=== PATIENT | male | born 1965 | race Caucasian/White ===

== ENCOUNTER 2025-01-19 09:02 | Outpatient (OUT) | payer MEDICARE, SELFPAY ==
--- OUTSIDE RECORDS SUMMARY | 2024-11-09 09:00 | XMS_ITS ---
Author Organization [facility] Address [address] [place] [address] Care Team Providers Care Locomotive Engineer Diesel Name Role Phone Eunice Bright Primary Care Provider Celina Person [phone] REASON FOR VISIT 6 MONTH Encounters Encounter Location Date Provider Diagnosis [facility] [address] [place] [address] 11/09/2024 Celina Person Plan Of Treatment Next Appt Details Provider Name:Eunice harper, 02/22/2025 11:15:00 AM, [address] [place], [address], Provider Name:Yuliana English , 04/05/2025 10:05:00 AM, [address] [place], [address], Progress Notes * STEVE BUTLERDOB: [birth year] (59 yo M)Acc No.[id number]:11/09/2024 Patient: Jane MANSTEVE Provider: Laith Person :1965 A ge:58 Y S ex:Male Date:11/09/2024 Address:[address] [place] [address] [id number] Pcp:Eunice Bright Subjective: * Chief Complaints: * 1 . 6 MONTH. * Medical History: Objective: * Vitals: Assessment: Plan: * Treatment: * Images: * Electronic signature of Eden Person on 01/19/2025 at 09:06 AM EDT Sign off status: Pending * Provider: Laith Person Date: 0 11/09/2024 Generated for Mary Randle/Abad on: 0 01/19/2025 09:06 AM EDT
--- OUTSIDE RECORDS SUMMARY | 2025-01-18 10:05 | XMS_ITS ---
Author Organization [facility] Address [address] [place] [address] Care Team Providers Care Chemistry Technologist Name Role Phone Eunice Bright Primary Care Provider [phone] Martha Rider [phone] REASON FOR VISIT FILLING Encounters Encounter Location Date Provider Diagnosis [facility] [address] [place] [address] 01/18/2025 Martha Rider Plan Of Treatment Next Appt Details Provider Name:Eunice harper, 02/22/2025 11:15:00 AM, [address] [place], [address], Provider Name:Yuliana English , 04/05/2025 10:05:00 AM, [address] [place], [address], Progress Notes * STEVE BUTLERDOB: [birth year] (59 yo M)Acc No.[id number]:01/18/2025 Patient: Jane MAN STEVE Tellez Provider: Rosalinda Rider :1965 A ge:59 Y S ex:Male Date:01/18/2025 Address:[address] [place] [address] [id number] Pcp:Eunice Bright Subjective: * Chief Complaints: * 1 . FILLING. * Medical History: Objective: * Vitals: Assessment: Plan: * Treatment: * Images: * Electronic signature of Jing Rider , DMD on 01/19/2025 at 09:05 AM EDT Sign off status: Pending * Provider: Rosalinda Rider Date: 0 01/18/2025 Generated for Mary Randle/Abad on: 0 01/19/2025 09:05 AM EDT
--- OUTSIDE RECORDS SUMMARY | 2025-01-19 09:06 | XMS_ITS | Encounter Summary ---
Author Organization [facility] Address [facility] [place] [id number] Care Team Providers Care Ship Carpenter Name Role Phone Wayne Meyers MD Primary Care Provider [phone] Source Comments In the event this information is protected by the Federal Confidentiality of Alcohol and Drug AbusePatient Records regulations: The Federal rules restrict any use of the information to criminally investigate or prosecute any alcohol or drug abuse patient.[facility] Encounter Details Date Type Department Care Team (Late st Contact Info) Description 11/15/2019 Patient Msg Rehab Medicine [address] [phone] Eunice Shepherd MD [address] [phone] RE: Request an Appointment Social History Tobacco Use Types Packs/Day Years Used Date Smoking Tobacco: Former Smokeless Tobacco: Former PHQ-2 Answer Date Recorded PHQ-2 score 3 04/15/2019 Sex and Gender Information Value Date Recorded Sex Assigned at Not on file Legal Sex Male 1:28 PM EDT Gender Identity Not on file Sexual Orientation Not on file documented as of this encounter Plan of Treatment Not on file documented as of this encounter Visit Diagnoses Not on filedocumented in this encounter Care Teams Ship Carpenter Relationship Specialty Start Date End Date Wayne Meyers MD [address] [place] [address] PCP - General Family Medicine 04/12/19 documented as of this encounter
--- OUTSIDE RECORDS SUMMARY | 2025-01-19 09:06 | XMS_ITS | Encounter Summary ---
Author Organization [facility] Address [facility] [place] [id number] Care Team Providers Care Jewelry Engraver Name Role Phone Wayne Meyers MD Primary Care Provider [phone] Source Comments In the event this information is protected by the Federal Confidentiality of Alcohol and Drug AbusePatient Records regulations: The Federal rules restrict any use of the information to criminally investigate or prosecute any alcohol or drug abuse patient.[facility] Encounter Details Date Type Department Care Team (Late st Contact Info) Description 02/22/2020 Patient Msg Rehab Medicine [address] [phone] Eunice Shepherd MD [address] [phone] RE: Request an Appointment Social History Tobacco Use Types Packs/Day Years Used Date Smoking Tobacco: Former Smokeless Tobacco: Former PHQ-2 Answer Date Recorded PHQ-2 score 3 04/15/2019 Sex and Gender Information Value Date Recorded Sex Assigned at Not on file Legal Sex Male 1:28 PM EDT Gender Identity Not on file Sexual Orientation Not on file COVID-19 Exposure Response Date Recorded In the last month, have you been in contact with someone who was confirmed or suspected to have Coronavirus / COVID-19? No / Unsure 02/22/2020 8:45 AM EDT documented as of this encounter Plan of Treatment Not on file documented as of this encounter Visit Diagnoses Not on filedocumented in this encounter Care Teams Jewelry Engraver Relationship Specialty Start Date End Date Wayne Meyers MD [address] [place] [id number] PCP - General Family Medicine 04/12/19 documented as of this encounter
--- OUTSIDE RECORDS SUMMARY | 2025-01-19 09:06 | XMS_ITS | Encounter Summary ---
Author Organization [facility] Address [address] [place] [address] Care Team Providers Care Truck Trailer Mechanic Name Role Phone Wayne Meyers MD Primary Care Provider [phone] Source Comments In the event this information is protected by the Federal Confidentiality of Alcohol and Drug AbusePatient Records regulations: The Federal rules restrict any use of the information to criminally investigate or prosecute any alcohol or drug abuse patient.[facility] Encounter Details Date Type Department Care Team (Late st Contact Info) Description 07/18/2019 Patient Msg Rehab Medicine [address] [phone] Provider, [facility] surgical eval info Social History Tobacco Use Types Packs/Day Years [...] on filedocumented in this encounter Care Teams Truck Trailer Mechanic Relationship Specialty Start Date End Date Wayne Meyers MD [address] [place] [address] PCP - General Family Medicine 04/12/19 documented as of this encounter
--- OUTSIDE RECORDS SUMMARY | 2025-01-19 09:06 | XMS_ITS | Patient Health Record ---
Author Organization [email or web address] Address [address] [place] [address] Care Team Providers Care Bread Jockey Name Role Phone Eunice Bright Primary Care Provider [phone] Dr. Medhat Flores Unavailable [phone] Aniyah Suarez Unavailable [phone] Checo Grayson Unavailable [phone] Celina Person Unavailable [phone] Martha Rider Unavailable [phone] Allergies No Known Allergies Reason For Referral No Information Medications Medication SIG (Take, Route, Frequency, Duration) Notes Start Date End Date Status Gabapentin 300 MG 1 capsule Orally Onc e a day Not-Taking tiZANidine HCl 4 MG 1 tablet as needed Orally Three times a day Not-Taking Cyclobenzaprine HCl 10 MG 1 tablet at be dtime as needed Orally three times a day (tid) as needed (prn) Not-Taking Diclofenac 35 MG 1 capsule as needed Orally Three times a day Not-Taking QUEtiapine Fumarate 400 MG TAKE 1 TABLET BY MOUTH DAILY AT BEDTIME Orally daily; Duration: 30 days Active lamoTRIgine 200 MG TAKE 1 TABLET BY MOUTH DAILY Orally daily; Duration: 30 days Active buPROPion HCl 100 MG 1 tablet Orally artis ly in AM; Duration: 30 days Active Diclofenac Potassium 50 MG 1 tablet with food or milk as needed Orally Twice a day Active Social History Tobacco Use: Social History Observation Description Date Details (start date - stop date) Current Smoker NA - NA Alcohol Screening: Question Answer Notes Did you have a drink contain ing alcohol in the past year? Yes How often did you have a dri nk containing alcohol in the past year? Two to four times a month (2 points) How many drinks did you have on a typical day when you were drinking in the past year? 3 or 4 (1 point) How often did you have six o r more drinks on one occasion in the past year? Less than monthly (1 point) Points 4 Interpretation Positive Tobacco Control (Standard) Question Answer Notes Tobacco use: Current smoker How often do you smoke cigarettes? Every day How many cigarettes a day do you smoke? 5 or les s Problems Problem Type SNOMED Code ICD Code Onset Dates Problem Status W/U Status Risk Notes Problem Bipolar affective disorder, currently manic, moderate (315995606) Bipolar 1 disorder with moderate earline (F31.12) Active confirmed Vital Signs Heart Rate 79 /min 08/24/2024 Temperature 98.8 degrees Fahrenheit 08/24/2024 Oximetry 94 % 08/24/2024 Blood pressure diastolic 92 mm Hg 08/24/2024 Height 76 in 08/24/2024 Blood pressure systolic 145 mm Hg 08/24/2024 Weight 249.8 lbs 08/24/2024 BMI 30.4 kg/m2 08/24/2024 Encounters Encounter Location Date Provider Diagnosis [facility] [address] [place] [address] 02/19/2024 Aniyah Suarez [facility] [address] [place] [address] 08/30/2024 Checo Filimarkell Bipolar 1 disorder with moderate earline F31.12 [facility] [address] [place] [address] 05/06/2024 Medhat Flores Dental caries on pit and fissure surface penetrating into dentin K02.52 ; Necrosis of pulp K04.1 ; Encounter for dental examination and cleaning with abnormal findings Z01.21 ; Other dental procedure status Z98.818 and Disturbances in tooth eruption K00.6 [facility] [address] [place] [address] 05/09/2024 Celina Person Acute gingivitis, plaque induced K05.00 [facility] [place] [address] 09/27/2024 Martha Rider [facility] [address] [place] [address] 01/12/2025 Martha Rider [facility] [address] [place] [place] [address] 03/02/2024 Checo Grayson Bipolar 1 disorder with moderate earline F31.12 [facility] [address] [place] [address] 08/24/2024 Checo Grayson Bipolar 1 disorder with moderate earline F31.12 Assessments Encounter Date Diagnosis (ICD Code) Assessment Notes Treatment Notes Treatment Clinical Notes Section Notes 03/02/2024 Bipolar 1 disorder with moderate earline (ICD-10 - F31.12) Patient will continue current treatment plan. Patient verbally acknowledges understanding instructions including medication education and has no further questions comments or concerns at this time. . Follow in 6 Month . Recommended treatment for Bipolar disorder includes FDA approved and OFF label medications: second generation antipsychotics and mood stabilizers. Discussed life threatening side effect of Lamotrigine. Pt is to monitor for new skin rashes or sensation of a sunburn or itchiness or redness, mouth sores or sores in mucus membranes, and call provider immediately and or go to ER, and stop the medication. Second generation antipsychotic medications can cause headache, drowsiness, agitation, dizziness, nausea, or extrapyramidal symptoms such as tremors, muscle spasms, slowness of movement or jerking of muscles. . Stable . The patient verbalizes understanding with all questions answered thoroughly and is in agreement with treatment plan. . Continue current treatment. Call for problems . GOALS: . Maintain medication regimen . _Improve mood stability . _Improve anxiety control . _Improve social and interpersonal functioning . Patient/Guardian will call sooner if symptoms worsen. Patient understands to go to ER if needed if symptoms become severe. . Crisis Intervention plan was discussed and agreed upon. Patient/Guardian will call 911 in case of emergency. Emergency contact information was provided to the patient/guardian. . Pharmacological management: . Alternative medication plans were discussed with the patient/guardian. All relevant side effects and potential adverse effects were discussed with the patient/guardian. Standard cautions and potential benefits were discussed. Patient/Guardian consented to the start/continuation of the treatment. 05/06/2024 Dental caries on pit and fissure surface penetrating into dentin (ICD-10 - K02.52) 05/09/2024 Acute gingivitis, plaque induced (ICD-10 - K05.00) 08/24/2024 Bipolar 1 disorder with moderate earline (ICD-10 - F31.12) Patient will continue current treatment plan. Patient verbally acknowledges understanding instructions including medication education and has no further questions comments or concerns at this time. . Follow in 6 Month . Recommended treatment for Bipolar disorder includes FDA approved and OFF label medications: second generation antipsychotics and mood stabilizers. Discussed life threatening side effect of Lamotrigine. Pt is to monitor for new skin rashes or sensation of a sunburn or itchiness or redness, mouth sores or sores in mucus membranes, and call provider immediately and or go to ER, and stop the medication. Second generation antipsychotic medications can cause headache, drowsiness, agitation, dizziness, nausea, or extrapyramidal symptoms such as tremors, muscle spasms, slowness of movement or jerking of muscles. . Stable . The patient verbalizes understanding with all questions answered thoroughly and is in agreement with treatment plan. . Continue current treatment. Call for problems . GOALS: . Maintain medication regimen . _Improve mood stability . _Improve anxiety control . _Improve social and interpersonal functioning . Patient/Guardian will call sooner if symptoms worsen. Patient understands to go to ER if needed if symptoms become severe. . Crisis Intervention plan was discussed and agreed upon. Patient/Guardian will call 911 in case of emergency. Emergency contact information was provided to the patient/guardian. . Pharmacological management: . Alternative medication plans were discussed with the patient/guardian. All relevant side effects and potential adverse effects were discussed with the patient/guardian. Standard cautions and potential benefits were discussed. Patient/Guardian consented to the start/continuation of the treatment. 08/30/2024 Bipolar 1 disorder with moderate earline (ICD-10 - F31.12) 05/06/2024 Necrosis of pulp (ICD-10 - K04.1) 05/06/2024 Encounter for dental examination and cleaning with abnormal findings (ICD-10 - Z01.21) 05/06/2024 Other dental procedure status (ICD-10 - Z98.818) 05/06/2024 Disturbances in tooth eruption (ICD-10 - K00.6) Plan Of Treatment Next Appt Details Provider Name:Eunice harpre, 02/22/2025 11:15:00 AM, [address] [facility], [place], [address], Provider Name:Yuliana English , 04/05/2025 10:05:00 AM, [address], [place], [address], Insurance Providers Payer Name Payer Address Payer Phone Subscriber Number Group Number Insured Name Patient Relationship to Insured Coverage Start Date Coverage End Date [employer] E [address] [place] [address] [id number] STEVE POWELL Self - patient is the insured 3 [employer] [address] [place] [address] [id number] STEVE POWELL Self - patient is the insured 1 2 [employer] CLAIM[employer] [address] [address] [place] [address] [phone] [id number] STEVE POWELL Self - patient is the insured 1 2 [employer] [facility] [address] [address] [place] [address] [id number] STEVE POWELL Self - patient is the insured 1 2 DENTAL [employer] MEDICARE [address] [place] [address] [id number] STEVE POWELL Self - patient is the insured 6 2 DENTAL [employer] MEDICARE [address] [address] [place] [address] [id number] STEVE POWELL Self - patient is the insured 3 Medical (General) History Medical History History ICD Code back injury bipolar Surgical History Surgery Date(Month/Year) hernia tonsillectomy ablation- 11/02
--- OUTSIDE RECORDS SUMMARY | 2025-01-19 09:06 | XMS_ITS | Clinical Summary ---
Author Organization [facility] Address [address] [place] [address] Care Team Providers Care Optics Test Technician Name Role Phone Wayne Meyers MD Primary Care Provider [phone] Allergies No known active allergies Medications DULoxetine (CYMBALTA) 30 mg capsule Take one capsule at bedtime x one week, then increase to two capsules daily as tolerated 60 capsule 2 0 Active Additional Information Patient taking differently: 30 mg ORAL DAILY, Take one capsule at bedtime x one week, then increase to two capsules daily as tolerated, Reason: Changing Therapy/Dosage Form, Reported on 03/12/2020 meloxicam (MOBIC) 7.5 mg tablet Take 1 tablet by mouth twice daily with meals. 60 tablet 1 0 Active DULoxetine (CYMBALTA) 60 mg capsule Take 1 capsule by mouth once daily. 90 capsule 1 0 Active gabapentin (NEURONTIN) 300 mg capsule Take 1 capsule by mouth three times daily for 31 days. 90 capsule 2 1 Active Active Problems Problem Noted Date Diagnosed Date Spinal stenosis of lumbar re gion without neurogenic claudication 04/03/2020 Social History Tobacco Use Types Packs/Day Years Used Date Smoking Tobacco: Former Smokeless Tobacco: Former PHQ-2 Answer Date Recorded PHQ-2 score 3 04/15/2019 Area Deprivation Index Answer Date Geronimo rded National Score (1-100), lower number is lower ri sk Not on file 05/19/2020 State Score (1-10), lower number is lower risk N ot on file 05/19/2020 Data from: https://www.neighborhoodatlas.medicine.[facility].edu/. Last address used for calculation Not on file 05/19/2020 Sex and Gender Information Value Date Recorded Sex Assigned at Not on file Legal Sex Male 1:28 PM EDT Gender Identity Not on file Sexual Orientation Not on file Last Filed Vital Signs Vital Sign Reading Time Taken Comments Blood Pressure 122/65 05/21/2020 12:19 PM EST Pulse 79 05/21/2020 12:19 PM EST Temperature 36.4 C (97.5 F) 04/03/2020 10:41 AM EDT Respiratory Rate 14 04/03/2020 11:11 AM EDT Oxygen Saturation 98% 04/03/2020 11:11 AM EDT Inhaled Oxygen Concentration - - Weight 111.1 kg (245 lb) 05/21/2020 12:19 PM EST Height 193 cm (6' 4 ) 03/12/2020 11:11 AM EDT Body Mass Index 29.82 03/12/2020 11:11 AM EDT Plan of Treatment Health Maintenance Due Date Last Done Comments Anxiety Screening 12/12/1981 Depression Screening 12/12/1981 HIV Screening 12/12/1981 Hepatitis C Screening 12/12/1981 DTaP,Tdap,Td Vaccine (1 - Tdap) 12/12/1982 Lipid Screening 12/12/1998 CT Colonography 12/12/2008 Cologuard (FIT-DNA) 12/12/2008 Colonoscopy 12/12/2008 Colorectal Cancer Screening 12/12/2008 Diabetes Screening 12/12/2008 Fecal Occult Blood 12/12/2008 Prostate Cancer Screening Discussion 12/12/2008 Sigmoidoscopy 12/12/2008 Pneumococcal Vaccine: 50+ (1 of 1 - PCV) 12/12/2013 Shingrix Vaccine (1 of 2) 12/12/2013 Influenza Vaccine (#1) 2025 0, 03/25/2020, 02/24/2019 RSV Vaccine (1 - 1-dose 75+ series) 12/12/2038 Insurance [employer] Care Teams Optics Test Technician Relationship Specialty Start Date End Date Wanye Meyers MD [address] [place] [address] PCP - General Family Medicine 04/12/19
--- OUTSIDE RECORDS SUMMARY | 2025-01-19 09:06 | XMS_ITS | Encounter Summary ---
Author Organization [facility] Address [address] [place] [address] Care Team Providers Care Route Sales Driver Name Role Phone Wayne Meyers MD Primary Care Provider [phone] Encounter Details Date Type Department Care Team (Late st Contact Info) Description 04/29/2023 Abstract [facility] [address] [place] [address] Wayne Meyers MD [address] [place] [address] Social History Tobacco Use Types Packs/Day Years Used Date Smoking Tobacco: Some Days Cigarettes Smokeless Tobacco: Former Humiliation, Afraid, Rape, and Kick questionnair e Answer Date Recorded Within the last year, have y ou been afraid of your partner or ex-partner? No 04/21/2023 Within the last year, have y ou been humiliated or emotionally abused in other ways by your partner or ex-partner? No Within the last year, have y ou been kicked, hit, slapped, or otherwise physically hurt by your partner or ex-partner? No 04/21/2023 Within the last year, have y ou been raped or forced to have any kind of sexual activity by your partner or ex-partner? No 04/21/2023 Social Connection and Isolat ion Panel [NHANES] Answer Date Recorded In a typical week, how many times do you talk on the phone with family, friends, or neighbors? More than three times a week 04/21/2023 How often do you get togethe r with friends or relatives? Twice a week 04/21/2023 How often do you attend chur ch or buddhism services? 1 to 4 times per year 04/21/2023 Do you belong to any clubs o r organizations such as anabaptism groups, unions, fraternal or athletic groups, or school groups? No 04/21/2023 How often do you attend meet ings of the clubs or organizations you belong to? Never 04/21/2023 Are you , , di vorced, , never , or living with a partner? 04/21/2023 AUDIT-C Answer Date Recorded Q1: How often do you have a drink containing alc ohol? 2-3 times a week 04/28/2023 Q2: How many drinks containi ng alcohol do you have on a typical day when you are drinking? 3 or 4 04/28/2023 Q3: How often do you have si x or more drinks on one occasion? Never 04/28/2023 Overall Financial Resource Strain (CARDIA) Answe r Date Recorded How hard is it for you to pa y for the very basics like food, housing, medical care, and heating? Not hard at all 04/21/2023 PHQ-2 Answer Date Recorded Patient Health Questionnaire-2 Score 0 04/28/2023 [facility] - Occupational Stress Questionnaire Answer Date Recorded Do you feel stress - tense, restless, nervous, or anxious, or unable to sleep at night because your mind is troubled all the time - these days? Only a little 04/21/2023 Exercise Vital Sign Answer Date Recorde d On average, how many days pe r week do you engage in moderate to strenuous exercise (like a brisk walk)? 5 days 04/21/2023 On average, how many minutes do you engage in exercise at this level? 30 min 04/21/2023 Hunger Vital Sign Answer Date Recorded Within the past 12 months, y ou worried that your food would run out before you got the money to buy more. Never true 04/21/20 23 Within the past 12 months, t he food you bought just didn't last and you didn't have money to get more. Never true 04/21/2023 PRAPARE - Transportation Answer Date Re corded In the past 12 months, has l ack of transportation kept you from medical appointments or from getting medications? No 12/2022 In the past 12 months, has l ack of transportation kept you from meetings, work, or from getting things needed for daily living? No 04/21/2023 Housing Stability Vital Sign Answer Abhinav e Recorded In the last 12 months, was t here a time when you were not able to pay the mortgage or rent on time? No 04/21/2023 Number of Places Lived in the Last Year Not on f ile 04/21/2023 In the last 12 months, was t here a time when you did not have a steady place to sleep or slept in a snf (including now)? No 04/21/2023 Sex and Gender Information Value Date Recorded Sex Assigned at Not on file Legal Sex Male 6:51 PM EDT Gender Identity Not on file Sexual Orientation Not on file COVID-19 Exposure Response Date Recorded In the last 10 days, have yo u been in contact with someone who was confirmed or suspected to have Coronavirus/COVID-19? No / Unsure 04/21/2023 12:10 PM EST documented as of this encounter Plan of Treatment Upcoming Encounters Date Type Department Care Team (Late st Contact Info) Description 07/11/2025 1:20 PM EST Office Visit [facility] [address] [place] [place] [address] Hayley Mcghee TRAFFIC POLICE OFFICER [address] [place] [address] documented as of this encounter Visit Diagnoses Not on filedocumented in this encounter Additional Health Concerns Assessment Noted Time PHQ-9 Depression Total Score: 0 04/28/20 3:00 PM EST documented as of this encounter Care Teams Route Sales Driver Relationship Specialty Start Date End Date Wayne Meeyrs MD [address] [place] [address] PCP - General Family Medicine 11/18/22 documented as of this encounter
--- OUTSIDE RECORDS SUMMARY | 2025-01-19 09:06 | XMS_ITS | Clinical Summary ---
Author Organization [facility] Address [address] [place] [address], [address] [place] [address] Care Team Providers Care Salesperson Household Appliances Name Role Phone Wayne Meyers MD Primary Care Provider [phone] Allergies No known active allergies Medications gabapentin (NEURONTIN) 300 MG capsule Take 300 mg by mouth 3 times daily. Active meloxicam (MOBIC) 15 MG tablet Take 15 mg by mouth daily Active Social History Tobacco Use Types Packs/Day Years Used Date Smoking Tobacco: Never Assessed Smokeless Tobacco: Never Sex and Gender Information Value Date Recorded Sex Assigned at Not on file Legal Sex Male 7:46 PM EST Gender Identity Not on file Sexual Orientation Not on file Last Filed Vital Signs Vital Sign Reading Time Taken Comments Blood Pressure - - Pulse - - Temperature 36.4 C (97.6 F) 08/05/2019 10:43 AM EST Respiratory Rate - - Oxygen Saturation - - Inhaled Oxygen Concentration - - Weight 127 kg (280 lb) 08/05/2019 10:43 AM EST Height 182.9 cm (6') 08/05/2019 10:43 AM EST Body Mass Index 37.97 08/05/2019 10:43 AM EST Plan of Treatment Not on file Care Teams Salesperson Household Appliances Relationship Specialty Start Date End Date Wayne Meyers MD PCP - General 07/22/19
--- OUTSIDE RECORDS SUMMARY | 2025-01-19 09:06 | XMS_ITS | Clinical Summary ---
Author Organization [facility] Healthcare Address [address] [place] [address] Care Team Providers Care Rn Referral Name Role Phone Wayne Meyers MD Primary Care Provider Allergies No known active allergies Medications buPROPion (Wellbutrin) 100 MG tablet Take 100 mg by mouth in the morning. Active montelukast (Singulair) 10 MG tablet Take 10 mg by mouth at bedtime. Active lamoTRIgine (LaMICtal) 200 MG tablet Take 200 mg by mouth in the morning. Active QUEtiapine (SEROquel) 400 MG tablet Take 1 tablet by mouth at bedtime. Active diclofenac (Voltaren) 50 MG EC tabletIndicatio ns:Cervical arthritis Take 1 tablet (50 mg) by mouth in the morning and 1 tablet (50 mg) before bedtime. Do not crush, chew, or split.. 180 tablet 3 07/11/2024 Active Active Problems Problem Noted Date Diagnosed Date Bipolar affective disorder, currently manic, mod erate 04/28/2023 Carpal tunnel syndrome 11/26/2022 Cervical arthritis 11/26/2022 Obesity (BMI 30.0-34.9) 11/26/2022 Former smoker, stopped smoking in distant past 0 11/26/2022 DANNY (generalized anxiety disorder) 11/26/2022 Hypertriglyceridemia without hypercholesterolemi a 11/26/2022 MDD (major depressive disorder) 11/26/2022 Osteoarthritis of thumbs, bilateral 11/26/2022 Other chronic pain 11/26/2022 Other intervertebral disc degeneration, lumbar r egion 11/26/2022 Paresthesia of skin 11/26/2022 Sacroiliitis, not elsewhere classified Seasonal allergic rhinitis 11/26/2022 Spinal stenosis, lumbar agustin on without neurogenic claudication 11/26/2022 Immunizations Immunization Administration Dates Next Due Influenza, injectable, MDCK, preservative free, quadrivalent 04/28/2023 Influenza, injectable, quadrivalent 05/21/2021 Influenza, injectable, quadrivalent, preservativ e free 03/28/2020,02/24/2019 Family History Medical History Relation Name Comments No Known Problems Brother ajay 1961 No Known Problems Daughter 1 therese 1990 No Known Problems Daughter 2 prisca 1989 Accidental Father heriberto 55 Alcohol abuse Father heriberto Osteoarthritis Mother Osteoporosis Mother 1931 No Known Problems Son vikki 1993 Relation Name Status Comments Brother ajay Alive Daughter 1 therese Alive Daughter 2 prisca Alive Father heriberto Mother Alive Son vikki Alive Social History Tobacco Use Types Packs/Day Years Used Date Smoking Tobacco: Some Days Cigarettes Smokeless Tobacco: Former Alcohol Use Standard Drinks/Week Comments Yes 5 (1 standard drink = 0.6 oz pur e alcohol) Humiliation, Afraid, Rape, and Kick questionnair e [...] week 04/21/2023 How often do you attend [facility] or sikh services? 1 to 4 times per year 04/21/2023 Do you belong to any clubs o r organizations such as congregational groups, unions, fraternal or athletic groups, or [...] Date Recorded Patient Health Questionnaire-2 Score 0 07/11/2024 [employer] [facility] - Occupational Stress Questionnaire Answer Date Recorded [...] place to sleep or slept in a custodial (including now)? No 04/21/2023 Sex and Gender Information Value Date Recorded Sex Assigned at Not on file Legal Sex Male 6:51 PM EDT Gender Identity Not on file Sexual Orientation Not on file Last Filed Vital Signs Vital Sign Reading Time Taken Comments Blood Pressure 138/86 07/11/2024 1:54 PM EST Pulse 98 07/11/2024 1:54 PM EST Temperature 36.5 C (97.7 F) 07/11/2024 1:54 PM EST Respiratory Rate 16 04/28/2023 3:01 PM EST Oxygen Saturation 97% 07/11/2024 1:54 PM EST Inhaled Oxygen Concentration - - Weight 109 kg (240 lb 9.6 oz) 07/11/2024 1:54 PM EST Height 193 cm (6' 4 ) 07/11/2024 1:54 PM EST Body Mass Index 29.29 07/11/2024 1:54 PM EST Plan of Treatment Upcoming Encounters Date Type Department Care Team (Late st Contact Info) Description 07/11/2025 1:20 PM EST Office Visit [facility] [address] [place] [phone] Hayley Mcghee, STRIPPING AND BOOKING MACHINE OPERATOR [address] [place] [phone] Health Maintenance Due Date Last Done Comments CT Colonography 1963 FIT-DNA 1963 FIT 1963 FOBT 1965 Sigmoidoscopy 1963 Influenza Vaccine (#1) 2025 3, 05/21/2021, 03/28/2020, Additional history exists Medicare Annual Wellness (AWV) 07/11/2025 07/11/2024 , 04/28/2023 Colonoscopy 10/05/2028 10/05/2018 Colorectal Cancer Screening 10/05/2028 Procedures Procedure Name Priority Date/Time Associated Diagnosis Comments COLONOSCOPY Routine 10/05/2018 12:00 PM EDT from Last 3 Months or Most Recently Relevant to Health Maintenance Results * Colonoscopy (10/05/2018 12:00 PM EDT) Anatomical Region Laterality Modality Endoscopy 10/05/2018 12:0 0 PM EDT Narrative 10/05/2018 12:00 PM EDT PERFORMED AT [facility] LOCATION:[id number] Normal Procedure Note CONVERSION, GENERIC - 10/29/2022 PERFORMED AT [facility] LOCATION:[id number] Normal us Wayne Meyers MD ENDOSCOPY PROCEDURE ORDERABLES Final Result from Last 3 Months or Most Recently Relevant to Health Maintenance [place] [address] [employer] MEDICARE ADVANTAGE Care Teams Rn Referral Relationship Specialty Start Date End Date Wayne Meyers MD [address] [place] [address] PCP - General Family Medicine 11/18/22
--- OUTSIDE RECORDS SUMMARY | 2025-01-19 09:06 | XMS_ITS | Encounter Summary ---
Author Organization [facility] Address [address] [place] [address] Care Team Providers Care Director Craft Center Name Role Phone Wayne Meyers MD Primary Care Provider [phone] Encounter Details Date Type Department Care Team (Late st Contact Info) Description 07/11/2024 [facility] [address] [place] [address] Ruth Cordova, GODFREY [address] [place] [address] Social History Tobacco Use Types Packs/Day Years [...] often do you attend chur ch or moravian services? 1 to 4 times per year 04/21/2023 Do you belong to any clubs o r organizations such as spiritism groups, unions, fraternal or athletic groups, or [...] Recorded Patient Health Questionnaire-2 Score 0 07/11/2024 [facility] - Occupational Stress Questionnaire Answer Date [...] place to sleep or slept in a alf (including now)? No 04/21/2023 Sex and Gender Information Value Date Recorded Sex Assigned at Not on file Legal Sex Male 6:51 PM EDT Gender Identity Not on file Sexual Orientation Not on file documented as of this encounter Functional Status * Over the past 2 weeks, how often have you been bothered by any of the following problems? Question Answer Date of Assessment Author Little interest or pleasure in doing things Not at all 07/11/2024 1:54 PM Beth Sherwood MA Feeling down, depressed, or hopeless Not at all 07/11/2024 1:54 PM Beth Sherwood MA Patient Health Questionnaire -2 Score 0 07/11/2024 1:54 PM Beth Sherwood MA * Question Answer Date of Assessment Author Trouble falling or staying a sleep, or sleeping too much Not at all 07/11/2024 1:54 PM Beth Sherwood MA Feeling tired or having jen le energy Not at all 07/11/2024 1:54 PM Beth Sherwood MA Poor appetite or overeating Not at all 07/11/2024 1: 54 PM Beth Sherwood MA Feeling bad about yourself - or that you are a failure or have let yourself or your family down Not at all 07/11/2024 1:54 PM Beth Sherwood MA Trouble concentrating on thi ngs, such as reading the newspaper or watching television Not at all 07/11/2024 1:54 PM EST Beth Alexander MA Moving or speaking so slowly that other people could have noticed? Or the opposite - being so fidgety or restless that you have been moving around a lot more than usual. Not at all 07/11/2024 1:54 PM Beth Sherwood MA Thoughts that you would be b veronica off or hurting yourself in some way Not at all 07/11/2024 1:54 PM EST Beth Alexander MA Patient Health Questionnaire -9 Score 0 07/11/2024 1:54 PM Beth Sherwood MA documented as of this encounter Plan of Treatment Upcoming Encounters Date Type Department Care Team (Late st Contact Info) Description 07/11/2025 1:20 PM EST Office Visit [facility] [address] [place] [address] Hayley Mcghee GUARD IMMIGRATION [address] [place] [address] documented as of this encounter Visit Diagnoses Not on filedocumented in this encounter Additional Health Concerns Assessment Noted Time PHQ-9 Depression Total Score: 0 07/11/19 25 1:54 PM EST documented as of this encounter Care Teams Director Craft Center Relationship Specialty Start Date End Date Wayne Meyers MD [address] [place] [address] PCP - General Family Medicine 11/18/22 documented as of this encounter
--- NOTE | 2025-01-19 09:37 | PM.CN ---
Consult Note: HPI Data of Consult Patient: known to practice within the last 3 years Requesting Physician: Minerva Fontana NP Primary Care Provider: NIESHA WOLFE Consult Narrative Reason for consult: back pain Narrative: Larry Martin a pleasant 59 year old male presents for evaluation of chronic low back and left leg pain, former pt of Dr Stevens. pt has a hx of lumbar facet arthropathy, ddd, and stenosis on prior lumbar MRI from 2019, but no recent imaging or PT. Pain today tight sharp and aching 5/10 increasing to 10/10 with standing, walking, twisting, pushing, pulling, lifting, stairs, activity, and bending. pain improved with lying, sitting, and hot showers. notes numbness tingling to left leg. currently utilizing tylenol and diclofenac with mild benefit without side effects. pt does complete stretching at home daily for 10 minutes with mild benefit. cc:: CC: Minerva Fontana NP Review of Systems ROS Musculoskeletal Reports: back pain and extremity pain Meds Home Medications and Allergies Home Medications ?Medication ?Instructions ?Recorded ?Confirmed ?Type baclofen 10 mg tablet See Rx Instructions .Route 01/19/25 Rx .COMPLEX PRN muscle spasm #90 tabs bupropion HCl 100 mg tablet 100 mg PO DAILY 01/19/25 01/19/25 History diclofenac sodium 50 mg 50 mg PO TID PRN pain 01/19/25 01/19/25 History tablet,delayed release lamotrigine 200 mg tablet 100 mg PO DAILY 01/19/25 01/19/25 History (Lamictal) montelukast 10 mg tablet 10 mg PO DAILY PRN sob 01/19/25 01/19/25 History (Singulair) quetiapine 400 mg tablet 400 mg PO DAILY 01/19/25 01/19/25 History Exam Constitutional Documenting provider has reviewed patient's vital signs: yes Common normals: no apparent distress, oriented x3, healthy appearing, alert and well nourished General appearance: cooperative HENMT Common normals: normocephalic, hearing grossly normal bilaterally and moist oral mucous membranes Head and scalp: normocephalic Eye Common normals: PERRL Pupil: PERRL Neck & C-Spine Common normals: full ROM General: normal visual inspection Chest Common normals: inspection of chest normal Respiratory Common normals: normal respiratory effort, no retractions and no use of accessory muscles Back & Pelvis Lumbar spine/lower back: pain with ROM, lumbar spinal tenderness, paraspinal muscle tenderness and straight leg raise positive left Other: intermittent left L3,4,5, S1 radiculopathy increased pain with standing and walking, improved with forward flexion and sitting occasional cramping and weakness to LLE decreased sensation left L3,4,5 strength 4/5 in LLE and 5/5 in RLE Neuro Common normals: oriented x3 Sensorium/orientation: alert Psych Common normals: mental status grossly normal, thought process normal, cooperative, affect normal, speech normal and activity/motor behavior normal Speech: normal speech Thought process: normal thought process Results Additional Findings Additional findings: If on a controlled substance or opioids, I have checked an OAR[place] report on this patient and there are no aberrancies noted in the prescribing history.??If on a controlled substance or opioid a drug screen was completed and reviewed within the last year, and if there has not been a drug screen completed we ordered one today to monitor higher risk, state monitored pain medication use. As part of providing excellent, safe, comprehensive care, the following was completed at our patient's visit: 1. A medication reconciliation and review to ensure accurate knowledge of current/active medications, including asking our patients to inform us about any [id number] medications or herbal remedies/nutritional supplements/alternative remedies. 2. A review to specifically ensure our patients have had annual screening for screening for depression, screening for tobacco use, and screening for unhealthy alcohol use. For concerning screenings had a discussion with the patient, provided patient education, and recommended follow-up with primary care provider when appropriate. If patient noted with a risk of falling, they received education on strength, gait, and balance training to prevent future risk of falling. Portions of this note may have been carried over from the previous visit and updated as appropriate. Please note this office utilizes paper charting in addition to the electronic medical record. A list of current medications, vitals, and PMH is available there as the clinical staff outside of myself do not have access to QuicklyChat charting during the clinic day operations. As part of providing quality comprehensive care the current medications, vitals, and PMH were reviewed in the paper chart. Assessment and Plan Assessment and Plan (1) Lumbar stenosis with neurogenic claudication: (2) Lumbar spondylosis: Plan 59 year old male with chronic low back and left leg pain, as discussed with pt today his symptoms appear most related to lumbar stenosis with NC in addition to facet arthropathy. at this time i recommend pt undergo lumbar xray with flexion and trial PT. start baclofen 5-10mg TID PRN pain/spasms. continue tylenol and diclofenac PRN. f/u 4-6 weeks to evaluate response to therapy and medications. continue HEP as tolerated
== END 2025-01-19 09:03 | disposition home or self-care (01) ==
PROVIDERS: PCP Family Medicine; Visit Provider Nurse Practitioner
DX: M48.062 Spinal stenosis, lumbar region with neurogenic claudication (principal); M47.816 Spondylosis without myelopathy or radiculopathy, lumbar region; M51.369 Other intervertebral disc degeneration, lumbar region without mention of lumbar back pain or lower extremity pain; M41.86 Other forms of scoliosis, lumbar region
CPT/HCPCS: 72114; G0463

== ENCOUNTER 2025-01-19 09:57 | Outpatient (OUT) | payer MEDICARE, SELFPAY ==
--- NOTE | 2025-01-19 | XR_ITS ---
[facility] [place] [id number] Patient Name: STEVE BUTLER MRN: [id number] date: 1965 Sex: M Assigned Patient Location: [facility] Current Patient Location: [facility] Accession/Order Number: [id number] Exam Date: 01/19/2025 11:15 Report Date: 01/19/2025 11:21 At the request of: HUA SINGER NP Procedure: XR lumbar spine 6V w bending LUMBAR SPINE WITH FLEXION-EXTENSION VIEWS-7 views: CLINICAL HISTORY: Acute back pain, greater on the left with pain, numbness and tingling radiating down the leg for the past 2 weeks. No recent injury. M47.816 COMPARISON: 05/29/2020 AP, lateral (neutral, flexion and extension, both oblique and lateral coned-down views of the lumbosacral junction were obtained. There is subtle levoscoliotic curvature. There is no evidence of fracture. There is approximately 5 to 6 mm of anterolisthesis of L4 and L5. This is slightly less prominent with extension. There is mild disc space narrowing from L3 - 4 down. There is minor endplate spurring and mild lower lumbar facet disease. No pars defect is identified. The sacroiliac joints are maintained and show mild degenerative change. There are no paraspinal soft tissue abnormalities. XR/XR lumbar spine 6V w bending IMPRESSION: SUBTLE SCOLIOSIS AND DEGENERATIVE CHANGES, DESCRIBED. Impression dictated by: Chica Reed M.D. 01/19/2025 11:21 AM Dictation Location: [employer] Electronically authenticated by: [id number] Y Date: 01/19/2025 11:21
--- OUTSIDE RECORDS SUMMARY | 2025-01-19 10:04 | XMS_ITS | Clinical Summary ---
Author Organization [facility] Address [address] [place] [address], [address] [place] [address] Care Team Providers Care Eligibility Analyst Name Role Phone Wayne Meyers MD Primary Care Provider [phone] Allergies No known active allergies Medications gabapentin [...] of Treatment Not on file Care Teams Eligibility Analyst Relationship Specialty Start Date End Date Wayne Meyers MD PCP - General 07/22/19
--- OUTSIDE RECORDS SUMMARY | 2025-01-19 10:04 | XMS_ITS | Encounter Summary ---
Author Organization [facility] Address [address] [place] [place] [address] Care Team Providers Care Copper Plater Name Role Phone Wayne Meyers MD Primary Care Provider [phone] Encounter Details Date Type Department Care Team (Late st Contact Info) Description 04/29/2023 Abstract [facility] [address] [place] [address] Wayne Meyers MD [address] [place] [address] Social History Tobacco Use Types Packs/Day Years [...] often do you attend chur ch or worship services? 1 to 4 times per year 04/21/2023 Do you belong to any clubs o r organizations such as jew groups, unions, fraternal or athletic groups, or [...] Recorded Patient Health Questionnaire-2 Score 0 04/28/2023 [facility] - Occupational Stress [...] place to sleep or slept in a retirement (including now)? No 04/21/2023 Sex and Gender [...] [facility] [address] [place] [address] Hayley Mcghee RECORD CHANGER ASSEMBLER [address] [place] [address] documented as of this encounter Visit Diagnoses Not on filedocumented in this encounter Additional Health Concerns Assessment Noted Time PHQ-9 Depression Total Score: 0 04/28/20 3:00 PM EST documented as of this encounter Care Teams Copper Plater Relationship Specialty Start Date End Date Wayne Meyers MD [address] [place] [address] PCP - General Family Medicine 11/18/22 documented as of this encounter
--- OUTSIDE RECORDS SUMMARY | 2025-01-19 10:04 | XMS_ITS | Encounter Summary ---
Author Organization [facility] Address [address] [place] [address] Care Team Providers Care State Wildlife Officer Name Role Phone Wayne Meyers MD Primary Care Provider [phone] Source Comments In the event this information is protected by the Federal Confidentiality of Alcohol and Drug AbusePatient Records regulations: The Federal rules restrict any use of the information to criminally investigate or prosecute any alcohol or drug abuse patient.[facility] Encounter Details Date Type Department Care Team (Late st Contact Info) Description 07/18/2019 Patient Msg Rehab Medicine [address] [id number] Provider, [facility] surgical eval info Social History [...] on filedocumented in this encounter Care Teams State Wildlife Officer Relationship Specialty Start Date End Date Wayne Meyers MD [address] [place] [address] PCP - General Family Medicine 04/12/19 documented as of this encounter
--- OUTSIDE RECORDS SUMMARY | 2025-01-19 10:04 | XMS_ITS | Encounter Summary ---
Author Organization [facility] Address [address] [place] [address] Care Team Providers Care Portrait Artist Name Role Phone Wayne Meyers MD Primary Care Provider [phone] Encounter Details Date Type Department Care Team (Late st Contact Info) Description 07/11/2024 [facility] [address] [place] [address] Ruth Cordova, GODFREY [address] [facility] [address] [address] [place] [address] Social History Tobacco Use Types Packs/Day Years [...] often do you attend chur ch or mandaen services? 1 to 4 times per year 04/21/2023 Do you belong to any clubs o r organizations such as religion groups, unions, fraternal or athletic groups, or [...] Recorded Patient Health Questionnaire-2 Score 0 07/11/2024 [facility] - Occupational Stress Questionnaire Answer Date [...] [facility] [address] [place] [address] Hayley Mcghee DIRECTOR OF CRITICAL CARE [address] [place] [address] documented as of this encounter Visit Diagnoses Not on filedocumented in this encounter Additional Health Concerns Assessment Noted Time PHQ-9 Depression Total Score: 0 07/11/19 25 1:54 PM EST documented as of this encounter Care Teams Portrait Artist Relationship Specialty Start Date End Date Wyane Meyers MD [address] [place] [address] PCP - General Family Medicine 11/18/22 documented as of this encounter
--- OUTSIDE RECORDS SUMMARY | 2025-01-19 10:04 | XMS_ITS | Clinical Summary ---
Author Organization [facility] Address [address] [place] [address] Care Team Providers Care Front Office Spec Name Role Phone Wayne Meyers MD Primary Care Provider [phone] Allergies No known active allergies Medications DULoxetine [...] N ot on file 05/19/2020 Data from: [email or web address] Last address used for calculation [...] 75+ series) 12/12/2038 Insurance [employer] Care Teams Front Office Spec Relationship Specialty Start Date End Date Wayne Meyers MD [address] [facility] [place] [address] PCP - General Family Medicine 04/12/19
--- OUTSIDE RECORDS SUMMARY | 2025-01-19 10:04 | XMS_ITS | Encounter Summary ---
Author Organization [facility] Address [facility] [id number] Care Team Providers Care Brake Repairer Bus Name Role Phone Wayne Meyers MD Primary Care Provider [phone] Source Comments In the event this information is protected by the Federal Confidentiality of Alcohol and Drug AbusePatient Records regulations: The Federal rules restrict any use of the information to criminally investigate or prosecute any alcohol or drug abuse patient.[facility] Encounter Details Date Type Department Care Team (Late st Contact Info) Description 11/15/2019 Patient Msg Rehab Medicine [address] [phone] Eunice Shepherd MD [address] [phone] RE: Request an Appointment Social History Tobacco [...] on filedocumented in this encounter Care Teams Brake Repairer Bus Relationship Specialty Start Date End Date Wayne Meyers MD [address] [place] [address] PCP - General Family Medicine 04/12/19 documented as of this encounter
--- OUTSIDE RECORDS SUMMARY | 2025-01-19 10:04 | XMS_ITS | Encounter Summary ---
Author Organization [facility] Address [facility] [id number] Care Team Providers Care Training And Quality Manager Name Role Phone Wayne Meyers MD Primary Care Provider [phone] Source Comments In the event this information is protected by the Federal Confidentiality of Alcohol and Drug AbusePatient Records regulations: The Federal rules restrict any use of the information to criminally investigate or prosecute any alcohol or drug abuse patient.[facility] Encounter Details Date Type Department Care Team (Late st Contact Info) Description 02/22/2020 Patient Msg Rehab Medicine [address] [phone] Eunice Shepherd MD [address] [phone] RE: Request an Appointment Social History Tobacco [...] on filedocumented in this encounter Care Teams Training And Quality Manager Relationship Specialty Start Date End Date Wayne Meyers MD [address] [place] [address] PCP - General Family Medicine 04/12/19 documented as of this encounter
--- OUTSIDE RECORDS SUMMARY | 2025-01-19 10:04 | XMS_ITS | Encounter Summary ---
Author Organization [facility] Address [address] [place] [address] Care Team Providers Care Java Manager Name Role Phone Wayne Meyers MD Primary Care Provider [phone] Encounter Details Date Type Department Care Team (Late st Contact Info) Description 01/19/2025 Abstract [facility] [address] [place] [address] Wayne Meyers MD [address] [place] [address] Social History Tobacco Use Types Packs/Day Years [...] often do you attend chur ch or hoahaoism services? 1 to 4 times per year 04/21/2023 Do you belong to any clubs o r organizations such as muslim groups, unions, fraternal or athletic groups, or [...] Recorded Patient Health Questionnaire-2 Score 0 07/11/2024 [facility]ational [facility] Questionnaire Answer [...] place to sleep or slept in a correction (including now)? No 04/21/2023 Sex and Gender Information Value Date Recorded Sex Assigned at Not on file Legal Sex Male 6:51 PM EDT Gender Identity Not on file Sexual Orientation Not on file documented as of this encounter Plan of Treatment Upcoming Encounters Date Type Department Care Team (Late st Contact Info) Description 07/11/2025 1:20 PM EST Office [facility] [address] [place] [address] Hayley Mcghee SAWMILLING OPERATOR [address] [place] [address] documented as of this encounter Visit Diagnoses Not on filedocumented in this encounter Additional Health Concerns Assessment Noted Time PHQ-9 Depression Total Score: 0 07/11/19 25 1:54 PM EST documented as of this encounter Care Teams Java Manager Relationship Specialty Start Date End Date Wayne Meyers MD [address] [place] [address] PCP - General Family Medicine 11/18/22 documented as of this encounter
--- OUTSIDE RECORDS SUMMARY | 2025-01-19 10:04 | XMS_ITS | Clinical Summary ---
Author Organization [facility] Healthcare Address [address] [place] [address] Care Team Providers Care Licensed Reactor Operator Name Role Phone Wayne Meyers MD Primary Care Provider [phone] Allergies No known active allergies Medications buPROPion [...] stopped smoking in distant past 0 11/26/2022 ADNNY (generalized anxiety disorder) 11/26/2022 Hypertriglyceridemia without hypercholesterolemi a 11/26/2022 MDD (major depressive disorder) 11/26/2022 Osteoarthritis of thumbs, bilateral 11/26/2022 Other chronic pain 11/26/2022 Other intervertebral disc degeneration, lumbar r egion 11/26/2022 Paresthesia of skin 11/26/2022 Sacroiliitis, not elsewhere classified Seasonal allergic rhinitis 11/26/2022 Spinal stenosis, lumbar agustin on without neurogenic claudication 11/26/2022 Encounters Date Type Department Care Team Description 01/19/2025 Abstract [facility] [address] [place] [address] Wayne Meyers MD from Last 3 Months Immunizations Immunization Administration Dates Next Due Influenza, injectable, MDCK, preservative free, quadrivalent 04/28/2023 Influenza, injectable, quadrivalent 05/21/2021 Influenza, injectable, quadrivalent, preservativ e free 03/28/2020,02/24/2019 Family History Medical History Relation Name Comments No Known Problems Brother ajay 1960 No Known Problems Daughter 1 therese 1990 No Known Problems Daughter 2 prisca 1989 Accidental Father heriberto 55 Alcohol abuse Father heriberto Osteoarthritis Mother Osteoporosis Mother 193 No Known Problems Son vikki 1993 Relation [...] often do you attend chur ch or anabaptism services? 1 to 4 times per year 04/21/2023 Do you belong to any clubs o r organizations such as gnosticism groups, unions, fraternal or athletic groups, or [...] Health Questionnaire-2 Score 0 07/11/2024 [facility] - Occupational [...] place to sleep or slept in a chcf (including now)? No 04/21/2023 Sex and Gender [...] [facility] [place] [facility] [address] [place] [address] Hayley Mcghee COST CONTROL SUPERVISOR [address] [place] [address] Health Maintenance Due Date Last Done Comments CT Colonography 1965 FIT-DNA 1965 FIT 1965 FOBT 1965 Sigmoidoscopy 1965 Influenza Vaccine (#1) 2025 , 05/21/2021, 03/28/2020, Additional history exists Medicare Annual [...] Narrative 10/05/2018 12:00 PM EDT PERFORMED AT [facility] LOCATION:[id number] Normal Procedure Note CONVERSION, GENERIC - 10/29/2022 PERFORMED AT [facility] LOCATION:[id number] Normal Wayne Meyers MD ENDOSCOPY PROCEDURE ORDERABLES Final Result from Last 3 Months or Most Recently Relevant to Health Maintenance [place] [address] [employer] MEDICARE ADVANTAGE Care Teams Licensed Reactor Operator Relationship Specialty Start Date End Date Wayne Meyers MD [address] [place] [address] PCP - General Family Medicine 11/18/22
== END 2025-01-19 09:58 | disposition home or self-care (01) ==
PROVIDERS: PCP Family Medicine; Visit Provider Nurse Practitioner
DX: M47.816 Spondylosis without myelopathy or radiculopathy, lumbar region (principal); M51.369 Other intervertebral disc degeneration, lumbar region without mention of lumbar back pain or lower extremity pain; M41.86 Other forms of scoliosis, lumbar region
CPT/HCPCS: 72114

== ENCOUNTER 2025-02-16 09:47 | Outpatient (OUT) | payer MEDICARE, SELFPAY ==
--- OUTSIDE RECORDS SUMMARY | 2024-11-09 09:00 | XMS_ITS ---
Author Organization [facility] Address [address] [place] [address] Care Team Providers Care Owner Spa Director Name Role Phone Eunice Bright Primary Care Provider [phone] Celina Person [phone] REASON FOR VISIT 6 MONTH Encounters Encounter Location Date Provider Diagnosis [facility] [address] [place] [address] 11/09/2024 Celina Person Plan Of Treatment Next Appt Details Provider Name:Eunice Poonam harper, 02/22/2025 11:15:00 AM, [address] [place], [address], Provider Name:Radha Liz, 02/2025 10:30:00 AM, [address], [place], [address], Provider Name:Yuliana English , 04/05/2025 10:05:00 AM, [address], [place], [address], Progress Notes * ISABELLE BUTLERDOB: [birth year] (59 yo M)Acc No.[id number]:11/09/2024 Patient: Jane DARRYNBÁRBARAISABELLE Provider: Laith Person :1965 A ge:58 Y S ex:Male Date:11/09/2024 Address:[address] [place] [address] [place], [id number] Pcp:Eunice Bright Subjective: * Chief Complaints: * 1 . 6 MONTH. * Medical History: Objective: * Vitals: Assessment: Plan: * Treatment: * Images: * Electronic signature of Eden Person on 02/16/2025 at 09:49 AM EDT Sign off status: Pending * Provider: Laith Person Date: 0 11/09/2024 Generated for Mary salazar/Ivan/Abad on: 0 02/16/2025 09:49 AM EDT
--- OUTSIDE RECORDS SUMMARY | 2025-01-18 10:05 | XMS_ITS ---
Author Organization [facility] Address [address] [place] [address] Care Team Providers Care Manual Training Teacher Name Role Phone Eunice Bright Primary Care Provider [phone] Martha Rider [phone] REASON FOR VISIT FILLING Encounters Encounter Location Date Provider Diagnosis [facility] [address] [place] [address] 01/18/2025 Martha Rider Plan Of Treatment Next Appt Details Provider Name:Eunice Poonam harper, 02/22/2025 11:15:00 AM, [address] [facility] [place], [address], Provider Name:Radha Liz, 02/2025 10:30:00 AM, [address], [place], [address], Provider Name:Yuliana English , 04/05/2025 10:05:00 AM, [address], [place], [address], Progress Notes * ISABELLE BUTLERDOB: [birth year] (59 yo M)Acc No.[id number]:01/18/2025 Patient: Jane ISABELLE MAN Provider: Rosalinda Rider :1965 A ge:59 Y S ex:Male Date:01/18/2025 Address:[address] [place], [place] [address], [id number] Pcp:Eunice Bright Subjective: * Chief Complaints: * 1 . FILLING. * Medical History: Objective: * Vitals: Assessment: Plan: * Treatment: * Images: * Electronic signature of Jing Rider DMD on 02/16/2025 at 09:49 AM EDT Sign off status: Pending * Provider: Rosalinda Rider Date: 0 01/18/2025 Generated for Mary salazar/Ivan/Abad on: 0 02/16/2025 09:49 AM EDT
--- OUTSIDE RECORDS SUMMARY | 2025-02-16 09:49 | XMS_ITS | Encounter Summary ---
Author Organization [facility] Address [facility] [place] [address] Care Team Providers Care Medical Technologist Chief Name Role Phone Wayne Meyers MD Primary Care Provider [phone] Source Comments In the event this information is protected by the Federal Confidentiality of Alcohol and Drug AbusePatient Records regulations: The Federal rules restrict any use of the information to criminally investigate or prosecute any alcohol or drug abuse patient.[facility] Encounter Details Date Type Department Care Team (Late st Contact Info) Description 11/15/2019 Patient Msg Rehab Medicine [address] [phone] Eunice Shepherd MD [address] [phone] RE: Request an Appointment Social History Tobacco [...] on filedocumented in this encounter Care Teams Medical Technologist Chief Relationship Specialty Start Date End Date Wayne Meyers MD [address] [place] [address] PCP - General Family Medicine 04/12/19 documented as of this encounter
--- OUTSIDE RECORDS SUMMARY | 2025-02-16 09:49 | XMS_ITS | Clinical Summary ---
Author Organization [facility] Address [address] [place] [address], [address] [place] [address] Care Team Providers Care Cook Cashier Food Prep Name Role Phone Wayne Meyers MD Primary Care Provider [phone] Allergies No known active allergies Medications gabapentin [...] of Treatment Not on file Care Teams Cook Cashier Food Prep Relationship Specialty Start Date End Date Wayne Meyers MD PCP - General 07/22/19
--- OUTSIDE RECORDS SUMMARY | 2025-02-16 09:49 | XMS_ITS | Encounter Summary ---
Author Organization [facility] Address [address] [place] [address] Care Team Providers Care Drophammer Operator Name Role Phone Wayne Meyers MD Primary Care Provider [phone] Encounter Details Date Type Department Care Team (Late st Contact Info) Description 07/11/2024 [facility] [address] [place] [address] Ruth Cordova, GODFREY [address] [facility] [address] [place] [address] Social History Tobacco Use Types Packs/Day Years [...] often do you attend chur ch or restorationism services? 1 to 4 times per year 04/21/2023 Do you belong to any clubs o r organizations such as jain groups, unions, fraternal or athletic groups, or [...] Recorded Patient Health Questionnaire-2 Score 0 07/11/2024 [facility] - Occupational Stress Questionnaire Answer Date [...] place to sleep or slept in a usp (including now)? No 04/21/2023 Sex and Gender [...] Not at all 07/11/2024 1:54 PM EST Beht Alexander MA Moving or speaking so slowly [...] [facility] [place] [facility] [address] [place] [address] Hayley Mcghee MEDICAL DEVICE ASSEMBLER [address] [place] [address] documented as of this encounter Visit Diagnoses Not on filedocumented in this encounter Additional Health Concerns Assessment Noted Time PHQ-9 Depression Total Score: 0 07/11/19 25 1:54 PM EST documented as of this encounter Care Teams Drophammer Operator Relationship Specialty Start Date End Date Wayne Meyers MD [address] [place] [address] PCP - General Family Medicine 11/18/22 documented as of this encounter
--- OUTSIDE RECORDS SUMMARY | 2025-02-16 09:49 | XMS_ITS | Clinical Summary ---
Author Organization [facility] Healthcare Address [address] [place] [address] Care Team Providers Care Marketing Teacher Name Role Phone Niesha Meyers MD Primary Care Provider [phone] Allergies No known active allergies Medications buPROPion [...] of skin 11/26/2022 Sacroiliitis, not elsewhere classified 3 Seasonal allergic rhinitis 11/26/2022 Spinal stenosis, lumbar agustin on without neurogenic claudication 11/26/2022 Encounters Date Type Department Care Team Description 01/19/2025 Clinisync Result Encounter [facility] External Department Unsolicited Provider, Generic External Data 01/19/2025 Abstract [facility] [address] [place] [address] Niesha Meyers MD 01/19/2025 Abstract [facility] [address] [place] [address] Niesha Meyers MD from Last 3 Months Immunizations [...] week 04/21/2023 How often do you attend [facility] or faith services? 1 to 4 times per year 04/21/2023 Do you belong to any clubs o r organizations such as yarsanism groups, unions, fraternal or athletic groups, or [...] Recorded Patient Health Questionnaire-2 Score 0 07/11/2024 [facility] - Occupational Stress Questionnaire Answer Date [...] place to sleep or slept in a care home (including now)? No 04/21/2023 Sex and Gender [...] [facility] [place] [facility] [address] [place] [address] Hayley Mcghee, DIAMOND GRINDER [address] [place] [address] Health Maintenance Due Date Last Done Comments CT Colonography 1965 FIT-DNA 1963 FIT 1963 FOBT 1965 Sigmoidoscopy 1965 Influenza Vaccine (#1) 2025 , 05/21/2021, 03/28/2020, Additional history exists Medicare Annual Wellness (AWV) 07/11/2025 07/11/2024 , 04/28/2023 Colonoscopy 10/05/2028 10/05/2018 Colorectal Cancer Screening 10/05/2028 Procedures Procedure Name Priority Date/Time Associated Diagnosis Comments XR LUMBAR SPINE 6V W BENDING 01/19/2025 11:21 AM EDT COLONOSCOPY Routine 10/05/2018 12:00 PM EDT from Last 3 Months or Most Recently Relevant to Health Maintenance Results * XR LUMBAR SPINE 6V W BENDING (01/19/2025 11:21 AM EDT) Anatomical Region Laterality Modality Other 01/19/2025 11:2 1 AM EDT Narrative 01/19/2025 11:23 AM EDT [address] [address] XRay Report Signed Patient: LARRY BUTLER MR#: [id number] : 1965 Acct:[id number] Age/Sex: 59 / M ADM Date: 01/19/25 Loc: RAD Attending Dr: Hua Singer DIAMOND GRINDER Ordering Physician: Hua Singer NP Date of Service: 01/19/25 Procedure(s): XR lumbar spine 6V w bending Accession Number(s): [id number] cc: NIESHA MEYERS ; Hua Singer NP [address] [address] Patient Name: LARRY BUTLER MRN: [id number] date: 1965 Sex: M Assigned Patient Location: RAD Current Patient Location: RAD Accession/Order Number: [id number] Exam Date: 01/19/2025 11:15 Report Date: 01/19/2025 11:21 At the request of: HUA SINGER NP Procedure: XR lumbar spine 6V w bending LUMBAR SPINE WITH FLEXION-EXTENSION VIEWS-7 views: CLINICAL HISTORY: Acute back pain, greater on the left with pain, numbness and tingling radiating down the leg for the past 2 weeks. No recent injury. M47.816 COMPARISON: 05/29/2020 AP, lateral (neutral, flexion and extension, both oblique and lateral coned-down views of the lumbosacral junction were obtained. There is subtle levoscoliotic curvature. There is no evidence of fracture. There is approximately 5 to 6 mm of anterolisthesis of L4 and L5. This is slightly less prominent with extension. There is mild disc space narrowing from L3 - 4 down. There is minor endplate spurring and mild lower lumbar facet disease. No pars defect is identified. The sacroiliac joints are maintained and show mild degenerative change. There are no paraspinal soft tissue abnormalities. XR/XR lumbar spine 6V w bending IMPRESSION: SUBTLE SCOLIOSIS AND DEGENERATIVE CHANGES, DESCRIBED. Impression dictated by: Chica Reed M.D. 01/19/2025 11:21 AM Dictation Location: [place] [address] Electronically authenticated by: [id number] Y Date: 01/19/2025 11:21 Dictated By: Chica Reed M.D. Signed By: 01/19/25 1123 DD/ 1121 TD/TT: Government Property Inspector: Procedure Note Radiology, Radiologist, MD - 01/19/2025 [place] [address] XRay Report Signed Patient: SUSIE BUTLER#: [id number] : 1965Acct:[id number] Age/Sex: 59 / MADM Date: 01/19/25 Loc: [facility] Attending Dr: Hua Singer NP Ordering Physician: Hua Singer NP Date of Service: 01/19/25 Procedure(s): XR lumbar spine 6V w bending Accession Number(s): [id number] cc: NIESHA MEYERS ; Hua Singer NP [address] [place] [id number] Patient Name: LARRY BUTLER MRN: [id number] date: 1965 Sex: M Assigned Patient Location: [facility] Current Patient Location: [facility] Accession/Order Number: [id number] Exam Date: 01/19/2025 11:15 Report Date: 01/19/2025 11:21 At the request of: HUA SINGER NP Procedure: XR lumbar spine 6V w bending LUMBAR SPINE WITH FLEXION-EXTENSION VIEWS-7 views: CLINICAL HISTORY: Acute back pain, greater on the left with pain,numbness and tingling radiating down the leg for the past 2 weeks. No recentinjury. M47.816 COMPARISON: 05/29/2020 AP, lateral (neutral, flexion and extension, both oblique and lateral coned-down views of the lumbosacral junction were obtained. There issubtle levoscoliotic curvature. There is no evidence of fracture. There is approximately 5 to 6 mm of anterolisthesis of L4 and L5. This is slightly less prominent with extension. There is mild disc space narrowing from L3- 4 down. There is minor endplate spurring and mild lower lumbar facetdisease. No pars defect is identified. The sacroiliac joints are maintained andshow mild degenerative change. There are no paraspinal soft tissueabnormalities. XR/XR lumbar spine 6V w bending IMPRESSION: SUBTLE SCOLIOSIS AND DEGENERATIVE CHANGES, DESCRIBED. Impression dictated by: Chica Reed M.D. 01/19/2025 11:21 AM Dictation Location: [place] [address] Electronically authenticated by: [id number] Y Date: 1:21 Dictated By: Chica Reed M.D. Signed By:01/19/25 1123 DD/ 1121 TD/TT: Government Property Inspector: Generic External Data Provider [facility] Final Result * Colonoscopy (10/05/2018 12:00 PM EDT) Anatomical Region Laterality Modality Endoscopy 10/05/2018 12:0 0 PM EDT Narrative 10/05/2018 12:00 PM EDT PERFORMED AT [facility] LOCATION:[id number] Normal Procedure Note CONVERSION, GENERIC - 10/29/2022 PERFORMED AT [facility] LOCATION:[id number] Normal Niesha Meyers MD ENDOSCOPY PROCEDURE ORDERABLES Final Result from Last 3 Months or Most Recently Relevant to Health Maintenance [place] [address] MEDICARE [employer]ET[employer] MEDICARE ADVANTAGE Care Teams Marketing Teacher Relationship Specialty Start Date End Date Niesha Meyers MD [address] [place] [address] PCP - General Family Medicine 11/18/22
--- OUTSIDE RECORDS SUMMARY | 2025-02-16 09:49 | XMS_ITS | Encounter Summary ---
Author Organization [facility] Address [facility] [place] [address] Care Team Providers Care Identification And Records Commander Name Role Phone Wayne Meyers MD Primary Care Provider [phone] Source Comments In the event this information is protected by the Federal Confidentiality of Alcohol and Drug AbusePatient Records regulations: The Federal rules restrict any use of the information to criminally investigate or prosecute any alcohol or drug abuse patient.[facility] Encounter Details Date Type Department Care Team (Late st Contact Info) Description 02/22/2020 Patient Msg Rehab Medicine [address] [phone] Eunice Shepherd MD [address] [phone] RE: Request an Appointment Social History Tobacco [...] on filedocumented in this encounter Care Teams Identification And Records Commander Relationship Specialty Start Date End Date Wayne Meyers MD [address] [place] [address] PCP - General Family Medicine 04/12/19 documented as of this encounter
--- OUTSIDE RECORDS SUMMARY | 2025-02-16 09:49 | XMS_ITS | Encounter Summary ---
Author Organization [facility] Address [address] [place] [address] Care Team Providers Care Loop Cutter Name Role Phone Wayne Meyers MD Primary Care Provider [phone] Encounter Details Date Type Department Care Team (Late st Contact Info) Description 01/19/2025 Abstract [facility] [facility] [address] [place] [address] Wayne Meyers MD [address] [place] [address] Social History Tobacco Use Types Packs/Day Years [...] often do you attend chur ch or buddhist services? 1 to 4 times per year 04/21/2023 Do you belong to any clubs o r organizations such as religious groups, unions, fraternal or athletic groups, or [...] Recorded Patient Health Questionnaire-2 Score 0 07/11/2024 [facility] - Occupational Stress Questionnaire Answer [...] [facility] [place] [facility] [address] [place] [address] Hayley Mcghee CLINIC CMA [address] [place] [address] documented as of this encounter Visit Diagnoses Not on filedocumented in this encounter Additional Health Concerns Assessment Noted Time PHQ-9 Depression Total Score: 0 07/11/19 25 1:54 PM EST documented as of this encounter Care Teams Loop Cutter Relationship Specialty Start Date End Date Wayne Meyers MD [address] [place] [address] PCP - General Family Medicine 11/18/22 documented as of this encounter
--- OUTSIDE RECORDS SUMMARY | 2025-02-16 09:49 | XMS_ITS | Encounter Summary ---
Author Organization [facility] Address [address] [place] [address] Care Team Providers Care Hydrographer Name Role Phone Wayne Meyers MD Primary Care Provider [phone] Encounter Details Date Type Department Care Team (Late st Contact Info) Description 04/29/2023 Abstract [facility] [address] [place] [place] [address] Wayne Meyers MD [address] [place] [address] Social History Tobacco Use Types Packs/Day Years [...] often do you attend chur ch or mu-ism services? 1 to 4 times per year 04/21/2023 Do you belong to any clubs o r organizations such as amish groups, unions, fraternal or athletic groups, or [...] Recorded Patient Health Questionnaire-2 Score 0 04/28/2023 [facility] of Occupat ional Health - Occupational [...] place to sleep or slept in a halfway (including now)? No 04/21/2023 Sex and Gender [...] [facility] [address] [place] [address] Hyaley Mcghee MONORAIL CRANE OPERATOR [address] [place] [address] documented as of this encounter Visit Diagnoses Not on filedocumented in this encounter Additional Health Concerns Assessment Noted Time PHQ-9 Depression Total Score: 0 04/28/20 3:00 PM EST documented as of this encounter Care Teams Hydrographer Relationship Specialty Start Date End Date Wayne Meyers MD [address] [place] [address] PCP - General Family Medicine 11/18/22 documented as of this encounter
--- OUTSIDE RECORDS SUMMARY | 2025-02-16 09:49 | XMS_ITS | Encounter Summary ---
Author Organization [facility] Address [address] [place] [place] [address] Care Team Providers Care Pathology Technologist Name Role Phone Wayne Meyers MD Primary Care Provider [phone] Encounter Details Date Type Department Care Team (Late st Contact Info) Description 01/19/2025 Abstract [facility] [address] [place] [address] Wayne Meyers MD [address] [place] [address] Social History Tobacco Use Types Packs/Day Years [...] often do you attend chur ch or episcopal services? 1 to 4 times per year 04/21/2023 Do you belong to any clubs o r organizations such as zoroastrianism groups, unions, fraternal or athletic groups, or [...] Score 0 07/11/2024 [facility] - Occupational Stress Questionnaire Answer [...] place to sleep or slept in a longterm (including now)? No 04/21/2023 Sex and Gender [...] [facility] [address] [place] [address] Hayley Mcghee CORPORATE COMPLIANCE OFFICER [address] [place] [address] documented as of this encounter Visit Diagnoses Not on filedocumented in this encounter Additional Health Concerns Assessment Noted Time PHQ-9 Depression Total Score: 0 07/11/19 25 1:54 PM EST documented as of this encounter Care Teams Pathology Technologist Relationship Specialty Start Date End Date Wayne Meyers MD [address] [place] [address] PCP - General Family Medicine 11/18/22 documented as of this encounter
--- OUTSIDE RECORDS SUMMARY | 2025-02-16 09:49 | XMS_ITS | Encounter Summary ---
Author Organization [facility] Address [address] [place] [address] Care Team Providers Care Car Lot Attendant Name Role Phone Wayne Meyers MD Primary Care Provider [phone] Source Comments In the event this information is protected by the Federal Confidentiality of Alcohol and Drug AbusePatient Records regulations: The Federal rules restrict any use of the information to criminally investigate or prosecute any alcohol or drug abuse patient.[facility] Encounter Details Date Type Department Care Team (Late st Contact Info) Description 07/18/2019 Patient Msg Rehab Medicine [address] [phone] Provider, [facility] surgical eval info Social History [...] on filedocumented in this encounter Care Teams Car Lot Attendant Relationship Specialty Start Date End Date Wayne Meyers MD [address] [place] [address] PCP - General Family Medicine 04/12/19 documented as of this encounter
--- OUTSIDE RECORDS SUMMARY | 2025-02-16 09:50 | XMS_ITS | Patient Health Record ---
Author Organization [facility] Address [address] [place] [address] Care Team Providers Care Respiratory Director Name Role Phone Eunice Bright Primary Care Provider [phone] Dr. Medhat Flores Unavailable [phone] Aniyah Suarez Unavailable [phone] Checo Grayson Unavailable [phone] Celina Person Unavailable [phone] Martha Rider Unavailable [phone] Allergies No Known Allergies Reason For Referral [...] Problem Bipolar affective disorder, currently manic, moderate ([id number]) Bipolar 1 disorder with moderate earline (F31.12) Active confirmed Vital Signs Heart Rate 79 /min 08/24/2024 Temperature 98.8 degrees Fahrenheit 08/24/2024 Oximetry 94 % 08/24/2024 Blood pressure diastolic 92 mm Hg 08/24/2024 Height 76 in 08/24/2024 Blood pressure systolic 145 mm Hg 08/24/2024 Weight 249.8 lbs 08/24/2024 BMI 30.4 kg/m2 08/24/2024 Encounters Encounter Location Date Provider Diagnosis [facility] [address] [place] [address] 02/19/2024 Aniyah Suarez [facility] [address] [place] [address] 08/30/2024 Checo Filimarkell Bipolar 1 disorder with moderate earline F31.12 [facility] [address] [place] [address] 05/06/2024 Medhat Flores Dental caries on pit and fissure surface penetrating into dentin K02.52 ; Necrosis of pulp K04.1 ; Encounter for dental examination and cleaning with abnormal findings Z01.21 ; Other dental procedure status Z98.818 and Disturbances in tooth eruption K00.6 [facility] [address] [place] [address] 05/09/2024 Celina Person Acute gingivitis, plaque induced K05.00 [facility] [place] [address] 09/27/2024 Martha Rider [facility] [address] [place] [address] 01/12/2025 Martha Rider [facility] [address] [facility] [place] [address] 08/24/2024 Checo Grayson Bipolar 1 disorder with moderate earline F31.12 [facility] [address] [place] [address] 03/02/2024 Checo Grayson Bipolar 1 disorder with [...] Name:Eunice harper, 02/22/2025 11:15:00 AM, [address] [facility], [place], [address], Provider Name:Radha Hill, 02/2025 10:30:00 AM, [address], [place], [address], Provider Name:Yuliana English , 04/05/2025 10:05:00 AM, [address], [place], [address], Insurance Providers Payer Name Payer Address Payer Phone Subscriber Number Group Number Insured Name Patient Relationship to Insured Coverage Start Date Coverage End Date [employer] E [address] [place] [address] [id number] STEVE POWELL Self - patient is the insured 3 [employer] [address] [place] [address] [id number] STEVE POWELL Self - patient is the insured 1 2 [employer] [address] [address] [place] [address] [phone] [id number] STEVE POWELL Self - patient is the insured 1 2 [employer] [facility] [address] [address] [place] [address] [id number] STEVE POWELL Self - patient is the insured 1 2 DENTAL [employer] MED[employer]ARE [address] [place] [address] [id number] STEVE POWELL Self - patient is the insured 6 2 DENTAL [employer] MEDICARE [address] [address] [place] [address] [id number] STEVE POWELL Self - patient is the insured 3 Medical (General) History Medical History History ICD Code back injury bipolar Surgical History Surgery Date(Month/Year) hernia tonsillectomy ablation- 11/02
--- OUTSIDE RECORDS SUMMARY | 2025-02-16 09:50 | XMS_ITS | Clinical Summary ---
Author Organization [facility] Address [address] [place] [address] Care Team Providers Care Carpenter Form Name Role Phone Wayne Meyers MD Primary Care Provider [phone] Allergies No known active allergies Medications DULoxetine [...] N ot on file 05/19/2020 Data from: [email or web address] Last address used for calculation Not [...] 75+ series) 12/12/2038 Insurance [employer] Care Teams Carpenter Form Relationship Specialty Start Date End Date Wayne Meyers MD [address] [facility] [place] [address] PCP - General Family Medicine 04/12/19
--- NOTE | 2025-02-16 10:11 | PM.CN ---
Consult Note: HPI Data of Consult Patient: known to practice within the last 3 years Consult date: 02/16/25 Requesting Physician: Minerva Fontana NP Primary Care Provider: NIESHA WOLFE Consult Narrative Reason for consult: back pain Narrative: Larry Martin a pleasant 59 year old male presents for evaluation of chronic low back and left leg pain, former pt of Dr Stevens. pt has a hx of lumbar facet arthropathy, ddd, and stenosis on prior lumbar MRI from 2019, but no recent imaging or PT. Pain today tight sharp and aching 5/10 increasing to 10/10 with standing, walking, twisting, pushing, pulling, lifting, stairs, activity, and bending. pain improved with lying, sitting, and hot showers. notes numbness tingling to left leg. currently utilizing tylenol, baclofen, diclofenac with mild benefit without side effects. pt does complete stretching at home daily for 10 minutes with mild benefit. has had initial PT evaluation, plans to start aquatherapy tomorrow. cc:: CC: Minerva Fontana NP Review of Systems ROS Musculoskeletal Reports: back pain and extremity pain Meds Home Medications and Allergies Home Medications ?Medication ?Instructions ?Recorded ?Confirmed ?Type baclofen 10 mg tablet See Rx Instructions .Route 01/19/25 Rx .COMPLEX PRN muscle spasm #90 tabs bupropion HCl 100 mg tablet 100 mg PO DAILY 01/19/25 01/19/25 History diclofenac sodium 50 mg 50 mg PO TID PRN pain 01/19/25 01/19/25 History tablet,delayed release lamotrigine 200 mg tablet 100 mg PO DAILY 01/19/25 01/19/25 History (Lamictal) montelukast 10 mg tablet 10 mg PO DAILY PRN sob 01/19/25 01/19/25 History (Singulair) quetiapine 400 mg tablet 400 mg PO DAILY 01/19/25 01/19/25 History Exam Constitutional Documenting provider has reviewed patient's vital signs: yes Common normals: no apparent distress, oriented x3, healthy appearing, alert and well nourished General appearance: cooperative HENMT Common normals: normocephalic, hearing grossly normal bilaterally and moist oral mucous membranes Head and scalp: normocephalic Eye Common normals: PERRL Pupil: PERRL Neck & C-Spine Common normals: full ROM General: normal visual inspection Chest Common normals: inspection of chest normal Respiratory Common normals: normal respiratory effort, no retractions and no use of accessory muscles Back & Pelvis Lumbar spine/lower back: pain with ROM, lumbar spinal tenderness, paraspinal muscle tenderness and straight leg raise positive left Other: intermittent left L3,4,5, S1 radiculopathy increased pain with standing and walking, improved with forward flexion and sitting occasional cramping and weakness to LLE strength 4/5 in LLE and 5/5 in RLE Neuro Common normals: oriented x3 Sensorium/orientation: alert Psych Common normals: mental status grossly normal, thought process normal, cooperative, affect normal, speech normal and activity/motor behavior normal Speech: normal speech Thought process: normal thought process Results Imaging Lumbar xray: Attestation: I have reviewed the pertinent imaging results. Radiologist's impression: AP, lateral (neutral, flexion and extension, both oblique and lateral coned-down views of the lumbosacral junction were obtained. There is subtle levoscoliotic curvature. There is no evidence of fracture. There is approximately 5 to 6 mm of anterolisthesis of L4 and L5. This is slightly less prominent with extension. There is mild disc space narrowing from L3 - 4 down. There is minor endplate spurring and mild lower lumbar facet disease. No pars defect is identified. The sacroiliac joints are maintained and show mild degenerative change. There are no paraspinal soft tissue abnormalities. Additional Findings Additional findings: If on a controlled substance or opioids, I have checked an [place]AR[place] report on this patient and there are no aberrancies noted in the prescribing history.??If on a controlled substance or opioid a drug screen was completed and reviewed within the last year, and if there has not been a drug screen completed we ordered one today to monitor higher risk, state monitored pain medication use. As part of providing excellent, safe, comprehensive care, the following was completed at our patient's visit: 1. A medication reconciliation and review to ensure accurate knowledge of current/active medications, including asking our patients to inform us about any [id number] medications or herbal remedies/nutritional supplements/alternative remedies. 2. A review to specifically ensure our patients have had annual screening for screening for depression, screening for tobacco use, and screening for unhealthy alcohol use. For concerning screenings had a discussion with the patient, provided patient education, and recommended follow-up with primary care provider when appropriate. If patient noted with a risk of falling, they received education on strength, gait, and balance training to prevent future risk of falling. Portions of this note may have been carried over from the previous visit and updated as appropriate. Please note this office utilizes paper charting in addition to the electronic medical record. A list of current medications, vitals, and PMH is available there as the clinical staff outside of myself do not have access to [facility] charting during the clinic day operations. As part of providing quality comprehensive care the current medications, vitals, and PMH were reviewed in the paper chart. Assessment and Plan Assessment and Plan (1) Lumbar stenosis with neurogenic claudication: Assessment and Plan: YAYA 25%, improved from prior (2) Lumbar spondylosis: Plan 59 year old male with chronic low back and left leg pain, his symptoms appear most related to lumbar stenosis with NC in addition to facet arthropathy. lumbar xray reviewed with pt. continue PT as planned. continue current medications. f/u once PT complete. plan to update MRI of lumbar spine without contrast if pt fails to benefit from PT
== END 2025-02-16 09:48 | disposition home or self-care (01) ==
LOC: PM 09:48
PROVIDERS: PCP Family Medicine; Visit Provider Nurse Practitioner
DX: M48.062 Spinal stenosis, lumbar region with neurogenic claudication (principal); M47.816 Spondylosis without myelopathy or radiculopathy, lumbar region
CPT/HCPCS: G0463

== ENCOUNTER 2025-03-30 09:45 | Outpatient (OUT) | payer MEDICARE, SELFPAY ==
--- OUTSIDE RECORDS SUMMARY | 2024-11-09 09:00 | XMS_ITS ---
Author Organization [facility] Address [address] [place] [address] Care Team Providers Care X Ray Physician Name Role Phone Eunice Bright Primary Care Provider [phone] Celina Person [phone] REASON FOR VISIT 6 MONTH Encounters Encounter Location Date Provider Diagnosis [facility] [address] [place] [address] 11/09/2024 Celina Person Plan Of Treatment Next Appt Details Provider Name:Yuliana English , 04/05/2025 10:05:00 AM, [address], [place], [address], Provider Name:Eunice harper, 08/22/2025 11:45:00 AM, [address] [place], [address], Progress Notes * STEVE BUTLERDOB: [birth year] (59 yo M)Acc No.[id number]:11/09/2024 Patient: Jane ERNESTINAROLANSTEVE Provider: Laith Person :1965 A ge:58 Y S ex:Male Date:11/09/2024 Address:[address] [place] [address] [id number] Pcp:Eunice Bright Subjective: * Chief Complaints: * 6 MONTH * Electronic signature of Eden Person on 03/30/2025 at 09:48 AM EDT Sign off status: Pending * Provider: Laith Person Date: 0 11/09/2024 Generated for Mary salazar/Ivan/Abad on: 1 09:48 AM EDT
--- OUTSIDE RECORDS SUMMARY | 2025-01-18 10:05 | XMS_ITS ---
Author Organization [facility] Address [address] [place] [address] Care Team Providers Care Working Foreman Name Role Phone Eunice Bright Primary Care Provider [phone] Martha Rider [phone] REASON FOR VISIT FILLING Encounters Encounter Location Date Provider Diagnosis [facility] [address] [place] [address] 01/18/2025 Martha Rider Plan Of Treatment Next Appt Details Provider Name:Yuliana English , 04/05/2025 10:05:00 AM, [address], [place], [address], Provider Name:Eunice harper, 08/22/2025 11:45:00 AM, [address] [place], [address], Progress Notes * STEVE BUTLERDOB: [birth year] (59 yo M)Acc No.[id number]:01/18/2025 Patient: Jane ERNESTINAROLANSTEVE Provider: Rosalinda Rider :1965 A ge:59 Y S ex:Male Date:01/18/2025 Address:[address] [place] [address] [place] [id number] Pcp:Eunice Bright Subjective: * Chief Complaints: * F ILLING * Electronic signature of Jing Rider DMD on 03/30/2025 at 09:47 AM EDT Sign off status: Pending * Provider: Rosalinda Rider Date: 0 01/18/2025 Generated for Mary salazar/Ivan/Abad on: 1 09:47 AM EDT
--- OUTSIDE RECORDS SUMMARY | 2025-02-22 07:15 | XMS_ITS ---
Author Organization [facility] Address [address] [place] [address] Care Team Providers Care Fire Control Technician B Name Role Phone Eunice Bright Primary Care Provider [phone] REASON FOR VISIT Pt is a 59 year old male, YOBANI from [facility], 6 month f/u, Pt states he is doing pretty good, no concerns, LM Medications Medication SIG (Take, Route, Frequency, Duration) Notes Start Date End Date Status Gabapentin 300 MG Capsule 1 capsule Oral ly Once a day Not-Taking/PRN tiZANidine HCl 4 MG Tablet 1 tablet as needed Orally Three times a day Not-Taking/PRN Cyclobenzaprine HCl 10 MG Tablet 1 tablet at bedtime as needed Orally three times a day (tid) as needed (prn) Not-Taking/PRN buPROPion HCl 100 MG Tablet 1 tablet Orally daily in AM; Duration: 30 days Active QUEtiapine Fumarate 400 MG Tablet TAKE 1 TABLET BY MOUTH DAILY AT BEDTIME Orally daily; Duration: 30 days Active Diclofenac 35 MG Capsule 1 capsule as ne eded Orally Three times a day Not-Taking/PRN Baclofen 10 MG Tablet TAKE 1/2 (ONE-HALF ) TO 1 (ONE) TABLET BY MOUTH THREE TIMES DAILY NEEDED FOR MUSCLE SPASMS Oral; Duration: 30 Days Active lamoTRIgine 200 MG Tablet TAKE 1 TABLET BY MOUTH DAILY Orally daily; Duration: 30 days Active Diclofenac Potassium 50 MG Tablet 1 tablet with food or milk as needed Orally Twice a day Active Vital Signs Blood pressure systolic 146 mm Hg 02/23/20 25 Blood pressure diastolic 93 mm Hg 025 Heart Rate 86 /min 02/22/2025 Height 76 in 02/22/2025 Weight 225.0 lbs 02/22/2025 BMI 27.38 kg/m2 02/22/2025 Oximetry 99 % 02/22/2025 Encounters Encounter Location Date Provider Diagnosis [facility] [address] [place] [address] 02/22/2025 Eunice Bright Bipolar 1 disorder with moderate earline F31.12 Assessments Encounter Date Diagnosis (ICD Code) Assessment Notes Treatment Notes Treatment Clinical Notes Section Notes 02/22/2025 Bipolar 1 disorder with moderate earline (ICD-10 - F31.12) Plan Of Treatment Medication Medication Name Sig Start Date Stop Date Notes buPROPion HCl 100 MG Tablet 1 tablet Ora lly daily in AM; Duration: 30 days QUEtiapine Fumarate 400 MG Tablet TAKE 1 TABLET BY MOUTH DAILY AT BEDTIME Orally daily; Duration: 30 days lamoTRIgine 200 MG Tablet TAKE 1 TABLET BY MOUTH DAILY Orally daily; Duration: 30 days Next Appt Details Provider Name:Yuliana English , 04/05/2025 10:05:00 AM, [address] [place], [address], Provider Name:Eunice Levin Nicolejimena meredith, 08/22/2025 11:45:00 AM, [address] [place], [address], History and Physical Notes * Examination Category Sub-Category Detail Notes Category Not es General Examination . MENTAL STATUS EXAM: . Appearance: Appropriately dressed and groomed, good eye contact, cooperative, pleasant Behavior/Motor Activity: Normal Gait/Station: Within normal limits Speech: Normal Mood: Good Affect: Full Thought processes/Associations: Logical and goal directed Thought Content: Non-psychotic Cognition/Attention/Memory/Con centration: Alert and oriented x 4; grossly intact attention; memory-recent/remote judged adequate by interviewer Insight: Good Judgement: Good language: Within normal limits Fund of Knowledge: [...] Sleep: No . Progress Notes * STEVE BUTLERDOB: [birth year] (59 yo M)Acc No.[id number]:02/22/2025 Behavioral Health Patient: STEVE ALFONSO Provider: Poonam Bright :1965 A ge:59 Y S ex:Male Date:02/22/2025 Address:[address] [place], [place] [address], [id number] Subjective: * Chief Complaints: * P t is a 59 year old male, YOBANI from [facility], 6 month f/uPt states he is doing pretty good, no concernsLM * HPI: C onstitutional: Pt is being seen today for follow up via in-office visit. This Pt is tolerating meds well and taking medications daily. . Pt states he is doing good concerns. . Pt denies mood fluctuation. Energy and [...] activity. Pt is on SSI d/t back injury. . Denies suicidal or homicidal ideation or plan. No morbid thoughts. Interpersonal issues discussed. Support provided. Insight oriented/ Behavior modifying/ Supportive therapy. . * ROS: C ONSTITUTIONAL: No fever, chills, sweats, weakness SKIN: No [...] Hg, SaO2:99%, HR: 86 /min. * Examination: G eneral Examination: . MENTAL STATUS EXAM: . Appearance: Appropriately dressed and groomed, good eye contact, cooperative, pleasant Behavior/Motor Activity: Normal Gait/Station: Within normal limits Speech: Normal Mood: Good Affect: Full Thought processes/Associations: Logical and goal directed Thought Content: Non-psychotic Cognition/Attention/Memory/Concentration: Alert and oriented x 4; grossly intact attention; memory-recent/remote judged adequate by interviewer Insight: Good Judgement: Good language: Within normal limits Fund of Knowledge: [...] Sleep: No . . Assessment: * Assessment: 1. B ipolar 1 disorder with moderate earline - F31.12 (Primary) Plan: * Treatment: Billing Information: * Procedure Codes: * Electronic signature of REINA Myers on 03/30/2025 at 09:48 AM EDT Sign off status: Pending * Provider: Poonam Bright Date: 0 02/22/2025 Generated for Mary Jones on: 1 09:48 AM EDT
--- OUTSIDE RECORDS SUMMARY | 2025-03-23 06:30 | XMS_ITS ---
Author Organization [facility] Address [address] [place] [address] Care Team Providers Care Electromechanical Technician Name Role Phone Eunice Bright Primary Care Provider Radha Hill [phone] REASON FOR VISIT FILLING Encounters Encounter Location Date Provider Diagnosis [facility] [address] [place] [address] 03/23/2025 Radha Hill Plan Of Treatment Next Appt Details Provider Name:Yuliana English , 04/05/2025 10:05:00 AM, [address] [place], [address], Provider Name:Eunice harper, 08/22/2025 11:45:00 AM, [address] [place], [address], Progress Notes * STEVE BUTLERDOB: [birth year] (59 yo M)Acc No.[id number]:03/23/2025 Patient: Jane MANSTEVE Provider: Luz Hill :1965 A ge:59 Y S ex:Male Date:03/23/2025 Address:[address] [place] [address] [id number] Pcp:Eunice Bright Subjective: * Chief Complaints: * F ILLING * Electronic signature of Maria C Hill , [id number] on 03/30/2025 at 09:47 AM EDT Sign off status: Pending * Provider: Luz Hill Date: 1 Generated for Mary Randle/Abad on: 1 09:47 AM EDT
--- OUTSIDE RECORDS SUMMARY | 2025-03-30 09:48 | XMS_ITS | Clinical Summary ---
Author Organization [facility] Address [address] [place] [address], [address] [place] [address] Care Team Providers Care Manager Technical Support Name Role Phone Wayne Meyers MD Primary Care Provider [phone] Allergies No known active allergies Medications gabapentin [...] of Treatment Not on file Care Teams Manager Technical Support Relationship Specialty Start Date End Date Wayne Meyers MD PCP - General 07/22/19
--- OUTSIDE RECORDS SUMMARY | 2025-03-30 09:48 | XMS_ITS | Encounter Summary ---
Author Organization [facility] Address [facility] [id number] Care Team Providers Care Napper Fixer Name Role Phone Wayne Meyers MD Primary Care Provider [phone] Source Comments In the event this information is protected by the Federal Confidentiality of Alcohol and Drug AbusePatient Records regulations: The Federal rules restrict any use of the information to criminally investigate or prosecute any alcohol or drug abuse patient.[facility] Encounter Details Date Type Department Care Team (Late st Contact Info) Description 02/22/2020 Patient Msg Rehab Medicine [address] [id number] Eunice Shepherd MD [address] [phone] RE: Request an Appointment Social History Tobacco [...] on filedocumented in this encounter Care Teams Napper Fixer Relationship Specialty Start Date End Date Wayne Meyers MD [address] [place] [address] PCP - General Family Medicine 04/12/19 documented as of this encounter
--- OUTSIDE RECORDS SUMMARY | 2025-03-30 09:48 | XMS_ITS | Encounter Summary ---
Author Organization [facility] Address [address] [place] [address] Care Team Providers Care Silver Wrapper Name Role Phone Wayne Meyers MD Primary Care Provider [phone] Encounter Details Date Type Department Care Team (Late st Contact Info) Description 07/11/2024 [facility] [address] [place] [address] Ruth Cordova, GODFREY [address] [facility] [address] [place] [address] Social History Tobacco Use Types Packs/Day Years [...] or ex-partner? No 04/21/2023 Social Connection and Isolation Panel Answer Date Recorded In a typical week, how many times do you talk on the phone with family, friends, or neighbors? More than three times a week 04/21/2023 How often do you get togethe r with friends or relatives? Twice a week 04/21/2023 How often do you attend chur or samaritan services? 1 to 4 times per year 04/21/2023 Do you belong to any clubs o r organizations such as evangelical groups, unions, fraternal or athletic groups, or [...] Recorded Patient Health Questionnaire-2 Score 0 07/11/2024 [facility] - Occupational Stress [...] Questionnaire -9 Score 0 07/11/2024 1:54 PM EST Beth Alexander MA documented as of this encounter Plan of Treatment Upcoming Encounters Date Type Department Care Team (Late st Contact Info) Description 07/11/2025 1:20 PM EST Office Visit [facility] [address] [place] [place] [address] Hayley Mcghee SOLDERER ASSEMBLY REPAIR [address] [place] [address] documented as of this encounter Visit Diagnoses Not on filedocumented in this encounter Additional Health Concerns Assessment Noted Time PHQ-9 Depression Total Score: 0 07/11/19 25 1:54 PM EST documented as of this encounter Care Teams Silver Wrapper Relationship Specialty Start Date End Date Wayne Meyers MD [address] [place] [address] PCP - General Family Medicine 11/18/22 documented as of this encounter
--- OUTSIDE RECORDS SUMMARY | 2025-03-30 09:48 | XMS_ITS | Encounter Summary ---
Author Organization [facility] Address [address] [place] [address] Care Team Providers Care Drupal Developer Name Role Phone Wayne Meyers MD Primary Care Provider [phone] Encounter Details Date Type Department Care Team (Late st Contact Info) Description 01/19/2025 Abstract [facility] [address] [place] [address] Wayne Meyers MD [address] [place] [address] Social History Tobacco Use Types Packs/Day Years [...] often do you attend chur ch or jehovah's witness services? 1 to 4 times per year 04/21/2023 Do you belong to any clubs o r organizations such as roman catholic groups, unions, fraternal or athletic groups, or [...] Recorded Patient Health Questionnaire-2 Score 0 07/11/2024 [facility]at ional Health - [...] place to sleep or slept in a fpc (including now)? No 04/21/2023 Sex and Gender [...] [facility] [address] [place] [address] Hayley Mcghee CUBE MACHINE TENDER [address] [place] [address] documented as of this encounter Visit Diagnoses Not on filedocumented in this encounter Additional Health Concerns Assessment Noted Time PHQ-9 Depression Total Score: 0 07/11/19 25 1:54 PM EST documented as of this encounter Care Teams Drupal Developer Relationship Specialty Start Date End Date Wayne Meyers MD [address] [place] [address] PCP - General Family Medicine 11/18/22 documented as of this encounter
--- OUTSIDE RECORDS SUMMARY | 2025-03-30 09:48 | XMS_ITS | Encounter Summary ---
Author Organization [facility] Address [address] [place] [address] Care Team Providers Care Base Cloth Inspector Name Role Phone Wayne Meyers MD Primary Care Provider [phone] Source Comments In the event this information is protected by the Federal Confidentiality of Alcohol and Drug AbusePatient Records regulations: The Federal rules restrict any use of the information to criminally investigate or prosecute any alcohol or drug abuse patient.[facility] Encounter Details Date Type Department Care Team (Late st Contact Info) Description 07/18/2019 Patient Msg Rehab Medicine [address] [phone] Provider, [facility] surgical eval info Social History [...] on filedocumented in this encounter Care Teams Base Cloth Inspector Relationship Specialty Start Date End Date Wayne Meyers MD [address] [place] [address] PCP - General Family Medicine 04/12/19 documented as of this encounter
--- OUTSIDE RECORDS SUMMARY | 2025-03-30 09:48 | XMS_ITS | Encounter Summary ---
Author Organization [facility] Address [address] [place] [place] [address] Care Team Providers Care Milk Hauler Name Role Phone Wayne Meyers MD Primary Care Provider [phone] Encounter Details Date Type Department Care Team (Late st Contact Info) Description 02/16/2025 Abstract [facility] [address] [place] [address] Hayley Mcghee, TELEVISION JOURNALIST [address] [place] [address] Social History Tobacco Use Types Packs/Day Years [...] often do you attend chur ch or synagogue services? 1 to 4 times per year 04/21/2023 Do you belong to any clubs o r organizations such as faith groups, unions, fraternal or athletic groups, or [...] Recorded Patient Health Questionnaire-2 Score 0 07/11/2024 [facility] - Occupational Stress Questionnaire Answer Date Recorded [...] place to sleep or slept in a senior care (including now)? No 04/21/2023 Sex and Gender [...] [facility] [address] [place] [address] Hayley Mcghee TELEVISION JOURNALIST [address] [place] [address] documented as of this encounter Visit Diagnoses Not on filedocumented in this encounter Additional Health Concerns Assessment Noted Time PHQ-9 Depression Total Score: 0 07/11/19 25 1:54 PM EST documented as of this encounter Care Teams Milk Hauler Relationship Specialty Start Date End Date Wayne Meyers MD [address] [place] [address] PCP - General Family Medicine 11/18/22 documented as of this encounter
--- OUTSIDE RECORDS SUMMARY | 2025-03-30 09:48 | XMS_ITS | Patient Health Record ---
Author Organization [employer] es Address [address] [place] [address] Care Team Providers Care Burlap Worker Name Role Phone Eunice Bright Primary Care Provider Dr. Medhat Flores Unavailable [phone] Checo Grayson Unavailable [phone] Celina Person Unavailable [phone] Martha Rider Unavailable [phone] Radha Hill Unavailable [phone] Allergies No Known Allergies Reason For Referral [...] daily in AM; Duration: 30 days Active Diclofenac 35 MG [...] as needed Orally Twice a day Active QUEtiapine Fumarate 400 MG Tablet TAKE 1 TABLET BY MOUTH DAILY AT BEDTIME Orally daily; Duration: 30 days Active Social History Tobacco Use: Social History Observation Description Date Details (start date - stop date) Current Smoker NA - NA Social History General Social Info Question Answer Notes Transition of Care: Specialist seen [facility] e last office visit? Yes, report on file 11/13/[address] Stevens Substance abuse/mental health issues of patient/family Patient - Illegal Drug Use uses cannabis Alcohol Screening: Did you have a drink containing alcohol in the past year? Yes How often did you have a drink containing alcohol in the past year? Two to four times a month (2 points) How many drinks did you have on a typical day when you were drinking in the past year? 3 or 4 (1 point) How often did you have six or more drinks on one occasion in the past year? Less than monthly (1 point) Points 4 Interpretation Positive Tobacco Use: Social Info Question Answer Notes Tobacco Control (Standard) Tobacco use: Current smoker How often do you smoke cigarettes? Every day How many cigarettes a day do you smoke? 5 or less Problems Problem Type SNOMED Code ICD Code Onset Dates Problem Status W/U Status Risk Notes Problem Bipolar affective disorder, currently manic, moderate ([id number]) Bipolar 1 disorder with moderate earline (F31.12) Active confirmed Vital Signs Heart Rate 86 /min 02/22/2025 Temperature 98.8 degrees Fahrenheit 08/24/2024 Oximetry 99 % 02/22/2025 Blood pressure diastolic 93 mm Hg 02/22/2025 Height 76 in 02/22/2025 Blood pressure systolic 146 mm Hg 02/22/2025 Weight 225.0 lbs 02/22/2025 BMI 27.38 kg/m2 02/22/2025 Encounters Encounter Location Date Provider Diagnosis [facility] [address] [place] [address] 03/29/2025 Eunice Bright Bipolar 1 disorder with moderate earline F31.12 [facility] [address] [place] [address] 08/30/2024 Checo Grayson Bipolar 1 disorder with moderate earline F31.12 [facility] [address] [place] [address] 09/27/2024 Martha Rider [facility] [address] [place] [address] 01/12/2025 Martha Rider [facility] [address] [place] [address] 02/22/2025 Eunice Bright Bipolar 1 disorder with moderate earline F31.12 [facility] [address] [place] [address] 08/24/2024 Checo Grayson Bipolar 1 disorder with moderate earline F31.12 [facility] [address] [place] [address] 05/06/2024 Medhat Flores Dental caries on pit and fissure surface penetrating into dentin K02.52 ; Necrosis of pulp K04.1 ; Encounter for dental examination and cleaning with abnormal findings Z01.21 ; Other dental procedure status Z98.818 and Disturbances in tooth eruption K00.6 [facility] [address] [place] [address] 05/09/2024 Celina Person Acute gingivitis, plaque induced K05.00 Assessments Encounter Date Diagnosis (ICD Code) Assessment Notes Treatment Notes Treatment Clinical Notes Section Notes 05/06/2024 Dental caries on pit and fissure [...] disorder with moderate earline (ICD-10 - F31.12) 02/22/2025 Bipolar 1 disorder with moderate earline (ICD-10 - F31.12) 03/29/2025 Bipolar 1 disorder with moderate earline (ICD-10 - F31.12) 05/06/2024 Necrosis of pulp (ICD-10 - K04.1) 05/06/2024 Encounter for dental examination and cleaning with abnormal findings (ICD-10 - Z01.21) 05/06/2024 Other dental procedure status (ICD-10 - Z98.818) 05/06/2024 Disturbances in tooth eruption (ICD-10 - K00.6) Plan Of Treatment Next Appt Details Provider Name:Yuliana English , 04/05/2025 10:05:00 AM, [address] [place], [address], Provider Name:Eunice harper, 08/22/2025 11:45:00 AM, [address] [place], [address], Insurance Providers Payer Name Payer Address Payer Phone Subscriber Number Group Number Insured Name Patient Relationship to Insured Coverage Start Date Coverage End Date [employer] MED[employer]ARE [employer] E [address] [place] [address] [id number] STEVE POWELL Self - patient is the insured [employer] [address] [place] [address] [id number] STEVE POWELL Self - patient is the insured 1 2 [employer] CLAIM[employer] [address] [address] [place] [address] [id number] STEVE POWELL Self - patient is the insured [address] [facility] [address] [address] [place] [address] [id number] STEVE POWELL Self - patient is the insured 1 2 DENTAL [employer] MEDICARE [address] [place] [address] [id number] STEVE POWELL Self - patient is the insured 6 2 DENTAL [employer] MEDICARE [address] [address] [place] [address] [id number] STEVE POWELL Self - patient is the insured 3 Medical (General) History Medical History History ICD Code back injury bipolar Surgical History Surgery Date(Month/Year) hernia tonsillectomy ablation- 11/02
--- OUTSIDE RECORDS SUMMARY | 2025-03-30 09:48 | XMS_ITS | Encounter Summary ---
Author Organization [facility] Address [facility] [place] [id number] Care Team Providers Care Chief Ophthalmic Technician Name Role Phone Wayne Meyers MD Primary Care Provider [phone] Source Comments In the event this information is protected by the Federal Confidentiality of Alcohol and Drug AbusePatient Records regulations: The Federal rules restrict any use of the information to criminally investigate or prosecute any alcohol or drug abuse patient.[facility] Encounter Details Date Type Department Care Team (Late st Contact Info) Description 11/15/2019 Patient Msg Rehab Medicine [address] [id number] Eunice Shepherd MD [address] [id number] RE: Request an Appointment Social History Tobacco [...] on filedocumented in this encounter Care Teams Chief Ophthalmic Technician Relationship Specialty Start Date End Date Wayne Meyers MD [address] [place] [address] PCP - General Family Medicine 04/12/19 documented as of this encounter
--- OUTSIDE RECORDS SUMMARY | 2025-03-30 09:48 | XMS_ITS | Encounter Summary ---
Author Organization [facility] Address [address] [place] [address] Care Team Providers Care Flat Folder Name Role Phone Wayne Meyers MD Primary Care Provider [phone] Encounter Details Date Type Department Care Team (Late st Contact Info) Description 04/29/2023 Abstract [facility] [address] [place] [address] Wayne Meyers MD [address] [place] [address] Social History Tobacco Use Types Packs/Day Years [...] often do you attend chur ch or latter-day services? 1 to 4 times per year 04/21/2023 Do you belong to any clubs o r organizations such as zoroastrian groups, unions, fraternal or athletic groups, or [...] Recorded Patient Health Questionnaire-2 Score 0 04/28/2023 [facility] - [...] place to sleep or slept in a prison (including now)? No 04/21/2023 Sex and Gender [...] Description 07/11/2025 1:20 PM EST [facility] [address] [place] [address] Hayley Mcghee OPTOMETRY ASSISTANT [address] [place] [address] documented as of this encounter Visit Diagnoses Not on filedocumented in this encounter Additional Health Concerns Assessment Noted Time PHQ-9 Depression Total Score: 0 04/28/20 3:00 PM EST documented as of this encounter Care Teams Flat Folder Relationship Specialty Start Date End Date Wayne Meyers MD [address] [place] [address] PCP - General Family Medicine 11/18/22 documented as of this encounter
--- OUTSIDE RECORDS SUMMARY | 2025-03-30 09:48 | XMS_ITS | Encounter Summary ---
Author Organization [facility] Address [address] [place] [place] [address] Care Team Providers Care Luggage Maker Name Role Phone Wayne Meyers MD Primary Care Provider [phone] Encounter Details Date Type Department Care Team (Late st Contact Info) Description 01/19/2025 Abstract [facility] [address] [place] [place] [address] Wayne Meyers MD [address] [place] [address] Social History Tobacco Use Types Packs/Day Years [...] often do you attend chur ch or hindu services? 1 to 4 times per year 04/21/2023 Do you belong to any clubs o r organizations such as confucianism groups, unions, fraternal or athletic groups, or [...] Recorded Patient Health Questionnaire-2 Score 0 07/11/2024 [facility] - [...] place to sleep or slept in a [facility] (including now)? No 04/21/2023 Sex and Gender [...] [facility] [address] [place] [address] Hayley Mcghee BLOWER AND COMPRESSOR ASSEMBLER [address] [place] [address] documented as of this encounter Visit Diagnoses Not on filedocumented in this encounter Additional Health Concerns Assessment Noted Time PHQ-9 Depression Total Score: 0 07/11/19 25 1:54 PM EST documented as of this encounter Care Teams Luggage Maker Relationship Specialty Start Date End Date Wayne Meyers MD [address] [place] [address] PCP - General Family Medicine 11/18/22 documented as of this encounter
--- OUTSIDE RECORDS SUMMARY | 2025-03-30 09:48 | XMS_ITS | Clinical Summary ---
Author Organization [facility] Address [address] [place] [address] Care Team Providers Care Cemetery Manager Name Role Phone Niesha Meyers MD Primary Care Provider [phone] Allergies No known active allergies Medications buPROPion [...] Encounters Date Type Department Care Team Description 02/16/2025 Abstract [facility] [address] [place] [address] Hayley Mcghee, ENGINEER 01/19/2025 Clinisync Result Encounter [facility] External Department Unsolicited Provider, Generic External Data 01/19/2025 [facility] [address] [place] [address] Niesha Meyers MD 01/19/2025 Abstract [facility] [address] [place] [address] Niesha Meyers MD from Last 3 Months Immunizations Immunization Administration Dates Next Due Influenza, injectable, MDCK, preservative free, quadrivalent 04/28/2023 Influenza, injectable, quadrivalent 05/21/2021 Influenza, injectable, quadrivalent, preservativ e free 03/28/2020,02/24/2019 Family History Medical History Relation Name Comments No Known Problems Brother ajay monteiro 1961 No Known Problems Daughter 1 therese [...] How often do you attend chur or scientology services? 1 to 4 times per year 04/21/2023 Do you belong to any clubs o r organizations such as yarsani groups, unions, fraternal or athletic groups, or [...] Recorded Patient Health Questionnaire-2 Score 0 07/11/2024 [facility] [place] [facility] Occupat ional Health - Occupational Stress [...] place to sleep or slept in a [place] [facility] [place] (including now)? No 04/21/2023 Sex and Gender [...] [facility] [address] [place] [address] Hayley Mcghee NP [address] [place] [address] Health Maintenance Due Date Last Done [...] AM EDT Narrative 01/19/2025 11:23 AM EDT The [address] [address] XRay Report Signed Patient: LARRY BUTLER MR#: [id number] : 1965 Acct:[id number] Age/Sex: 59 / M ADM Date: 01/19/25 Loc: RAD Attending Dr: Hua Singer NP Ordering Physician: Hua Singer NP Date of Service: 01/19/25 Procedure(s): XR lumbar spine 6V w bending Accession Number(s): [id number] cc: NIESHA MEYERS ; Hua Singer NP [address] [address] Patient Name: LARRY BUTLER MRN: [id number] date: 1965 Sex: M Assigned Patient Location: [facility] Current Patient Location: [facility] Accession/Order Number: [id number] Exam Date: 01/19/2025 11:15 Report Date: 01/19/2025 [...] Reed M.D. 01/19/2025 11:21 AM Dictation Location: [place] [address] Electronically authenticated by: [id number] Y Date: 01/19/2025 11:21 Dictated By: Chica Reed M.D. Signed By: 01/19/25 1123 DD/ 1121 TD/TT: Bowling Ball Molder: Procedure Note Radiology, Radiologist, - 01/19/[address] [address] XRay Report Signed Patient: LARRY BUTLERMR#: [id number] : 1965Acct:[id number] Age/Sex: 59 / MADM Date: 01/19/25 Loc: RAD Attending Dr: Hua Singer NP Ordering Physician: Hua Singer NP Date of Service: 01/19/25 Procedure(s): XR lumbar spine 6V w bending Accession Number(s): [id number] cc: NIESHA MEYERS ; Hua Singer NP [place] [id number] Patient Name: LARRY BUTLER MRN: [id number] date: 1965 Sex: M Assigned Patient Location: [facility] Current Patient Location: [facility] Accession/Order Number: [id number] Exam Date: 01/19/2025 11:15 Report Date: 01/19/2025 [...] Reed M.D. 01/19/2025 11:21 AM [facility] Electron[facility] authenticated by: [id number] Y Date: 1:21 Dictated By: Chica Reed M.D. Signed By:01/19/25 1123 DD/ 1121 TD/TT: Bowling Ball Molder: us Generic External Data Provider [facility] Final Result * Colonoscopy (10/05/2018 12:00 PM EDT) Anatomical Region Laterality Modality Endoscopy 10/05/2018 12:0 0 PM EDT Narrative 10/05/2018 12:00 PM EDT PERFORMED AT [facility] LOCATION:[id number] Normal Procedure Note CONVERSION, GENERIC - 10/29/2022 PERFORMED AT [facility] LOCATION:[id number] Normal us Niesha Meyers MD ENDOSCOPY PROCEDURE ORDERABLES Final Result from Last 3 Months or Most Recently Relevant to Health Maintenance [place] [address] [employer] MEDICARE ADVANTAGE Care Teams Cemetery Manager Relationship Specialty Start Date End Date Niesha Meyers MD [address] [place] [address] PCP - General Family Medicine 11/18/22
--- OUTSIDE RECORDS SUMMARY | 2025-03-30 09:49 | XMS_ITS | Clinical Summary ---
Author Organization [facility] Address [address] [place] [address] Care Team Providers Care Trust Mail Clerk Name Role Phone Wayne Meyers MD Primary Care Provider [phone] Allergies No known active allergies Medications DULoxetine [...] N ot on file 05/19/2020 Data from: [email or web address] Last address used for calculation Not [...] 12/12/2013 Shingrix Vaccine (1 of 2) 12/12/2013 Covid-19 Vaccine (1 - 2024- season) 2025 Influenza Vaccine (#1) 2025 , 03/25/2020, 02/24/2019 RSV Vaccine (1 - 1-dose 75+ series) 12/12/2038 Insurance [employer] Care Teams Trust Mail Clerk Relationship Specialty Start Date End Date Wayne Meyers MD [address] [place] [address] PCP - General Family Medicine 04/12/19
--- NOTE | 2025-03-30 10:07 | P.CN_ITS ---
Consult Note: HPI Data of Consult Patient: known to practice within the last 3 years Consult date: 03/30/25 Requesting Physician: Minerva Fontana NP Primary Care Provider: NIESHA WOLFE Consult Narrative Reason for consult: back pain Narrative: Larry Martin a pleasant 59 year old male presents for evaluation of chronic low back and left leg pain, former pt of Dr Stevens. pt has a hx of lumbar facet arthropathy, ddd, and stenosis on prior lumbar MRI from 2019, but no recent imaging or PT. Pain today tight sharp and aching 2-3/10 increasing to 6/10 with standing, walking, twisting, pushing, pulling, lifting, stairs, activity, and bending. pain improved with lying, sitting, and hot showers. notes numbness tingling to left leg. currently utilizing tylenol, baclofen, diclofenac with mild benefit without side effects. Pt has been engaged in PT and HEP > 6 weeks with benefit in radicular pain, continues to endorse moderate low back pain with lifting, standing, walking, stairs, bending, activity cc:: CC: Minerva Fontana NP Review of Systems ROS Musculoskeletal Reports: back pain and extremity pain Meds Home Medications and Allergies Home Medications ?Medication ?Instructions ?Recorded ?Confirmed ?Type baclofen 10 mg tablet See Rx Instructions .Route 0 01/19/25 Rx .COMPLEX PRN muscle spasm #90 tabs bupropion HCl 100 mg tablet 100 mg PO DAILY 01/19/25 0 01/19/25 History diclofenac sodium 50 mg 50 mg PO TID PRN pain 01/19/25 History tablet,delayed release lamotrigine 200 mg tablet 100 mg PO DAILY 01/19/2501/06 History (Lamictal) montelukast 10 mg tablet 10 mg PO DAILY PRN sob 01/1901/19/25 History (Singulair) quetiapine 400 mg tablet 400 mg PO DAILY 01/19/2501/06 History Exam Constitutional Documenting provider has reviewed patient's vital signs: yes Common normals: no apparent distress, oriented x3, healthy appearing, alert and well nourished General appearance: cooperative HENMT Common normals: normocephalic, hearing grossly normal bilaterally and moist oral mucous membranes Head and scalp: normocephalic Eye Common normals: PERRL Pupil: PERRL Neck & C-Spine Common normals: full ROM General: normal visual inspection Chest Common normals: inspection of chest normal Respiratory Common normals: normal respiratory effort, no retractions and no use of accessory muscles Back & Pelvis Lumbar spine/lower back: pain with ROM, lumbar spinal tenderness, paraspinal muscle tenderness and straight leg raise positive left Other: sensation intact BLE strength 5/5 on exam continues to endorse back pain with standing/walking improves with sitting and lying. Neuro Common normals: oriented x3 Sensorium/orientation: alert Psych Common normals: mental status grossly normal, thought process normal, cooperative, affect normal, speech normal and activity/motor behavior normal Speech: normal speech Thought process: normal thought process Results Imaging Lumbar xray: Attestation: I have reviewed the pertinent imaging results. Radiologist's impression: AP, lateral (neutral, flexion and extension, both oblique and lateral coned-down views of the lumbosacral junction were obtained. There is subtle levoscoliotic curvature. There is no evidence of fracture. There is approximately 5 to 6 mm of anterolisthesis of L4 and L5. This is slightly less prominent with extension. There is mild disc space narrowing from L3 - 4 down. There is minor endplate spurring and mild lower lumbar facet disease. No pars defect is identified. The sacroiliac joints are maintained and show mild degenerative change. There are no paraspinal soft tissue abnormalities. Additional Findings Additional findings: If on a controlled substance or opioids, I have checked an [place]AR[place] report on this patient and there are no aberrancies noted in the prescribing history.??If on a controlled substance or opioid a drug screen was completed and reviewed within the last year, and if there has not been a drug screen completed we ordered one today to monitor higher risk, state monitored pain medication use. As part of providing excellent, safe, comprehensive care, the following was completed at our patient's visit: 1. A medication reconciliation and review to ensure accurate knowledge of current/active medications, including asking our patients to inform us about any dbcv-cyk-bseveyp medications or herbal remedies/nutritional supplements/alternative remedies. 2. A review to specifically ensure our patients have had annual screening for screening for depression, screening for tobacco use, and screening for unhealthy alcohol use. For concerning screenings had a discussion with the patient, provided patient education, and recommended follow-up with primary care provider when appropriate. If patient noted with a risk of falling, they received education on strength, gait, and balance training to prevent future risk of falling. Portions of this note may have been carried over from the previous visit and updated as appropriate. Please note this office utilizes paper charting in addition to the electronic medical record. A list of current medications, vitals, and PMH is available there as the clinical staff outside of myself do not have access to [employer] charting during the clinic day operations. As part of providing quality comprehensive care the current medications, vitals, and PMH were reviewed in the paper chart. Assessment and Plan Assessment and Plan (1) Lumbar stenosis with neurogenic claudication: Assessment and Plan: YAYA 16%, improved from prior (2) Lumbar spondylosis: (3) Degenerative disc disease (DDD) of lumbar region with axial back pain without leg pain: Plan The patient has had over 3 months of moderate to severe low back pain with functional impairment and inadequate response to conservative care including NSAIDS (unless there are contraindication such as concurrent blood thinners), multiple oral or topical pain medications, and home exercise program/physical therapy.? Patient has completed >6 weeks of guided home exercise program and/or formal physical therapy program without relief of their symptoms.? I have reviewed the imaging of the lumbar spine and no red flags were identified.? The Oswestry Disability Index was completed, and the patient scored a 16%.? update lumbar MRI without contrast to assess lumbar ddd with back pain and lumbar stenosis with NC continue HEP as tolerated no medication changes f/u after MRI complete
== END 2025-03-30 09:46 | disposition home or self-care (01) ==
LOC: PM 09:45
PROVIDERS: PCP Family Medicine; Visit Provider Nurse Practitioner
DX: M48.062 Spinal stenosis, lumbar region with neurogenic claudication (principal); M47.816 Spondylosis without myelopathy or radiculopathy, lumbar region; M51.360 Other intervertebral disc degeneration, lumbar region with discogenic back pain only
CPT/HCPCS: G0463

== ENCOUNTER 2025-04-11 09:27 | Outpatient (OUT) | payer MEDICARE, SELFPAY ==
--- OUTSIDE RECORDS SUMMARY | 2024-07-20 09:10 | XMS_ITS ---
Author Organization [facility] Address [address] [place] [address] Care Team Providers Care Conveyor Weigher Operator Name Role Phone Eunice Bright Primary Care Provider Dr. Medhat Flores [phone] REASON FOR VISIT FILLING Encounters Encounter Location Date Provider Diagnosis [facility] [address] [place] [address] 07/20/2024 Medhat Flores Plan Of Treatment Next Appt Details Provider Name:Martha Rider, 07/27/2025 02:00:00 PM, [address] [place], [address], Provider Name:Martha Rider, 08/03/2025 01:00:00 PM, [address], [place], [address], Provider Name:Eunice harper, 08/22/2025 11:45:00 AM, [address] , [place], [address], Provider Name:Yuliana English , 10/23/2025 09:30:00 AM, [facility] [place], [address], Progress Notes * STEVE UBTLERDOB: [birth year] (59 yo M)Acc No.[id number]:07/20/2024 Patient:?STEVE BUTLER :?Medhat Flores DDSDOB:1965???Age:58 Y???Sex: MaleDate:07/20/2024Phone:[phone]:[address] [place], [id number]:Eunice Bright Subjective: * Chief Complaints: * F ILLING * Electronic signature of Dr. Medhat Flores , [facility], [id number] on 04/11/2025 at 09:29 AM EDTSign off status: Pending * Provider: Rosalinda Flores DDS Date: 0 07/20/2024 Generated for Printing/Faxing/eTransmitting on:?04/11/2025 09:29 AM EDT
--- OUTSIDE RECORDS SUMMARY | 2024-11-09 09:00 | XMS_ITS ---
Author Organization [facility] Address [address] [place] [address] Care Team Providers Care Lighting Equipment Operator Name Role Phone Eunice Bright Primary Care Provider Celina Person [phone] REASON FOR VISIT 6 MONTH Encounters Encounter Location Date Provider Diagnosis [facility] [address] [place] [address] 11/09/2024 Celina Person Plan Of Treatment Next Appt Details Provider Name:Martha Rider, 07/27/2025 02:00:00 PM, [address], [place], [address], Provider Name:Martha Rider, 08/03/2025 01:00:00 PM, [address], [place], [address], Provider Name:Eunice harper, 08/22/2025 11:45:00 AM, [address], [place], [address], Provider Name:Yuliana English , 10/23/2025 09:30:00 AM, [address] [place], [address], Progress Notes * STEVE BUTLERDOB: [birth year] (59 yo M)Acc No.[id number]:11/09/2024 Patient:?STEVE BUTLER :?Celina PersonDOB:1965???Age:58 Y???Sex: MaleDate:11/09/2024Phone:[phone]:[address] [place], [id number]:Eunice Bright Subjective: * Chief Complaints: * 6 MONTH * Electronic signature of Celina Person on 04/11/2025 at 09:30 AM EDTSign off status: Pending * Provider: Laith Person Date: 0 11/09/2024 Generated for Printing/Faxing/eTransmitting on:?04/11/2025 09:30 AM EDT
--- OUTSIDE RECORDS SUMMARY | 2025-01-18 10:05 | XMS_ITS ---
Author Organization [facility] Address [address] [place] [address] Care Team Providers Care Marine Painter Name Role Phone Eunice Bright Primary Care Provider [phone] Martha Rider [phone] REASON FOR VISIT FILLING Encounters Encounter Location Date Provider Diagnosis [facility] [address] [place] [address] 01/18/2025 Martha Rider Plan Of Treatment Next Appt Details Provider Name:Martha Rider, 07/27/2025 02:00:00 PM, [address], [place], [address], Provider Name:Martha Rider, 08/03/2025 01:00:00 PM, [address], [place], [address], Provider Name:Eunice harper, 08/22/2025 11:45:00 AM, [address] , [place], [address], Provider Name:Yuliana English , 10/23/2025 09:30:00 AM, [facility] [place], [address], Progress Notes * STEVE BUTLERDOB: [birth year] (59 yo M)Acc No.[id number]:01/18/2025 Patient:?STEVE BUTLER :?Martha RiderDOB:1965???Age:59 Y???Sex:Male Date:01/18/2025Phone:[phone]:[address] [place], [id number] Pcp:Eunice Bright Subjective: * Chief Complaints: * F ILLING * Electronic signature of Martha Rider DMD on 04/11/2025 at 09:29 AM EDTSign off status: Pending * Provider: Rosalinda Rider Date: 0 01/18/2025 Generated for Printing/Faxing/eTransmitting on:?04/11/2025 09:29 AM EDT
--- OUTSIDE RECORDS SUMMARY | 2025-02-22 07:15 | XMS_ITS ---
Author Organization [facility] Address [address] [place] [address] Care Team Providers Care Early Childhood Associate Name Role Phone Eunice Bright Primary Care Provider REASON FOR VISIT Pt is a 59 year old male, YOBANI from [facility], 6 month f/u, Pt states [...] 02/22/2025 Encounters Encounter Location Date Provider Diagnosis [facility] [address] [place] [address] 02/22/2025 Eunice Bright Bipolar 1 disorder with [...] Details Provider Name:Martha Rider, 07/27/2025 02:00:00 PM, [facility] [address], [place], [address], Provider Name:Martha Rider, 08/03/2025 01:00:00 PM, [address], [place], [address], Provider Name:Eunice harper, 08/22/2025 11:45:00 AM, [address] [place] [address], [address], Provider Name:Yuliana English , 10/23/2025 09:30:00 AM, [address], [place], [address], History and Physical Notes * Examination CategorySub-CategoryDetailNotesCategory [...] STEVE BUTLER RosalindaDOB: [birth year] (59 yo M)Acc No.[id number]:02/22/2025 Behavioral Health Patient: STEVE ALFONSO :?Eunice BrightDOB:1965???Age:59 Y???Sex: MaleDate:02/22/2025Phone:[phone]:[address] [place], [place] [address]-[id number] Subjective: * Chief Complaints: * P t is a 59 year old male, YOBANI from [facility], 6 month f/uPt states he [...] * Electronic signature of REINA Jeffers on 04/11/2025 at 09:29 AM EDT Sign off status: Pending * Provider: Poonam Bright Date: 0 02/22/2025 Generated for Printing/Faxing/eTransmitting on:?04/11/2025 09:29 AM EDT
--- OUTSIDE RECORDS SUMMARY | 2025-03-23 06:30 | XMS_ITS ---
Author Organization [facility] Address [address] [place] [address] Care Team Providers Care Rotary Shear Worker Helper Name Role Phone Eunice Bright Primary Care Provider Radha Hill [phone] REASON FOR VISIT FILLING Encounters Encounter Location Date Provider Diagnosis [facility] [address] [place] [address] 03/23/2025 Radha Hill Plan Of Treatment Next Appt Details Provider Name:Martha Rider, 07/27/2025 02:00:00 PM, [address], [place], [address], Provider Name:Martha Rider, 08/03/2025 01:00:00 PM, [address], [place], [address], Provider Name:Eunice harper, 08/22/2025 11:45:00 AM, [address], [place], [address], Provider Name:Yuliana English , 10/23/2025 09:30:00 AM, [address] [place], [address], Progress Notes * STEVE BUTLERDOB: [birth year] (59 yo M)Acc No.[id number]:03/23/2025 Patient:?STEVE BUTLER :?Radha LizDOB:1965???Age:59 Y???Sex:MaleDate: 03/23/2025Phone:[phone]:[address] [place], [place]-[id number]: Eunice Bright Subjective: * Chief Complaints: * F ILLING * Electronic signature of Radha Hill , [id number] on 04/11/2025 at 09:29 AM EDTSign off status: Pending * Provider: Luz Hill Date: Generated for Printing/Faxing/eTransmitting on:?04/11/2025 09:29 AM EDT
--- OUTSIDE RECORDS SUMMARY | 2025-04-11 09:29 | XMS_ITS | Clinical Summary ---
Author Organization [facility] Healthcare Address [address] [place] [address] Care Team Providers Care Professor Of Latin American Studies Name Role Phone Niesha Meyers MD Primary Care Provider [phone] Allergies No known active allergies Medications MedicationSigDispense QuantityRefillsLast FilledStart DateEnd DateStatus buPROPion (Wellbutrin) 100 MG tablet Take 100 mg by mouth in the morning.Active montelukast (Singulair) 10 MG tablet Take 10 mg by mouth at bedtime.Active lamoTRIgine (LaMICtal) 200 MG tablet Take 200 mg by mouth in the morning.Active QUEtiapine (SEROquel) 400 MG tablet Take 1 tablet by mouth at bedtime.Active diclofenac (Voltaren) 50 MG EC tablet Indications:Cervical arthritisTake 1 tablet (50 mg) by mouth in the morning and 1 tablet (50 mg) before bedtime. Do not crush, chew, or split.. 180 tablet 506Active Active Problems ProblemNoted DateDiagnosed DateBipolar affective disorder, currently manic, /14/2023arpal tunnel /14/2023ervical qykwevpou59/14/2023 Obesity (BMI 30.0-34.9)11/26/2022Former smoker, stopped smoking in distant past 11/26/2022AD (generalized anxiety disorder)11/26/2022Hypertriglyceridemia without jtoqddtsxpcrvueipfdm29/14/2023MDD (major depressive disorder)11/26/2022 Osteoarthritis of thumbs, eezluyfzg37/14/2023Other chronic pain11/26/2022Other intervertebral disc degeneration, lumbar lwetym8911/26/2022aresthesia of skin 11/26/2022Sacroiliitis, not elsewhere otqkjrtazq16/14/2023Seasonal allergic gigjmkuq39/14/2023Spinal stenosis, lumbar region without neurogenic claudication 11/26/2022 Encounters DateTypeDepartmentCare CaesIhkdhwzqyic43/04/2025bstract [facility] [address] [place] [address] Hayley Mcghee NP 01/19/2025linisync Result Encounter NOMS External Department Unsolicited Provider, Generic External Data 01/19/2025bstract [facility] [address] [place] [address] Niesha Meyers MD 01/19/2025bstract [facility] [address] [place] [address] Niesha Meyers MD from Last 3 Months Immunizations ImmunizationAdministration DatesNext DueInfluenza, injectable, MDCK, preservative free, cmivlstkhkdf62/14/2023Influenza, injectable, quadrivalent 05/21/2021Influenza, injectable, quadrivalent, preservative free03/28/2020, 02/24/2019 Family History Medical HistoryRelationNameCommentsNo Known ProblemsBrotherscottdob 1961No Known ProblemsDaughter 7yycpwb6355Cu Known ProblemsDaughter 0skuygaet8205Nlxyjspntm deathFatherclydedied 55Alcohol abuseFatherclydeOsteoarthritisMotherOsteoporosis Motherdob 1931No Known ZwkscoxmQktohdy7156SkvyaahjKmllXqclvuNyyceklaMwlnxhpckyxo AliveDaughter 1amandaAliveDaughter 2mellissaAliveFatherclydeDeceasedMotherAlive SonkyleAlive Social History Tobacco UseTypesPacks/DayYears UsedDateSmoking Tobacco: Some DaysCigarettes Smokeless Tobacco: FormerAlcohol UseStandard Drinks/WeekCommentsYes5 (1 standard drink = 0.6 oz pure alcohol)Humiliation, Afraid, Rape, and Kick questionnaire AnswerDate RecordedWithin the last year, have you been afraid of your partner or ex-partner?No04/21/2023Within the last year, have you been humiliated or emotionally abused in other ways by your partner or ex-partner?No04/21/2023 Within the last year, have you been kicked, hit, slapped, or otherwise physically hurt by your partner or ex-partner?No04/21/2023Within the last year, have you been raped or forced to have any kind of sexual activity by your part ner or ex-partner?No04/21/2023Social Connection and Isolation PanelAnswerDate RecordedIn a typical week, how many times do you talk on the phone with family, friends, or neighbors?More than three times a week04/21/2023How often do you get together with friends or relatives?Twice a week04/21/2023How often do you attend yazidism or gnosticism services?1 to 4 times per year04/21/2023o you belong to any clubs or organizations such as yazidism groups, unions, fraBusyLife Software or athletic tricia ups, or school groups?No04/21/2023How often do you attend meetings of the clubs or organizations you belong to?Never04/21/2023re you , , , , never , or living with a partner?Wmkvcdpyr57/07/2023 AUDIT-CAnswerDate RecordedQ1: How often do you have a drink containing alcohol? 2-3 times a week04/28/2023Q2: How many drinks containing alcohol do you have on a typical day when you are drinking?3 or Q3: How often do you have six or more drinks on one occasion?Never04/28/2023Overall Financial Resource Strain (CARDIA)AnswerDate RecordedHow hard is it for you to pay for the very basics like food, housing, medical care, and heating?Not hard at all04/21/2023 PHQ-2AnswerDate RecordedPatient Health Questionnaire-2 Jbxqb122Finmo[facility] of Occupational Health - Occupational Stress QuestionnaireAnswerDate RecordedDo you feel stress - tense, restless, nervous, or anxious, or unable to sleep at night because yourmind is troubled all the time - these days?Only a kelvfh3904/21/2023Exercise Vital SignAnswerDate RecordedOn average, how many days per week do you engage in moderate to strenuous exercise (like a brisk walk)?5 days04/21/2023On average, how many minutes do you engage in exercise at this level?30 min04/21/2023Hunger Vital SignAnswerDate RecordedWithin the past 12 months, you worried that your food would run out before you got the money to buy more.Never true04/21/2023Within the past 12 months, the food you bought just didn't last and you didn't have money to get more.Never true04/21/2023RAPARE - TransportationAnswerDate RecordedIn the past 12 months, has lack of transportation kept you from medical appointments or from getting medications?No 04/21/2023In the past 12 months, has lack of transportation kept you from meetings, work, or from getting things needed for daily living?No04/21/2023 Housing Stability Vital SignAnswerDate RecordedIn the last 12 months, was there a time when you were not able to pay the mortgage or rent on time?No04/21/2023 Number of Places Lived in the Last YearNot on file04/21/2023In the last 12 months, was there a time when you did not have a steady place to sleep or slept in [facility] (including now)?No04/21/2023Sex and Gender InformationValueDate RecordedSex Assigned at BirthNot on fileLegal HadPzlu2608/27/2022 6:51 PM EDT Gender IdentityNot on fileSexual OrientationNot on file Last Filed Vital Signs Vital SignReadingTime TakenCommentsBlood Gjbuqaja606/8601 1:54 PM EST Ztxcu5816/27/2025 1:54 PM BLLBfyjpbmmnec20.5 ??C (97.7 ??F)07/11/2024 1:54 PM ESTRespiratory Mpii472106/28/2022 3:01 PM ESTOxygen Cmzlmedngq69%07/11/2024 1:54 PM ESTInhaled Oxygen Concentration--Ftnrpd263 kg (240 lb 9.6 oz)07/11/2024 1:54 PM RMMFylyeq031 cm (6' 4 )07/11/2024 1:54 PM ESTBody Mass Index29.29007/11/2024 1:54 PM EST Plan of Treatment DateTypeDepartmentCare Team (Latest Contact Info)Mgbnthfirxt39/27/2026 1:20 PM ESTOffice Visit [facility] [facility] [address] [place] [address] Hayley Mcghee, DENTAL EQUIPMENT MECHANIC [address] [place] [address] Health MaintenanceDue DateLast DoneCommentsCT Yppgyobtdyfw40/30/1964FIT-DNA 1963FIT1965FOBT1963 1466Lkfqzjhukwutf09/30/1964Influenza Vaccine (#1), 05/21/2021, 03/28/2020, Additional history exists Medicare Annual Wellness (AWV)6007/11/2024, 04/28/2023olonoscopy Colorectal Cancer Piawkzedl37/23/2029 Procedures Procedure NamePriorityDate/TimeAssociated DiagnosisCommentsXR LUMBAR SPINE 6V W DLFTEAU8901/19/2025 11:21 AM EDT GHRGEOVYIJPJnuhhkz98/23/2019 12:00 PM EDT from Last 3 Months or Most Recently Relevant to Health Maintenance Results * XR LUMBAR SPINE 6V W BENDING (01/19/2025 11:21 AM EDT)Anatomical Region LateralityModalityOtherSpecimen (Source)Anatomical Location / Laterality Collection Method / VolumeCollection TimeReceived Time01/19/2025 11:21 AM EDT Narrative 01/19/2025 11:23 AM EDT [facility] ?[address] ? [place] [address] ?XRay Report ? Signed ? Patient: BUTLER,LARRY ?MR#: [id number] ?? : 1965 ?Acct:[id number] ?? Age/Sex: 59 / M ?ADM Date: 08//25 ?? Loc: RAD ? Attending : Hua Addi DENTAL EQUIPMENT MECHANIC ? Ordering Physician: Hua Singer NP ?? Date of Service: 01/19/25 ?? Procedure(s): XR lumbar spine 6V w bending ?? Accession Number(s): [id number] ? cc: NIESHA MEYERS ; Hua Singer DENTAL EQUIPMENT MECHANIC ? [facility] ? [address] ? [place] [address] ? Patient Name: ?? LARRY ??BUTLER ? MRN: [facility]:[id number] ? date: 1965 ?Sex: M ?? Assigned Patient Location: RAD ?? Current Patient Location: RAD ?? Accession/Order Number: [id number] ?? Exam Date: 01/19/2025 ??11:15 ?Report Date: 01/19/2025 ??11:21 ? At the request of: ?? HUA ??ADDI ??DENTAL EQUIPMENT MECHANIC ? Procedure: ??XR lumbar spine 6V w bending ? LUMBAR SPINE WITH FLEXION-EXTENSION VIEWS-7 views: ? CLINICAL HISTORY: ??Acute back pain, greater on the left with pain, numbness ?? and tingling radiating down the leg for the past 2 weeks. ??No recent injury. ? M47.816 ? COMPARISON: ??05/29/2020 ? AP, lateral (neutral, flexion and extension, both oblique and lateral ?? coned-down views of the lumbosacral junction were obtained. ??There is subtle ?? levoscoliotic curvature. ??There is no evidence of fracture. ??There is ?? approximately 5 to 6 mm of anterolisthesis of L4 and L5. ??This is slightly ?? less prominent with extension. ??There is mild disc space narrowing from L3 - 4 ?? down. ??There is minor endplate spurring and mild lower lumbar facet disease. ? No pars defect is identified. ??The sacroiliac joints are maintained and show ?? mild degenerative change. ??There are no paraspinal soft tissue abnormalities. ? XR/XR lumbar spine 6V w bending ?? IMPRESSION: ? SUBTLE SCOLIOSIS AND DEGENERATIVE CHANGES, DESCRIBED. ? Impression dictated by: Chica Reed M.D. ??01/19/2025 11:21 AM ? Dictation Location: [place] [address] ? Electronically authenticated by: [id number] ??Y ?? Date: 01/19/2025 ??11:21 ? Dictated By: ?Chica Reed M.D. ? Signed By: ?01/19/253 ? DD/ 1121 ? TD/TT: ? Rebar Bender: Procedure Note Radiology, Radiologist, - 01/19/2025 [place] [address] XRay Report Signed Patient: LARRY BUTLERMR#: [id number] : 1965Acct:[id number] Age/Sex: 59 / MADM Date: 01/19/25 Loc: [facility] Attending Dr: Hua Singer NP Ordering Physician: Hua Singer NP Date of Service: 01/19/25 Procedure(s): XR lumbar spine 6V w bending Accession Number(s): [id number] cc: NIESHA MEYERS ; uHa Singer NP The [place] [id number] Patient Name: LARRY BUTLER MRN: [id number] date: 1965 Sex: M Assigned Patient Location: [facility] Current Patient Location: [facility] Accession/Order Number: [id number] Exam Date: 01/19/2025 11:15 Report Date: 01/19/2025 [...] Reed M.D. 01/19/2025 11:21 AM Dictation Location: [place] [address] Electronically authenticated by: [id number] Y Date: 1:21 Dictated By: Chica Reed M.D. Signed By:01/19/25 1123 DD/ 1121 TD/TT: Rebar Bender: Authorizing ProviderResult TypeResult StatusGeneric External Data Provider [facility]INIS[facility]NC IMAGINGFinal Result * Colonoscopy (10/05/2018 12:00 PM EDT)Anatomical RegionLateralityModality EndoscopySpecimen (Source)Anatomical Location / LateralityCollection Method / VolumeCollection TimeReceived Time10/05/2018 12:00 PM EDT Narrative 10/05/2018 12:00 PM EDT PERFORMED AT [facility] LOCATION:[id number] Normal Procedure Note CONVERSION, GENERIC - 10/29/2022 PERFORMED AT [facility] LOCATION:[id number] Normal Authorizing ProviderResult TypeResult StatusBralix Meyers MDENDOSCOPY PROCEDURE ORDERABLESFinal Result from Last 3 Months or Most Recently Relevant to [place] [address] Care Teams Team MemberRelationshipSpecialtyStart DateEnd Date Niesha Meyers MD [address] [place] [address] PCP - GeneralFamily Medicine11/18/22
--- OUTSIDE RECORDS SUMMARY | 2025-04-11 09:30 | XMS_ITS | Patient Health Record ---
Author Organization [facility] Address [address] [place] [address] Care Team Providers Care Gin Clerk Name Role Phone Eunice Bright Primary Care Provider [phone] Dr. Medhat Flores Unavailable [phone] Checo Grayson Unavailable [phone] Yuliana English Unavailable [phone] Celina Person Unavailable [phone] Martha Rider Unavailable [phone] Radha Hill Unavailable [phone] Allergies No Known Allergies Reason For Referral No Information Medications Medication SIG (Take, Route, Frequency, Duration) Notes Start Date End Date Status Baclofen 10 MG Tablet TAKE 1/2 (ONE-HALF ) TO 1 (ONE) TABLET BY MOUTH THREE TIMES DAILY NEEDED FOR MUSCLE SPASMS Oral; Duration: 30 Days ActiveDiclofenac 35 MG Capsule1 capsule as needed Orally Three times a day Not-Taking/PRNlamoTRIgine 200 MG TabletTAKE 1 TABLET BY MOUTH DAILY Orally daily; Duration: 30 daysActiveGabapentin 300 MG Capsule1 capsule Orally Once a dayNot-Taking/PRNtiZANidine HCl 4 MG Tablet1 tablet as needed Orally Three times a dayNot-Taking/PRNCyclobenzaprine HCl 10 MG Tablet1 tablet at bedtime as needed Orally three times a day (tid) as needed (prn)Not-Taking/PRNDiclofenac Potassium 50 MG Tablet1 tablet with food or milk as needed Orally Twice a dayActive QUEtiapine Fumarate 400 MG TabletTAKE 1 TABLET BY MOUTH DAILY AT BEDTIME Orally daily; Duration: 30 daysActivebuPROPion HCl 100 MG Tablet1 tablet Orally daily in AM; Duration: 30 daysActive Social History Tobacco Use: Social History Observation Description Date Details (start date - stop date) Current Smoker NA - NA Social History GeneralSocial InfoQuestionAnswerNotesTransition of Care:Specialist seen since last office visit?Yes, report on file11/13/[address] Roper abuse/mental health issues of patient/familyPatient -Illegal Drug Useuses cannabisAlcohol Screening:Did you have a drink containing alcohol in the past year?Yes? How often did you have a drink containing alcohol in the past year?Two to four times a month (2 points)? How many drinks did you have on a typical day when you were drinking in the past year?3 or 4 (1 point)? How often did you have six or more drinks on one occasion in the past year?Less than monthly (1 point) Yhrhiy2RrqwbseccnqntfUomrllqtEmxesye Use:Social InfoQuestionAnswerNotesTobacco Control (Standard)Tobacco use:Current smoker? How often do you smoke cigarettes? Every day? How many cigarettes a day do you smoke?5 or less Problems Problem Type SNOMED Code ICD Code Onset Dates Problem Status W/U Status Risk Notes Problem Bipolar affective di sorder, currently manic, moderate (227504758) Bipolar 1 disorder with moderate earline (F31.12) Activeconfirmed Vital Signs Heart Rate 86 /min 02/22/2025 Hfzbqvqemru08.8 degrees Hecuisoudo06/12/8109Wtknyzdd06 %02/22/2025lood pressure ucabzhqhn78 mm Hg02/22/20253348Kdltfp42 in02/22/2025lood pressure fyuslmvz993 mm Hg 02/22/20252692Zkscaa077.0 lbs02/22/2025BMI27.38 kg/m202/22/2025 Encounters Encounter Location Date Provider Diagnosis [facility] [address] [place] [address] 08/30/2024 Checo Grayson Bipolar 1 disorder with moderate earline F31.12 [facility] [address] [place] [address] 03/29/2025 Eunice Bright Bipolar 1 disorder with moderate earline F31.12 [facility] [address] [place] [address] 05/06/2024 Medhat Richzk Dental caries on pit and fissure surface penetrating into dentin K02.52 ; Necrosis of pulp K04.1 ; Encounter for dental examination and cleaning with abnormal findings Z01.21 ; Other dental procedure status Z98.818 and Disturbances in tooth eruption K00.6 [facility] [address] [place] [address] 05/09/2024 Celina Person Acute gingivitis, plaque induced K05.00 [facility] [address] [place] [address] 04/05/2025 Yuliana English Acute gingivitis, plaque induced K05.00 ; Other dental procedure status Z98.818 ; Encounter for dental examination and cleaning with abnormal findings Z01.21 and Dental caries on pit and fissure surface penetrating into dentin K02.52 [facility] [address] [place] [address] 09/27/2024 [facility] [place] [address]/31/2025 [place] [address] [place] [address]/03/2025 Eunice NeubergerBipolar 1 disorder with moderate earline F31.12[facility] [place] [address]/05/2025Kip SoviakBipolar 1 disorder with moderate earline F31.12 Assessments Encounter Date Diagnosis (ICD Code) Assessment Notes Treatment Notes Treatment Clinical Notes Section Notes 05/06/2024 Dental caries on pit and fissure surface penetrating into dentin (ICD-10 - K02.52) 05/09/2024cute gingivitis, plaque induced (ICD-10 - K05.00)5Bipolar 1 disorder with moderate earline (ICD-10 - [...] tremors, muscle spasms, slowness of movement or jerkingof muscles. . Stable . The patient verbalizes [...] consented to the start/continuation of the treatment. 08/30/2024ipolar 1 disorder with moderate earline (ICD-10 - F31.12)02/22/2025 Bipolar 1 disorder with moderate earline (ICD-10 - F31.12)03/29/2025ipolar 1 disorder with moderate earline (ICD-10 - F31.12)04/05/2025ute gingivitis, plaque induced (ICD-10 - K05.00)04/05/2025Other dental procedure status (ICD-10 - Z98.818)05/06/2024Necrosis of pulp (ICD-10 - K04.1)05/06/2024Encounter for dental examination and cleaning with abnormal findings (ICD-10 - Z01.21) 04/05/2025Encounter for dental examination and cleaning with abnormal findings (ICD-10 - Z01.21)05/06/2024Other dental procedure status (ICD-10 - Z98.818) 04/05/2025Dental caries on pit and fissure surface penetrating into dentin (ICD- 10 - K02.52)4Disturbances in tooth eruption (ICD-10 - K00.6) Plan Of Treatment Next Appt Details Provider Name:Martha Rider, 07/27/2025 02:00:00 PM, [address], [place], [address], Provider Name:Martha Rider, 08/03/2025 01:00:00 PM, [address], [place], [address], Provider Name:Eunice Poonam harper, 08/22/2025 11:45:00 AM, [address], [place], [address], Provider Name:Yuliana English , 10/23/2025 09:30:00 AM, [address], [place], [address], Insurance Providers Payer Name Payer Address Payer Phone Subscriber Number Group Number Insured Name Patient Relationship to Insured Coverage Start Date Coverage End Date [employer] MEDICARE ADVANTAGE [address] [place] [address] [id number] STEVE POWELL Self - patient is the insured 3 AETNA[address] [place] [id number] Gavin BUTLER - patient is the tincuma37/2[employer] CLAIMS [address] [address] [place] [id number], PAUL Self - patient is the uxcnfeo38/2[employer]NA [facility] [address] [place] [id number], PAULSelf - patient is the /2DENTAL AETNA MEDICAREPO [address] [place] [id number], PAULSelf - patient is the ifrteso80ENTAL AETNA MEDICAREPO [address] [address] [place] [id number], PAULSelf - patient is the [id number] 2022 Medical (General) History Medical History History ICD Code back injury bipolarSurgical History Surgery Date(Month/Year) hernia tonsillectomyablation-11/02
--- OUTSIDE RECORDS SUMMARY | 2025-04-11 09:30 | XMS_ITS | Clinical Summary ---
Author Organization [facility] Address [address] [place] [address] Care Team Providers Care Hardwood Flooring Specialist Name Role Phone Wayne Meyers MD Primary Care Provider [phone] Allergies No known active allergies Medications MedicationSigDispense QuantityRefillsLast FilledStart DateEnd DateStatus DULoxetine (CYMBALTA) 30 mg capsule Take one capsule at bedtime x one week, then increase to two capsules daily as tolerated 60 capsule Active Additional Information Patient taking differently: 30 mg ORAL DAILY, Take one capsule at bedtime x one week, then increase to two capsules daily as tolerated, Reason:Changing Therapy/Dosage Form, Reported on 03/12/2020 meloxicam (MOBIC) 7.5 mg tablet Take 1 tablet by mouth twice daily with meals. 60 tablet Active DULoxetine (CYMBALTA) 60 mg capsule Take 1 capsule by mouth once daily. 90 capsule Active gabapentin (NEURONTIN) 300 mg capsule Take 1 capsule by mouth three times daily for 31 days. 90 capsule 1Active Active Problems ProblemNoted DateDiagnosed DateSpinal stenosis of lumbar region without neurogenic wynpkfxtievt27/20/2020 Social History Tobacco UseTypesPacks/DayYears UsedDateSmoking Tobacco: FormerSmokeless Tobacco: FormerPHQ-2AnswerDate RecordedPHQ-2 phzme37306/15/2018Area Deprivation IndexAnswer Date RecordedNational Score (1-100), lower number is lower riskNot on file 05/19/2020State Score (1-10), lower number is lower riskNot on file05/19/2020 Data from: https://www.neighborhoodatlas.medicine.[facility].edu/. Last address used for calculationNot on file05/19/2020Sex and Gender InformationValueDate Recorded Sex Assigned at BirthNot on fileLegal YcdIfod80/29/2019 1:28 PM EDTGender IdentityNot on fileSexual OrientationNot on file Last Filed Vital Signs Vital SignReadingTime TakenCommentsBlood Mplwgsos997/6512 12:19 PM EST Onqdc770805/21/2020 12:19 PM FYCQlxgvzoyxsk19.4 ??C (97.5 ??F)04/03/2020 10:41 AM EDTRespiratory Nadd5816 11:11 AM EDTOxygen Pmidmtvaju70%04/03/2020 11:11 AM EDTInhaled Oxygen Concentration--Dcwrop084.1 kg (245 lb)05/21/2020 12:19 PM XSZZxyvkd693 cm (6' 4 )03/12/2020 11:11 AM EDTBody Mass Index29.8203/12/2020 11:11 AM EDT Plan of Treatment Health MaintenanceDue DateLast DoneCommentsAnxiety Vrjsciwgv13/30/1982Depression Vyryrazhd60/30/1982HIV Fntuqsimh32/30/1982Hepatitis C Uhrgkmfhb82/30/1982 DTaP,Tdap,Td Vaccine (1 - Tdap)12/12/1982Lipid Urvrklxoh97/30/1999CT Kztkwxwecmum47/30/2009Cologuard (FIT-DNA)12/12/20081476Soiwnfwltwm99/30/2009 Colorectal Cancer Schuuyviw19/30/2009Diabetes Bjbedasgt44/30/2009Fecal Occult Blood12/12/2008Prostate Cancer Screening Oufmbtwtvb45/30/2009Sigmoidoscopy 12/12/2008Pneumococcal Vaccine: 50+ (1 of 1 - PCV)12/12/2013Shingrix Vaccine (1 of 2)12/12/2013Covid-19 Vaccine (1 - 2024- season)2025Influenza Vaccine (#1)51, 03/25/2020, 02/24/2019RSV Vaccine (1 - 1-dose 75+ series)12/12/2038 Insurance Care Teams Team MemberRelationshipSpecialtyStart DateEnd Date Wayne Meyers MD [address] [place] [address] PCP - GeneralFamily Ncoxyoos43/29/19
--- NOTE | 2025-04-11 09:32 | MR_ITS ---
[address] [address] Patient Name: STEVE BUTLER MRN: [id number] date: 1965 Sex: M Assigned Patient Location: MRI Current Patient Location: MRI Accession/Order Number: [id number] Exam Date: 04/11/2025 09:47 Report Date: 04/11/2025 17:55 At the request of: HUA SINGER NP Procedure: MR lumbar spine wo con MRI lumbar spine performed without contrast INDICATION: Lumbar stenosis with neurogenic claudication lumbar pain radiating to the right leg COMPARISON: Lumbar spine x-rays 01/19/2025 FINDINGS: Lumbar vertebral heights are maintained. Anterolisthesis L4 on L5 is identified measuring 6 mm. Mild disc space narrowing L3-S1. Multilevel facet arthropathy. Conus medullaris service normally at the superior plate of L2. Multilevel Schmorl's node deformities greatest L2-L3. Involving the superior plate of L3, there are Modic type II endplate changes corresponding to the Schmorl's node/superior plate depression.. T12-L1: Only visualized sagittal images. Minimal disc desiccation with inferior plate Schmorl's node at T12. Canal and neural foramina patent. L1-L2: Schmorl's node deformities. Tiny left central protrusion extending cranially. Facet arthropathy. Minor central canal narrowing. Mild neural from narrowing. L2-3: Broad-based disc bulge with moderate facet arthropathy. Gwjb-nx-xtcbcrxh central canal stenosis and mild neural foraminal narrowing. L3-4: Circumferential disc bulge with facet arthropathy. Endplate osteophytosis extending to both foraminal zones causing ziht-wm-zzymgprg right-sided and moderate left-sided neural foraminal narrowing. There is drth-at-uvdvnxim central stenosis and moderate bilateral subarticular recess narrowing. L4-5: Circumferential disc bulge and uncovering the posterior disc due to the anterolisthesis. Bilateral facet arthropathy, severe. There is a 7 mm synovial cyst on the left extending to the canal is dorsal to the L5 vertebral body causing severe effacement There is moderate canal and moderate severe right and severe left subarticular recess narrowing and encroachment upon the L5 nerve roots. Findings appear most pronounced in left. Otherwise moderate severe left greater than right neural foraminal narrowing. L5-S1: Circumferential disc bulge with left central protrusion. There is evidence of moderate facet arthropathy. Moderate left greater than right neural foraminal narrowing. Moderate neural from narrowing. MR/MR lumbar spine wo con IMPRESSION: Multilevel degenerative changes greatest L4-5 with subarticular recess narrowing predominantly left due to the facet arthropathy and anterolisthesis. There are severe encroachment upon the left L5 nerve root due to degenerative changes and a superimposed synovial cyst. There are degenerative changes elsewhere as detailed above. Impression dictated by: Wayne Odom M.D. 04/11/2025 5:55 PM Dictation Location: [place] [address] Electronically authenticated by: [id number] Y Date: 04/11/2025 17:55
== END 2025-04-11 09:28 | disposition home or self-care (01) ==
LOC: MRI 09:27
PROVIDERS: PCP Family Medicine; Visit Provider Nurse Practitioner
DX: M48.062 Spinal stenosis, lumbar region with neurogenic claudication (principal); M51.369 Other intervertebral disc degeneration, lumbar region without mention of lumbar back pain or lower extremity pain
CPT/HCPCS: 72148

== ENCOUNTER 2025-04-20 13:44 | Outpatient (OUT) | payer MEDICARE, SELFPAY ==
--- OUTSIDE RECORDS SUMMARY | 2024-07-20 08:10 | XMS_ITS ---
Author Organization [facility] Address [address] [place] [address] Care Team Providers Care Pattern Carrier Name Role Phone Eunice Bright Primary Care Provider Dr. Medhat Flores [phone] REASON FOR VISIT FILLING Encounters Encounter Location Date Provider Diagnosis [facility] [address] [place] [address] 07/20/2024 Medhat Flores Plan Of Treatment Next Appt Details Provider Name:Martha Rider, 07/27/2025 02:00:00 PM, [address] [place], [address], Provider Name:Martha Rider, 08/03/2025 01:00:00 PM, [address], [place], [address], Provider Name:Eunice harper, 08/22/2025 11:45:00 AM, [address] , [place], [address], Provider Name:Yuliana English , 10/23/2025 09:30:00 AM, [facility] [place], [address], Progress Notes * STEVE BUTLERDOB: [birth year] (59 yo M)Acc No.[id number]:07/20/2024 Patient:?STEVE BUTLER :?Medhat Flores DDSDOB:1965???Age:58 Y???Sex: MaleDate:07/20/2024Phone:[phone]:[address] [place], [id number]:Eunice Bright Subjective: * Chief Complaints: * F ILLING * Electronic signature of Dr. Medhat Flores , [facility], [id number] on 04/20/2025 at 01:49 PM ESTSign off status: Pending * Provider: Rosalinda Flores DDS Date: 0 07/20/2024 Generated for Printing/Faxing/eTransmitting on:?04/20/2025 01:49 PM EST
--- OUTSIDE RECORDS SUMMARY | 2024-11-09 08:00 | XMS_ITS ---
Author Organization [facility] Address [address] [place] [address] Care Team Providers Care Locks Inspector Name Role Phone Eunice Bright Primary Care Provider Celina Person [phone] REASON FOR VISIT 6 MONTH Encounters Encounter Location Date Provider Diagnosis [facility] [address] [place] [address] 11/09/2024 Celina Person Plan Of Treatment Next Appt Details Provider Name:Martha Rider, 07/27/2025 02:00:00 PM, [address], [place], [address], Provider Name:Martha Rider, 08/03/2025 01:00:00 PM, [address], [place], [address], Provider Name:Eunice harper, 08/22/2025 11:45:00 AM, [address], [place], [address], Provider Name:Yuliana English , 10/23/2025 09:30:00 AM, [address] [place], [address], Progress Notes * STEVE BUTLERDOB: [birth year] (59 yo M)Acc No.[id number]:11/09/2024 Patient:?STEVE BUTLER :?Celina PersonDOB:1965???Age:58 Y???Sex: MaleDate:11/09/2024Phone:[phone]:[address] [place], [id number]:Eunice Bright Subjective: * Chief Complaints: * 6 MONTH * Electronic signature of Celina Person on 04/20/2025 at 01:50 PM ESTSign off status: Pending * Provider: Laith Person Date: 0 11/09/2024 Generated for Printing/Faxing/eTransmitting on:?04/20/2025 01:50 PM EST
--- OUTSIDE RECORDS SUMMARY | 2025-01-18 09:05 | XMS_ITS ---
Author Organization [facility] Address [address] [place] [address] Care Team Providers Care Locomotive Mechanic Name Role Phone Eunice Bright Primary Care Provider Martha Rider [phone] REASON FOR VISIT FILLING Encounters Encounter Location Date Provider Diagnosis [facility] [address] [place] [address] 01/18/2025 Martha Rider Plan Of Treatment Next Appt Details Provider Name:Martha Rider, 07/27/2025 02:00:00 PM, [address], [place], [address], Provider Name:Martha Rider, 08/03/2025 01:00:00 PM, [address], [place], [address], Provider Name:Eunice harper, 08/22/2025 11:45:00 AM, [address] , [place], [address], Provider Name:Yuliana English , 10/23/2025 09:30:00 AM, [facility] [place], [address], Progress Notes * STEVE BUTLERDOB: [birth year] (59 yo M)Acc No.[id number]:01/18/2025 Patient:?STEVE BUTLER :?Martha RiderDOB:1965???Age:59 Y???Sex:Male Date:01/18/2025Phone:[phone]:[address], [id number] Pcp:Eunice Bright Subjective: * Chief Complaints: * F ILLING * Electronic signature of Martha Rider DMD on 04/20/2025 at 01:49 PM ESTSign off status: Pending * Provider: Rosalinda Rider Date: 0 01/18/2025 Generated for Printing/Faxing/eTransmitting on:?04/20/2025 01:49 PM EST
--- OUTSIDE RECORDS SUMMARY | 2025-02-22 06:15 | XMS_ITS ---
Author Organization [facility] Address [address] [place] [address] Care Team Providers Care Coach Wirer Name Role Phone Eunice Bright Primary Care Provider REASON FOR VISIT Pt is a 59 year old male, YOBANI from [facility], 6 month f/u, Pt states he is doing pretty good, no concerns, LM Medications Medication SIG (Take, Route, Frequency, Duration) Notes Start Date End Date Status Gabapentin 300 MG Capsule 1 capsule Orally Once a day Not-Taking/PRNtiZANidine HCl 4 MG Tablet1 tablet as needed Orally Three times a dayNot-Taking/PRNCyclobenzaprine HCl 10 MG Tablet1 tablet at bedtime as needed Orally three times a day (tid) as needed (prn)Not-Taking/PRNbuPROPion HCl 100 MG Tablet1 tablet Orally daily in AM; Duration: 30 daysActiveQUEtiapine Fumarate 400 MG TabletTAKE 1 TABLET BY MOUTH DAILY AT BEDTIME Orally daily; Duration: 30 daysActiveDiclofenac 35 MG Capsule1 capsule as needed Orally Three times a day Not-Taking/PRNBaclofen 10 MG TabletTAKE 1/2 (ONE-HALF) TO 1 (ONE) TABLET BY MOUTH THREE TIMES DAILY NEEDED FOR MUSCLE SPASMS Oral; Duration: 30 Days ActivelamoTRIgine 200 MG TabletTAKE 1 TABLET BY MOUTH DAILY Orally daily; Duration: 30 daysActiveDiclofenac Potassium 50 MG Tablet1 tablet with food or milk as needed Orally Twice a dayActive Vital Signs Blood pressure systolic 146 mm Hg 02/23/20 25 Blood pressure diastolic 93 mm Hg 025 Heart Rate 86 /min 02/22/2025 Height 76 in 02/22/2025 Weight 225.0 lbs 02/22/2025 BMI 27.38 kg/m2 02/22/2025 Oximetry 99 % 02/22/2025 Encounters Encounter Location Date Provider Diagnosis [facility] [address] [place] [address] 02/22/2025 Eunice Bright Bipolar 1 disorder with moderate earline F31.12 Assessments Encounter Date Diagnosis (ICD Code) Assessment Notes Treatment Notes Treatment Clinical Notes Section Notes 02/22/2025 Bipolar 1 disorder with moderate earline (ICD-10 - F31.12) Plan Of Treatment Medication Medication Name Sig Start Date Stop Date Notes buPROPion HCl 100 MG Tablet 1 tablet Orally ciaran y in AM; Duration: 30 days QUEtiapine Fumarate 400 MG TabletTAKE 1 TABLET BY MOUTH DAILY AT BEDTIME Orally daily; Duration: 30 dayslamoTRIgine 200 MG TabletTAKE 1 TABLET BY MOUTH DAILY Orally daily; Duration: 30 daysNext Appt Details Provider Name:Martha Rider, 07/27/2025 02:00:00 PM, [facility] [address], [place], [address], Provider Name:Martha Rider, 08/03/2025 01:00:00 PM, [address], [place], [address], Provider Name:Eunice harper, 08/22/2025 11:45:00 AM, [address] [place] [address], [address], Provider Name:Yuliana English , 10/23/2025 09:30:00 AM, [address], [place], [address], History and Physical Notes * Examination CategorySub-CategoryDetailNotesCategory NotesGeneral Examination . MENTAL STATUS EXAM: . Appearance: Appropriately dressed and groomed, good eye contact, cooperative, pleasant Behavior/Motor Activity: Normal Gait/Station: Within normal limits BH Speech: Normal Mood: Good Affect: Full Thought processes/Associations: Logical and goal directed Thought Content: Non-psychotic Cognition/Attention/Memory/Concentration: Alert and oriented x 4; grossly intact attention; memory-recent/remote judged adequate by interviewer Insight: Good Judgement: Good BH language: Within normal limits Fund of Knowledge: Adequate . . AIMS EXAM: . AIMS Muscles of Facial Expression: None AIMS Lips and Perioral Area: None AIMS Jaw Area Involuntary Movements: None AIMS Tongue Involuntary Movements: None AIMS Upper Arms, Wrists, Hands, Fingers: None AIMS Lower Legs, Knees, Ankles, Toes: None AIMS Overall Abnormal Movement Severity: None AIMS Incapacitation Abnormal Movement: None AIMS Self Awareness of Abnormal Movement: Aware, None noted AIMS Current Teeth, Denture Problems: No AIMS Movements Disappear in Sleep: No . Progress Notes * STEVE BUTLER RosalindaDOB: [birth year] (59 yo M)Acc No.[id number]:02/22/2025 Behavioral Health Patient: STEVE ALFONSO :?Eunice BrightDOB:1965???Age:59 Y???Sex: MaleDate:02/22/2025Phone:[phone]:[address] [place], [place] [id number] Subjective: * Chief Complaints: * P t is a 59 year old male, YOBANI from [facility], 6 month f/uPt states he is doing pretty good, no concernsLM * HPI: ???Constitutional:? Pt is being seen today for follow up via in-office visit. ThisPt is tolerating meds well and taking medications daily. . Pt states he is doing good concerns.? . Pt denies mood fluctuation. Energy and motivation are stable. Depressive symptoms are not persistent. Denies episodes of having sadness, anhedonia, isolating behaviors, or crying spells. Anxiety controlled. Concentration intact without distractibility. . Sleeping through the night and feels rested upon waking up. Denies Nightmares. Appetite is good. . Denies Euphoria. Pervasive irritability is controlled today. Meaningful relationships intact. Denies increased goal-oriented behavior or increase in purposeless activity. Pt is on SSI d/t back injury.? . Denies suicidal or homicidal ideation or plan. No morbid thoughts. Interpersonal issues discussed. Support provided. Insight oriented/ Behavior modifying/ Supportive therapy. . * ROS: ???CONSTITUTIONAL: No fever, chills, sweats, weakness SKIN: No jaundice, rash, lesions, petechiae GASTROINTESTINAL: No nausea, vomiting, diarrhea, or GI bleeding MUSCULOSKELETAL: No muscle pain or weakness NEUROLOGIC: No headache, dizziness, numbness, or weakness . * Medications: T akingDiclofenac Potassium 50 MG Tablet 1 tablet with food or milk as needed Orally Twice a day lamoTRIgine 200 MG Tablet TAKE 1 TABLET BY MOUTH DAILY Orally daily QUEtiapine Fumarate 400 MG Tablet TAKE 1 TABLET BY MOUTH DAILY AT BEDTIME Orally daily buPROPion HCl 100 MG Tablet 1 tablet Orally daily in AM Baclofen 10 MG Tablet TAKE 1/2 (ONE-HALF) TO 1 (ONE) TABLET BY MOUTH THREE TIMES DAILY NEEDED FOR MUSCLE SPASMS Oral Taking Diclofenac Potassium 50 MG Tablet 1 tablet with food or milk as needed Orally Twice a day Taking lamoTRIgine 200 MG Tablet TAKE 1 TABLET BY MOUTH DAILY Orally daily Taking QUEtiapine Fumarate 400 MG Tablet TAKE 1 TABLET BY MOUTH DAILY AT BEDTIME Orally daily Taking buPROPion HCl 100 MG Tablet 1 tablet Orally daily in AM Taking Baclofen 10 MG Tablet TAKE 1/2 (ONE-HALF) TO 1 (ONE) TABLET BY MOUTH THREE TIMES DAILY NEEDED FOR MUSCLE SPASMS Oral Not- Taking/PRNDiclofenac 35 MG Capsule 1 capsule as needed Orally Three times a day Cyclobenzaprine HCl 10 MG Tablet 1 tablet at bedtime as needed Orally three times a day (tid) as needed (prn) tiZANidine HCl 4 MG Tablet 1 tablet as needed Orally Three times a day Gabapentin 300 MG Capsule 1 capsule Orally Once a day Medication List reviewed and reconciled with the patientNot-Taking/PRN Diclofenac 35 MG Capsule 1 capsule as needed Orally Three times a day Not-Taking/PRN Cyclobenzaprine HCl 10 MG Tablet 1 tablet at bedtime as needed Orally three times a day (tid) as needed (prn) Not-Taking/PRN tiZANidine HCl 4 MG Tablet 1 tablet as needed Orally Three times a day Not-Taking/PRN Gabapentin 300 MG Capsule 1 capsule Orally Once a day Medication List reviewed and reconciled with the patient Objective: * Vitals: H t: 76 in, Wt: 225.0 lbs, BMI:27.38Index, BP: 146/93 mm Hg, SaO2:99%, HR: 86 /min. * Examination: ???General Examination: ???. MENTAL STATUS EXAM: . Appearance: Appropriately dressed and groomed, good eye contact, cooperative, pleasant Behavior/Motor Activity: Normal Gait/Station: Within normal limits Speech: Normal Mood: Good Affect: Full Thought processes/Associations: Logical and goal directed Thought Content: Non-psychotic Cognition/Attention/Memory/Concentration: Alert and oriented x 4; grossly intact attention; memory-recent/remote judged adequate by interviewer Insight: Good Judgement: Good BH language: Within normal limits Fund of Knowledge: Adequate . . AIMS EXAM: . AIMS Muscles of Facial Expression: None AIMS Lips and Perioral Area: None AIMS Jaw Area Involuntary Movements: None AIMS Tongue Involuntary Movements: None AIMS Upper Arms, Wrists, Hands, Fingers: None AIMS Lower Legs, Knees, Ankles, Toes: None AIMS Overall Abnormal Movement Severity: None AIMS Incapacitation Abnormal Movement: None AIMS Self Awareness of Abnormal Movement: Aware, None noted AIMS Current Teeth, Denture Problems: No AIMS Movements Disappear in Sleep: No . . Assessment: * Assessment: 1.?Bipolar 1 disorder with moderate earline - F31.12 (Primary)??? Plan: * Treatment: Refill lamoTRIgine Tablet, 200 MG, TAKE 1 TABLET BY MOUTH DAILY, Orally, daily, 30 days, 30, Refills 5;?Refill QUEtiapine Fumarate Tablet, 400 MG, TAKE 1 TABLET BY MOUTH DAILY AT BEDTIME, Orally, daily, 30 days, 30, Refills 5;?Refill buPROPion HCl Tablet, 100 MG, 1 tablet, Orally, daily in AM, 30 days, 30, Refills 5.?? Billing Information: * Procedure Codes: * Electronic signature of REINA Jeffers on 04/20/2025 at 01:49 PM EST Sign off status: Pending * Provider: Poonam Bright Date: 0 02/22/2025 Generated for Printing/Faxing/eTransmitting on:?04/20/2025 01:49 PM EST
--- OUTSIDE RECORDS SUMMARY | 2025-03-23 05:30 | XMS_ITS ---
Author Organization [facility] Address [address] [place] [address] Care Team Providers Care Airport Sales Agent Name Role Phone Eunice Bright Primary Care Provider [phone] Radha Hill [phone] REASON FOR VISIT FILLING Encounters Encounter Location Date Provider Diagnosis [facility] [address] [place] [address] 03/23/2025 Radha Hill Plan Of Treatment Next Appt Details Provider Name:Martha Rider, 07/27/2025 02:00:00 PM, [address], [place], [address], Provider Name:Martha Rider, 08/03/2025 01:00:00 PM, [address], [place], [address], Provider Name:Eunice harper, 08/22/2025 11:45:00 AM, [address], [place], [address], Provider Name:Yuliana English , 10/23/2025 09:30:00 AM, [address] [place], [address], Progress Notes * STEVE BUTLERDOB: [birth year] (59 yo M)Acc No.[id number]:03/23/2025 Patient:?STEVE BUTLER :?Radha HillDOB:1965???Age:59 Y???Sex:MaleDate: 03/23/2025Phone:[phone]:[address] [place], [id number]: Eunice Bright Subjective: * Chief Complaints: * F ILLING * Electronic signature of Radha Hill , [id number] on 04/20/2025 at 01:49 PM ESTSign off status: Pending * Provider: Luz Hill Date: Generated for Printing/Faxing/eTransmitting on:?04/20/2025 01:49 PM EST
--- OUTSIDE RECORDS SUMMARY | 2025-04-20 13:49 | XMS_ITS | Encounter Summary ---
Author Organization [facility] Address [address] [facility] [place] [address] Care Team Providers Care Department Chairperson Name Role Phone Niesha Meyers MD Primary Care Provider [phone] Encounter Details DateTypeDepartmentCare Team (Latest Contact Info)Yywvyexgoku13/28/2025Clinisync Result Encounter [facility] External Department Unsolicited Provider, Generic External Data Social History Tobacco UseTypesPacks/DayYears UsedDateSmoking Tobacco: Some [...] relatives?Twice a week04/21/2023How often do you attend hindu or anabaptism services?1 to 4 times per year04/21/2023o you belong to any clubs or organizations such as hindu groups, unions, fraternal or athletic tricia ups, or school groups?No04/21/2023How often do you attend meetings of the clubs or organizations you belong to?Never04/21/2023re you , , , , never , or living with a partner?Kqcvyqpod88/07/2023 AUDIT-CAnswerDate RecordedQ1: How often do you have [...] hard at all04/21/2023 PHQ-2AnswerDate RecordedPatient Health Questionnaire-2 B[facility]afj581[facility] [place] [facility] - Occupational Stress QuestionnaireAnswerDate RecordedDo you feel stress - tense, restless, nervous, or anxious, or unable to sleep at night because yourmind is troubled all the time - these days?Only a jvmtag9904/21/2023Exercise Vital SignAnswerDate RecordedOn average, how many days [...] steady place to sleep or slept in [facility] (including now)?No04/21/2023Sex and Gender InformationValueDate RecordedSex Assigned at BirthNot on fileLegal SrnThmu3608/27/2022 6:51 PM EDT Gender IdentityNot on fileSexual OrientationNot on filedocumented as of this encounter Plan of Treatment DateTypeDepartmentCare Team (Latest Contact Info)Fwxbhgvkayq42/27/2026 1:20 PM ESTOffice Visit [facility] [address] [place] [phone] Hayley Mcghee, COTTON CLASSER [address] [place] [phone] documented as of this encounter Procedures Procedure NamePriorityDate/TimeAssociated DiagnosisCommentsMR LUMBAR SPINE WO CON04/11/2025 5:55 PM EDT documented in this encounter Results * MR LUMBAR SPINE WO CON (04/11/2025 5:55 PM EDT)Anatomical RegionLaterality ModalityOtherSpecimen (Source)Anatomical Location / LateralityCollection Method / VolumeCollection TimeReceived Time04/11/2025 5:55 PM EDT Narrative 04/11/2025 5:[address] [facility] ?[address] ? [place] [address] ? Magnetic Resonance Report ? Signed ? Patient: LARRY BUTLER ?MR#: [id number] ?? : 1965 ?Acct:[id number] ?? Age/Sex: 59 / M ?ADM Date: 04/11/25 ?? Loc: MRI ? Attending Dr: Hua Singer COTTON CLASSER ? Ordering Physician: Hua Singer NP ?? Date of Service: 04/11/25 ?? Procedure(s): MR lumbar spine wo con ?? Accession Number(s): [id number] ? cc: NIESHA MEYERS ; Hua Singer COTTON CLASSER ? [facility] ? [address] ? [place] [address] ? Patient Name: ?? LARRY ??BUTLER ? MRN: [facility]:[id number] ? date: 1965 ?Sex: M ?? Assigned Patient Location: MRI ?? Current Patient Location: MRI ?? Accession/Order Number: [id number] ?? Exam Date: 04/11/2025 ??09:47 ?Report Date: 04/11/2025 ??17:55 ? At the request of: ?? HUA ??LUCRECIA ??COTTON CLASSER ? Procedure: ??MR lumbar spine wo con ? MRI lumbar spine performed without contrast ? INDICATION: Lumbar stenosis with neurogenic claudication lumbar pain radiating ?? to the right leg ? COMPARISON: Lumbar spine x-rays 01/19/2025 ? FINDINGS: Lumbar vertebral heights are maintained. ??Anterolisthesis L4 on L5 ?? is identified measuring 6 mm. ??Mild disc space narrowing L3-S1. ??Multilevel ?? facet arthropathy. ??Conus medullaris service normally at the superior plate of ?? L2. ??Multilevel Schmorl's node deformities greatest L2-L3. ??Involving the ?? superior plate of L3, there are Modic type II endplate changes corresponding ?? to the Schmorl's node/superior plate depression.. ? T12-L1: Only visualized sagittal images. ??Minimal disc desiccation with ?? inferior plate Schmorl's node at T12. ??Canal and neural foramina patent. ? L1-L2: Schmorl's node deformities. ??Tiny left central protrusion extending ?? cranially. ??Facet arthropathy. ??Minor central canal narrowing. ??Mild neural ?? from narrowing. ? L2-3: Broad-based disc bulge with moderate facet arthropathy. ? Evac-je-agdzyiav central canal stenosis and mild neural foraminal narrowing. ? L3-4: Circumferential disc bulge with facet arthropathy. ??Endplate ?? osteophytosis extending to both foraminal zones causing swrf-ab-tlncoxnt ?? right-sided and moderate left-sided neural foraminal narrowing. ??There is ?? dhif-gk-toztrvmy central stenosis and moderate bilateral subarticular recess ?? narrowing. ? L4-5: Circumferential disc bulge and uncovering the posterior disc due to the ?? anterolisthesis. ??Bilateral facet arthropathy, severe. ??There is a 7 mm ?? synovial cyst on the left extending to the canal is dorsal to the L5 vertebral ?? body causing severe effacement There is moderate canal and moderate severe ?? right and severe left subarticular recess narrowing and encroachment upon the ?? L5 nerve roots. ??Findings appear most pronounced in left. ??Otherwise moderate ?? severe left greater than right neural foraminal narrowing. ? L5-S1: Circumferential disc bulge with left central protrusion. ??There is ?? evidence of moderate facet arthropathy. ??Moderate left greater than right ?? neural foraminal narrowing. ??Moderate neural from narrowing. ? MR/MR lumbar spine wo con ?? IMPRESSION: Multilevel degenerative changes greatest L4-5 with subarticular ?? recess narrowing predominantly left due to the facet arthropathy and ?? anterolisthesis. ??There are severe encroachment upon the left L5 nerve root ?? due to degenerative changes and a superimposed synovial cyst. ??There are ?? degenerative changes elsewhere as detailed above. ? Impression dictated by: Wayne Odom M.D. ??04/11/2025 5:55 PM ? Dictation Location: [place] [address] ? Electronically authenticated by: [id number] ??Y ?? Date: 04/11/2025 ??17:55 ? Dictated By: ?Wayne Odom M.D. ? Signed By: ?04/11/25 1758 ? DD/ 175 ? TD/TT: ? [employer]: Procedure Note Radiology, Radiologist, MD - 04/11/2025 [place] [address] Magnetic Resonance Report Signed Patient: SUSIE BUTLER#: [id number] : 1965Acct:[id number] Age/Sex: 59 / MADM Date: 04/11/25 Loc: MRI Attending Dr: Hua Singer C[employer] CLASSER Ordering Physician: Hua Singer NP Date of Service: 04/11/25 Procedure(s): MR lumbar spine wo con Accession Number(s): [id number] cc: NIESHA MEYERS ; Hua Singer NP [facility] [place] [id number] Patient Name: LARRY BUTLER MRN: [id number] date: 1965 Sex: M Assigned Patient Location: MRI Current Patient Location: MRI Accession/Order Number: [id number] Exam Date: 04/11/2025 09:47 Report Date: 04/11/2025 17:55 At the request of: HUA SINGER NP Procedure: MR lumbar spine wo con MRI lumbar spine performed without contrast INDICATION: Lumbar stenosis with neurogenic claudication lumbar painradiating to the right leg COMPARISON: Lumbar spine x-rays 01/19/2025 FINDINGS: Lumbar vertebral heights are maintained. Anterolisthesis L4 onL5 is identified measuring 6 mm. Mild disc space narrowing L3-S1.Multilevel facet arthropathy. Conus medullaris service normally at the superiorplate of L2. Multilevel Schmorl's node deformities greatest L2-L3. Involving the superior plate of L3, there are Modic type II endplate changescorresponding to the Schmorl's node/superior plate depression.. T12-L1: Only visualized sagittal images. Minimal disc desiccation with inferior plate Schmorl's node at T12. Canal and neural foramina patent. L1-L2: Schmorl's node deformities. Tiny left central protrusion extending cranially. Facet arthropathy. Minor central canal narrowing. Mildneural from narrowing. L2-3: Broad-based disc bulge with moderate facet arthropathy. Hvyf-yv-iwxqdpug central canal stenosis and mild neural foraminalnarrowing. L3-4: Circumferential disc bulge with facet arthropathy. Endplate osteophytosis extending to both foraminal zones causing vnlj-pe-vxmgdvkt right-sided and moderate left-sided neural foraminal narrowing. There is vjuh-vs-ghwwhupv central stenosis and moderate bilateral subarticularrecess narrowing. L4-5: Circumferential disc bulge and uncovering the posterior disc due tothe anterolisthesis. Bilateral facet arthropathy, severe. There is a 7 mm synovial cyst on the left extending to the canal is dorsal to the E1ukinoeyjl body causing severe effacement There is moderate canal and moderate severe right and severe left subarticular recess narrowing and encroachment uponthe L5 nerve roots. Findings appear most pronounced in left. Otherwisemoderate severe left greater than right neural foraminal narrowing. L5-S1: Circumferential disc bulge with left central protrusion. There is evidence of moderate facet arthropathy. Moderate left greater than right neural foraminal narrowing. Moderate neural from narrowing. MR/MR lumbar spine wo con IMPRESSION: Multilevel degenerative changes greatest L4-5 withsubarticular recess narrowing predominantly left due to the facet arthropathy and anterolisthesis. There are severe encroachment upon the left L5 nerveroot due to degenerative changes and a superimposed synovial cyst. There are degenerative changes elsewhere as detailed above. Impression dictated by: Wayne Odom M.D. 04/11/2025 5:55 PM Dictation Location: [place] [address] Electronically authenticated by: [id number] Y Date: 7:55 Dictated By: Wayne Odom M.D. Signed By:04/11/251757 DD/ 54 TD/TT: [employer]: Authorizing ProviderResult TypeResult StatusGeneric External Data Provider [facility] IMAGINGFinal Result documented in this encounter Visit Diagnoses Not on filedocumented in this encounter Additional Health Concerns AssessmentNoted TimePHQ-9 Depression Total Score: 1:54 PM EST documented as of this encounter Care Teams Team MemberRelationshipSpecialtyStart DateEnd Date Niesha Meyers MD [address] [place] [address] PCP - GeneralFamily Medicine11/18/22documented as of this encounter
--- OUTSIDE RECORDS SUMMARY | 2025-04-20 13:49 | XMS_ITS | Clinical Summary ---
Author Organization [facility] Healthcare Address [address] [place] [address] Care Team Providers Care Powertrain Engineer Name Role Phone Niesha Meyers MD Primary Care Provider [phone] Hayley Mcghee TRUCK TRAILER FINAL INSPECTOR Unavailable [phone] Allergies No known active allergies Medications MedicationSigDispense [...] not crush, chew, or split.. 180 tablet 6Active Active Problems ProblemNoted DateDiagnosed DateBipolar affective disorder, currently manic, lcxmuduv04/14/2023arpal tunnel qcvecnbp03/14/2023ervical ksibduguz47/14/2023 Obesity (BMI 30.0-34.9)11/26/2022Former smoker, stopped smoking in distant past 11/26/2022AD (generalized anxiety disorder)11/26/2022Hypertriglyceridemia without nfrjawwawluudgbeyxcx03/14/2023MDD (major depressive disorder)11/26/2022 Osteoarthritis of thumbs, nolescesd67/14/2023Other chronic pain11/26/2022Other intervertebral disc degeneration, lumbar scezew7111/26/2022aresthesia of skin 11/26/2022Sacroiliitis, not elsewhere uiuijqenqz45/14/2023Seasonal allergic pkksycja73/14/2023Spinal stenosis, lumbar region without neurogenic claudication 11/26/2022 Encounters DateTypeDepartmentCare MhyvPrsvbcwftww24/28/2025linisync Result Encounter NOMS External Department Unsolicited Provider, Generic External Data 02/16/2025[facility]stract [facility] [address] [place] [address] Hayley Mcghee NP 01/19/2025linisync Result Encounter NOMS External Department Unsolicited Provider, Generic External Data 01/19/2025bstract [facility] [address] [place] [address] Niesha Meyers MD 01/19/2025bstract [facility] [address] [place] [address] Niesha Meyers MD from Last 3 Months Immunizations ImmunizationAdministration DatesNext DueInfluenza, injectable, MDCK, preservative free, ywimjaehbslj53/14/2023Influenza, injectable, quadrivalent 05/21/2021Influenza, injectable, quadrivalent, preservative free03/28/2020, 02/24/2019 Family History Medical HistoryRelationNameCommentsNo Known ProblemsBrotherscottdob 1No Known ProblemsDaughter 3qbuahx6291Ea Known ProblemsDaughter 2zaoesuxo5717Pqviddeikt deathFatherclydedied 55Alcohol abuseFatherclydeOsteoarthritisMotherOsteoporosis Motherdob 1931No Known KxiemexcBsycuah1249XgpkuvxyHsruNlpeulAmcjwefsUcecubftbnfu AliveDaughter 1amandaAliveDaughter 2mellissaAliveFatherclydeDeceasedMotherAlive SonkyleAlive Social History Tobacco [...] relatives?Twice a week04/21/2023How often do you attend advent or church services?1 to 4 times per year04/21/2023o you belong to any clubs or organizations such as advent groups, unions, fraternal or athletic tricia ups, or school groups?No04/21/2023How often do you attend meetings of the clubs or organizations you belong to?Never04/21/2023re you , , , , never , or living with a partner?Ifltpsgpd12/07/2023 AUDIT-CAnswerDate RecordedQ1: How often do you have [...] hard at all04/21/2023 PHQ-2AnswerDate RecordedPatient Health Questionnaire-2 Txzhn908[facility] [place] [employer] - Occupational Stress QuestionnaireAnswerDate RecordedDo you feel stress - tense, restless, nervous, or anxious, or unable to sleep at night because yourmind is troubled all the time - these days?Only a orobhz1904/21/2023Exercise Vital SignAnswerDate RecordedOn average, how many days [...] steady place to sleep or slept in [facility] (including now)?No04/21/2023Sex and Gender InformationValueDate RecordedSex Assigned at BirthNot on fileLegal SfqVuwx8408/27/2022 6:51 PM EDT Gender IdentityNot on fileSexual OrientationNot on file Last Filed Vital Signs Vital SignReadingTime TakenCommentsBlood Vvqpyvns478/8601 1:54 PM EST Ojkdn4043/27/2025 1:54 PM GLDZjejksfpnmv40.5 ??C (97.7 ??F)07/11/2024 1:54 PM ESTRespiratory Ytjy154406/28/2022 3:01 PM ESTOxygen Kegeamuwny20%07/11/2024 1:54 PM ESTInhaled Oxygen Concentration--Jrmvwd898 kg (240 lb 9.6 oz)07/11/2024 1:54 PM KWEVlsfjd471 cm (6' 4 )07/11/2024 1:54 PM ESTBody Mass Index29.29007/11/2024 1:54 PM EST Plan of Treatment DateTypeDepartmentCare Team (Latest Contact Info)Gvfaefqkukv93/27/2026 1:20 PM ESTOffice Visit [facility] [place] [facility] [address] [place] [address] Hayley Mcghee, TRUCK TRAILER FINAL INSPECTOR [address] [place] [phone] Health MaintenanceDue DateLast DoneCommentsCT Gpvixafhnebn77/30/1964FIT-DNA 1963FIT1963FOBT1963 4462Bhazegtguncst79/30/1964Pneumococcal Vaccine: Pediatrics (0 to 5 Years) and At-Risk Patients (6 to 64 Years) (1 of 2 - PCV)12/12/1982COVID-19 Vaccine (2024- season)/06/2020, 09/20/2020, 08/24/2020Influenza Vaccine (#1)/, 05/21/2021, 03/28/2020, Additional history existsMedicare Annual Wellness (AWV)07/11/2025 3287Fmlgcptxxcm10Colorectal Cancer Ximnemagh67/23/2029 Procedures Procedure NamePriorityDate/TimeAssociated DiagnosisCommentsMR LUMBAR SPINE WO CON04/11/2025 5:55 PM EDT XR LUMBAR SPINE 6V W OVCXFYC1501/19/2025 11:21 AM EDT BBLJKLKICOSJyduxvf47/23/2019 12:00 PM EDT from Last 3 Months or Most Recently Relevant to Health Maintenance Results * MR LUMBAR SPINE WO CON (04/11/2025 5:55 PM EDT)Anatomical RegionLaterality ModalityOtherSpecimen (Source)Anatomical Location / LateralityCollection Method / VolumeCollection TimeReceived Time04/11/2025 5:55 PM EDT Narrative 04/11/2025 5:58 PM EDT [facility] ?[address] ? [place] [address] ? Magnetic Resonance Report ? Signed ? Patient: BUTLER,LARRY ?MR#: [id number] ?? : 1965 ?Acct:[id number] ?? Age/Sex: 59 / M ?ADM Date: 04/11/25 ?? Loc: MRI ? Attending Dr: Hua Singer TRUCK TRAILER FINAL INSPECTOR ? Ordering Physician: Hua Singer NP ?? Date of Service: 04/11/25 ?? Procedure(s): MR lumbar spine wo con ?? Accession Number(s): [id number] ? cc: NIESHA MEYERS ; Hua Singer NP ? [facility] ? [address] [facility] ? [place] [address] ? Patient Name: ?? LARRY ??BUTLER ? MRN: [facility]:[id number] ? date: 1965 ?Sex: M ?? Assigned Patient Location: MRI ?? Current Patient Location: MRI ?? Accession/Order Number: [id number] ?? Exam Date: 04/11/2025 ??09:47 ?Report Date: 04/11/2025 ??17:55 ? At the request of: ?? HUA ??LUCRECIA ??TRUCK TRAILER FINAL INSPECTOR ? Procedure: ??MR lumbar spine wo con [...] disc bulge with moderate facet arthropathy. ? Jizn-nk-zfyiqlnj central canal stenosis and mild neural foraminal narrowing. ? L3-4: Circumferential disc bulge with facet arthropathy. ??Endplate ?? osteophytosis extending to both foraminal zones causing xjaw-ps-qzaglvpn ?? right-sided and moderate left-sided neural foraminal narrowing. ??There is ?? kell-vw-qzksikhw central stenosis and moderate bilateral subarticular recess [...] M.D. ??04/11/2025 5:55 PM ? Dictation Location: RADIO-PC-29 ? Electronically authenticated by: [id number] ??Y ?? Date: 04/11/2025 ??17:55 ? Dictated By: ?Wayne Odom M.D. ? Signed By: ?04/11/25 1758 ? DD/ 1755 ? TD/TT: ? Tobacco Hanger: Procedure Note Radiology, Radiologist, - 04/11/[address] [place] [address] Magnetic Resonance Report Signed Patient: LARRY BUTLERMR#: [id number] : 1965Acct:[id number] Age/Sex: 59 / MADM Date: 04/11/25 Loc: MRI Attending Dr: Hua Singer NP Ordering Physician: Hua Singer NP Date of Service: 04/11/25 Procedure(s): MR lumbar spine wo con Accession Number(s): [id number] cc: NIESHA MEYERS ; Hua Singer NP The [place] [address] Patient Name: LARRY BUTLER MRN: [id number] date: 1965 Sex: M Assigned Patient Location: MRI Current Patient Location: MRI Accession/Order Number: [id number] Exam Date: 04/11/2025 09:47 Report Date: 04/11/2025 [...] Broad-based disc bulge with moderate facet arthropathy. Webv-ok-eprbhtcl central canal stenosis and mild neural foraminalnarrowing. L3-4: Circumferential disc bulge with facet arthropathy. Endplate osteophytosis extending to both foraminal zones causing kxln-qp-eeccouzi right-sided and moderate left-sided neural foraminal narrowing. There is wwlh-mq-qcbnvsaf central stenosis and moderate bilateral subarticularrecess narrowing. L4-5: Circumferential disc bulge and uncovering the posterior disc due tothe anterolisthesis. Bilateral facet arthropathy, severe. There is a 7 mm synovial cyst on the left extending to the canal is dorsal to the U1fbmimpmze body causing severe effacement There is moderate [...] Odom M.D. 04/11/2025 5:55 PM Dictation Location: [place] [address] Electronically authenticated by: [id number] Y Date: 7:55 Dictated By: Wayne Odom M.D. Signed By:04/11/251757 DD/ 54 TD/TT: Tobacco Hanger: Authorizing ProviderResult TypeResult StatusGeneric External Data Provider CLINISYNC IMAGINGFinal Result * XR LUMBAR SPINE 6V W BENDING (01/19/2025 11:21 AM EDT)Anatomical Region LateralityModalityOtherSpecimen (Source)Anatomical Location / Laterality Collection Method / VolumeCollection TimeReceived Time01/19/2025 11:21 AM EDT Narrative 01/19/2025 11:23 AM EDT [facility] ?[address] ? [place] [address] ?XRay Report ? Signed ? Patient: BUTLER,LARRY ?MR#: [id number] ?? : 1965 ?Acct:[id number] ?? Age/Sex: 59 / M ?ADM Date: 01/19/25 ?? Loc: RAD ? Attending Dr: Hua Singer TRUCK TRAILER FINAL INSPECTOR ? Ordering Physician: Hua Singer NP ?? Date of Service: 01/19/25 ?? Procedure(s): XR lumbar spine 6V w bending ?? Accession Number(s): [id number] ? cc: NIESHA MEYERS ; Hua Singer NP ? [facility] ? [address] ? [place] [address] ? Patient Name: ?? LARRY ??BUTLER ? MRN: [facility]:[id number] ? date: 1965 ?Sex: M ?? Assigned Patient Location: RAD ?? Current Patient Location: RAD ?? Accession/Order Number: [id number] ?? Exam Date: 01/19/2025 ??11:15 ?Report Date: 01/19/2025 ??11:21 ? At the request of: ?? HUA ??LUCRECIA ??TRUCK TRAILER FINAL INSPECTOR ? Procedure: ??XR lumbar spine 6V w [...] M.D. ??01/19/2025 11:21 AM ? Dictation Location: [facility]-- ? Electronically authenticated by: [id number] ??Y ?? Date: 01/19/2025 ??11:21 ? Dictated By: ?Chica Reed M.D. ? Signed By: ?01/19/25 1123 ? DD/ 1121 ? TD/TT: ? Tobacco Hanger: Procedure Note Radiology, Radiologist, - 01/19/[address]25 [place] [address] XRay Report Signed Patient: LARRY BUTLERMR#: [id number] : 1965Acct:[id number] Age/Sex: 59 / MADM Date: 01/19/25 Loc: [facility] Attending Dr: Hua Singer NP Ordering Physician: Hua Singer NP Date of Service: 01/19/25 Procedure(s): XR lumbar spine 6V w bending Accession Number(s): [id number] cc: NIESHA MEYERS ; Hua Singer NP [facility] [place] [address] Patient Name: LARRY BUTLER MRN: [id number] date: 1965 Sex: M Assigned Patient [facility]: [facility] Current Patient Location: RAD Accession/Order Number: [id number] Exam Date: 01/19/2025 11:15 Report Date: 01/19/2025 [...] Reed M.D. 01/19/2025 11:21 AM Dictation Location: [place] [address] Electronically authenticated by: [id number] Y Date: 1:21 Dictated By: Chica Reed M.D. Signed By:01/19/25 1123 DD/ 1121 TD/TT: Tobacco Hanger: Authorizing ProviderResult TypeResult StatusGeneric External Data Provider CLINISYNC IMAGINGFinal Result * Colonoscopy (10/05/2018 12:00 PM EDT)Anatomical RegionLateralityModality EndoscopySpecimen (Source)Anatomical Location / LateralityCollection Method / VolumeCollection TimeReceived Time10/05/2018 12:00 PM EDT Narrative 10/05/2018 12:00 PM EDT PERFORMED AT [facility] LOCATION:[id number] Normal Procedure Note CONVERSION, GENERIC - 10/29/2022 PERFORMED AT [facility] LOCATION:[id number] Normal Authorizing ProviderResult TypeResult StatusNiesha Meyers MDENDOSCOPY PROCEDURE ORDERABLESFinal Result from Last 3 Months or Most Recently Relevant to Health [place] [address] Care Teams Team MemberRelationshipSpecialtyStart DateEnd Date Niesha Meyers MD [address] [place] [address] PCP - GeneralFamily Medicine11/18/22 Hayley Mcghee NP [address] [place] [address] Nurse PractitionerFamily Bocjgnrw59/29/25
--- OUTSIDE RECORDS SUMMARY | 2025-04-20 13:50 | XMS_ITS | Patient Health Record ---
Author Organization [facility] Address [address] [place] [address] Care Team Providers Care Vehicle Operator Name Role Phone Eunice Bright Primary Care Provider Dr. Medhat Flores Unavailable [phone] Checo Grayson Unavailable [phone] Yuliana English Unavailable [phone] Celina Person Unavailable [phone] Martha Rider Unavailable [phone] Radha Hill Unavailable [phone] Allergies No Known Allergies Reason For Referral [...] the past year?Less than monthly (1 point) Nzvzgx2VcftxjgennnjahJeifjaknYogwwaf Use:Social InfoQuestionAnswerNotesTobacco Control (Standard)Tobacco use:Current smoker? How often do you smoke cigarettes? Every day? How many cigarettes a day do you smoke?5 or less Problems Problem Type SNOMED Code ICD Code Onset Dates Problem Status W/U Status Risk Notes Problem Bipolar affective di sorder, currently manic, moderate (349166030) Bipolar 1 disorder with moderate earline (F31.12) Activeconfirmed Vital Signs Heart Rate 86 /min 02/22/2025 Bjndlortjfv16.8 degrees Ppsaisgqsm55/12/8280Ihaafcni53 %02/22/2025lood pressure ebszyulhb38 mm Hg02/22/20253946Ilxqcr89 in02/22/2025lood pressure cfgtylbb972 mm Hg 02/22/20257872Phutvd046.0 lbs02/22/2025BMI27.38 kg/m202/22/2025 Encounters Encounter Location Date Provider Diagnosis [facility] [address] [place] [address] 08/30/2024 Checo Grayson Bipolar 1 disorder with moderate earline F31.12 [facility] [address] [place] [address] 03/29/2025 Eunice Bright Bipolar 1 disorder with moderate earline F31.12 [facility] [address] [place] [address] 02/22/2025 Eunice Bright Bipolar 1 disorder with moderate earline F31.12 [facility] [place] [address] [facility] [place] [address] 08/24/2024 Checo Grayson Bipolar 1 disorder with moderate earline F31.12 [facility] [address] [place] [address] 05/06/2024 Medhat Mark Dental caries on pit and fissure surface penetrating into dentin K02.52 ; Necrosis of pulp K04.1 ; Encounter for dental examination and cleaning with abnormal findings Z01.21 ; Other dental procedure status Z98.818 and Disturbances in tooth eruption K00.6 [facility] [address] [place] [address] 05/09/2024 Celina Person Acute gingivitis, plaque induced K05.00 [facility] [address] [place] [address] 04/05/2025 Yuliana English Acute gingivitis, plaque induced K05.00 ; Other dental procedure status Z98.818 ; Encounter for dental examination and cleaning with abnormal findings Z01.21 and Dental caries on pit and fissure surface penetrating into dentin K02.52 [facility] [address] [place] [address] 09/27/2024 Martha Rider [facility] [place] [address]/2025 Martha Rider Assessments Encounter Date Diagnosis (ICD Code) Assessment [...] 02:00:00 PM, [address], [place], [address], Provider Name:Martha Nailsruy, 08/03/2025 01:00:00 PM, [address], [place], [address], Provider Name:Eunice Poonam harper, 08/22/2025 11:45:00 AM, [address], [place], [address], Provider Name:Yuliana English , 10/23/2025 09:30:00 AM, [address], [place], [address], Insurance Providers Payer Name Payer Address Payer Phone Subscriber Number Group Number Insured Name Patient Relationship to Insured Coverage Start Date Coverage End Date [employer] MED[employer]ARE ADVANTAGE [address] [place] [phone] [id number] STEVE POWELL Self - patient is the insured 3 [address]NA[address] [place] [id number] Gavin BUTLER - patient is the [id number] CLAIMS [address] [address] [place] [id number], PAUL Self - patient is the [id number] [facility] [address] [address] [place] [id number], PAULSelf - patient is the [id number] AET[employer] MEDICAREPO [address] [place] [id number], PAULKaterynaf - patient is the [id number] [employer] MEDICAREPO [address] [address] [place] [id number] Self - patient is the [id number] 2022 Medical (General) History Medical History History ICD Code back injury bipolarSurgical History Surgery Date(Month/Year) hernia tonsillectomyablation-11/02
--- NOTE | 2025-04-20 14:17 | PM.CN ---
Consult Note: HPI Data of Consult Patient: known to practice within the last 3 years Consult date: 03/30/25 Requesting Physician: Minerva Fontana NP Primary Care Provider: NIESHA WOLFE Consult Narrative Reason for consult: back pain Narrative: Larry Martin a pleasant 59 year old male presents for evaluation of chronic low back and left leg pain. Pain today tight 1-2/10 increasing to 3/10 with standing, walking, bending, pushing, pulling. notes improvement with lying, sitting, and heat. currently utilizing tylenol, baclofen, diclofenac with moderate benefit without side effects. pt recently completed lumbar MRI with results below. patient notes pain has since improved since last visit and is well controlled. cc:: CC: Minerva Fontana NP Review of Systems ROS Musculoskeletal Reports: back pain and extremity pain Meds Home Medications and Allergies Home Medications ?Medication ?Instructions ?Recorded ?Confirmed ?Type baclofen 10 mg tablet See Rx Instructions .Route 01/19/25 Rx .COMPLEX PRN muscle spasm #90 tabs bupropion HCl 100 mg tablet 100 mg PO DAILY 01/19/25 01/19/25 History diclofenac sodium 50 mg 50 mg PO TID PRN pain 01/19/25 01/19/25 History tablet,delayed release lamotrigine 200 mg tablet 100 mg PO DAILY 01/19/25 01/19/25 History (Lamictal) montelukast 10 mg tablet 10 mg PO DAILY PRN sob 01/19/25 01/19/25 History (Singulair) quetiapine 400 mg tablet 400 mg PO DAILY 01/19/25 01/19/25 History Exam Constitutional Documenting provider has reviewed patient's vital signs: yes Common normals: no apparent distress, oriented x3, healthy appearing, alert and well nourished General appearance: cooperative [facility] Common normals: normocephalic, hearing grossly normal bilaterally and moist oral mucous membranes Head and scalp: normocephalic Eye Common normals: PERRL Pupil: PERRL Neck & C-Spine Common normals: full ROM General: normal visual inspection Chest Common normals: inspection of chest normal Respiratory Common normals: normal respiratory effort, no retractions and no use of accessory muscles Back & Pelvis Lumbar spine/lower back: lumbar ROM normal and straight leg raise negative bilaterally; ROM not limited, no pain with ROM, no lumbar spinal tenderness and no paraspinal muscle tenderness Other: sensation intact BLE strength 5/5 on exam Neuro Common normals: oriented x3 Sensorium/orientation: alert Psych Common normals: mental status grossly normal, thought process normal, cooperative, affect normal, speech normal and activity/motor behavior normal Speech: normal speech Thought process: normal thought process Results Imaging Lumbar xray: Attestation: I have reviewed the pertinent imaging results. Radiologist's impression: AP, lateral (neutral, flexion and extension, both oblique and lateral coned-down views of the lumbosacral junction were obtained. There is subtle levoscoliotic curvature. There is no evidence of fracture. There is approximately 5 to 6 mm of anterolisthesis of L4 and L5. This is slightly less prominent with extension. There is mild disc space narrowing from L3 - 4 down. There is minor endplate spurring and mild lower lumbar facet disease. No pars defect is identified. The sacroiliac joints are maintained and show mild degenerative change. There are no paraspinal soft tissue abnormalities. Lumbar MRI: Attestation: I have reviewed the pertinent imaging results. Radiologist's impression: FINDINGS: Lumbar vertebral heights are maintained. Anterolisthesis L4 on L5 is identified measuring 6 mm. Mild disc space narrowing L3-S1. Multilevel facet arthropathy. Conus medullaris service normally at the superior plate of L2. Multilevel Schmorl's node deformities greatest L2-L3. Involving the superior plate of L3, there are Modic type II endplate changes corresponding to the Schmorl's node/superior plate depression.. T12-L1: Only visualized sagittal images. Minimal disc desiccation with inferior plate Schmorl's node at T12. Canal and neural foramina patent. L1-L2: Schmorl's node deformities. Tiny left central protrusion extending cranially. Facet arthropathy. Minor central canal narrowing. Mild neural from narrowing. L2-3: Broad-based disc bulge with moderate facet arthropathy. [id number] central canal stenosis and mild neural foraminal narrowing. L3-4: Circumferential disc bulge with facet arthropathy. Endplate osteophytosis extending to both foraminal zones causing [id number] right-sided and moderate left-sided neural foraminal narrowing. There is pnra-[id number] central stenosis and moderate bilateral subarticular recess narrowing. L4-5: Circumferential disc bulge and uncovering the posterior disc due to the anterolisthesis. Bilateral facet arthropathy, severe. There is a 7 mm synovial cyst on the left extending to the canal is dorsal to the L5 vertebral body causing severe effacement There is moderate canal and moderate severe right and severe left subarticular recess narrowing and encroachment upon the L5 nerve roots. Findings appear most pronounced in left. Otherwise moderate severe left greater than right neural foraminal narrowing. L5-S1: Circumferential disc bulge with left central protrusion. There is evidence of moderate facet arthropathy. Moderate left greater than right neural foraminal narrowing. Moderate neural from narrowing. Additional Findings Additional findings: If on a controlled substance or opioids, I have checked an [place] report on this patient and there are no aberrancies noted in the prescribing history.??If on a controlled substance or opioid a drug screen was completed and reviewed within the last year, and if there has not been a drug screen completed we ordered one today to monitor higher risk, state monitored pain medication use. As part of providing excellent, safe, comprehensive care, the following was completed at our patient's visit: 1. A medication reconciliation and review to ensure accurate knowledge of current/active medications, including asking our patients to inform us about any dcjk-xph-skzavpf medications or herbal remedies/nutritional supplements/alternative remedies. 2. A review to specifically ensure our patients have had annual screening for screening for depression, screening for tobacco use, and screening for unhealthy alcohol use. For concerning screenings had a discussion with the patient, provided patient education, and recommended follow-up with primary care provider when appropriate. If patient noted with a risk of falling, they received education on strength, gait, and balance training to prevent future risk of falling. Portions of this note may have been carried over from the previous visit and updated as appropriate. Please note this office utilizes paper charting in addition to the electronic medical record. A list of current medications, vitals, and PMH is available there as the clinical staff outside of myself do not have access to [facility] charting during the clinic day operations. As part of providing quality comprehensive care the current medications, vitals, and PMH were reviewed in the paper chart. Assessment and Plan Assessment and Plan (1) Lumbar stenosis with neurogenic claudication: Assessment and Plan: YAYA 16%, improved from prior (2) Lumbar spondylosis: (3) Degenerative disc disease (DDD) of lumbar region with axial back pain without leg pain: Plan The patient has had over 3 months of moderate to severe low back pain with functional impairment and inadequate response to conservative care including NSAIDS (unless there are contraindication such as concurrent blood thinners), multiple oral or topical pain medications, and home exercise program/physical therapy.? Patient has completed >6 weeks of guided home exercise program and/or formal physical therapy program without relief of their symptoms.? I have reviewed the imaging of the lumbar spine and no red flags were identified.? The Oswestry Disability Index was completed, and the patient scored a 18%.? lumbar MRI reviewed with pt, pain very well controlled at this time. defer interventional therapy. defer NS consultation continue baclofen 5-10mg tid prn pain/spasms continue f/u with PCP regarding asymptomatic htn, i have advised pt to decrease diclofenac as tolerated. continue HEP as tolerated f/u 4 months, sooner if needed
== END 2025-04-20 13:45 | disposition home or self-care (01) ==
LOC: PM 13:45
PROVIDERS: PCP Family Medicine; Visit Provider Nurse Practitioner
DX: M48.062 Spinal stenosis, lumbar region with neurogenic claudication (principal); M47.816 Spondylosis without myelopathy or radiculopathy, lumbar region; M51.360 Other intervertebral disc degeneration, lumbar region with discogenic back pain only
CPT/HCPCS: G0463